=== PATIENT | female | born 1955 | race Hispanic/Latino ===

== ENCOUNTER 2019-05-17 19:24 | Inpatient (IN) | payer OTHER ==
[2019-05-17] VITALS: BP 166/84
[~2019-05-17] VITALS: Ht 157.5 cm; Wt 193.9 kg
--- OUTSIDE RECORDS SUMMARY | 2019-05-17 19:27 | XMS REPORT ---
Author [facility] Address Unknown Phone Unavailable Care Team Providers Care Spice Fumigator Name Role Phone Unavailable Unavailable Problems This patient has no known problems. Allergies, Adverse Reactions, Alerts This patient has no known allergies or adverse reactions. Medications This patient has no known medications. Encounters Start Date/Time End Date/Time Encounter Type Admission Type Attending [facility] [place] Facility Care Department Encounter ID 2018-01-22 00:00:00 2018-01-22 00:00:00 Outpatient [facility] [id number] 2018-01-19 00:00:00 2018-01-19 00:00:00 Outpatient [facility] [id number] 2018-01-10 09:57:35 2018-01-10 09:57:35 Outpatient [facility] [id number] 2018-01-10 05:48:56 2018-01-10 05:48:56 Emergency [facility] [id number] 2018-01-10 00:16:25 2018-01-10 00:16:25 Emergency [facility] [id number] 2018-01-10 00:00:00 2018-01-10 00:00:00 Outpatient [facility] [id number] 2018-01-09 22:42:35 2018-01-09 22:42:35 Emergency [facility] [id number] 2018-01-09 17:48:24 2018-01-09 17:48:24 Emergency [facility] [id number] 2018-01-09 16:13:33 2018-01-09 16:13:33 Outpatient [facility] [id number] 2017-09-11 06:36:22 2017-09-11 06:36:22 Outpatient [facility] [id number] 2017-09-04 11:29:25 2017-09-04 11:29:25 Outpatient [facility] [id number] 2017-08-21 07:49:10 2017-08-21 07:49:10 Outpatient [facility] [id number] 2017-08-18 04:43:03 2017-08-18 04:43:03 Outpatient [facility] [id number] 2017-08-18 00:00:00 2017-08-18 00:00:00 Outpatient [facility] [id number] 2017-08-17 19:39:58 2017-08-17 19:39:58 Emergency [facility] [id number] 2017-08-17 13:54:32 2017-08-17 13:54:32 Outpatient [facility] [id number] 2017-08-01 10:20:21 2017-08-01 10:20:21 Outpatient [facility] [id number] 2017-07-05 08:47:52 2017-07-05 08:47:52 Outpatient [facility] [id number] 2017-06-27 09:29:44 2017-06-27 09:29:44 Outpatient [facility] [id number] 2017-05-24 00:00:00 2017-05-24 00:00:00 Outpatient [facility] [id number] 2017-04-26 14:49:01 2017-04-26 14:49:01 Outpatient [facility] [id number] 2017-04-24 00:00:00 2017-04-24 00:00:00 Outpatient [facility] [id number] 2017-04-21 12:43:26 2017-04-21 12:43:26 Outpatient [facility] [id number] 2017-04-21 11:15:57 2017-04-21 11:15:57 Outpatient [facility] [id number] 2017-03-22 11:18:55 2017-03-22 11:18:55 Outpatient [facility] [id number] 2017-03-22 06:27:32 2017-03-22 06:27:32 Outpatient [facility] [id number] 2017-03-21 15:47:18 2017-03-21 15:47:18 Outpatient [facility] [id number] 2017-03-21 13:59:59 2017-03-21 13:59:59 Outpatient [facility] [id number] 2017-03-21 06:17:34 2017-03-21 06:17:34 Emergency [facility] [id number] 2017-03-21 04:04:37 2017-03-21 04:04:37 Outpatient [facility] [id number] 2017-03-20 23:59:31 2017-03-20 23:59:31 Emergency [facility] [id number]
[2019-05-17] MEDS ORDERED: VANCOMYCIN 1GM/NS 250 ML 250 ML IV ONE (20:00)
[2019-05-17] MEDS ORDERED: VANCOMYCIN 1GM/NS 250 ML 250 ML ONE (20:26)
[2019-05-17] MEDS ORDERED: PIPERACILLIN/TAZO 2.25 GM 50 ML IV ONE (21:15)
[2019-05-17] MEDS: SODIUM CHLORIDE 0.9% 1000ML 1,000 ML IV SCH (21:20)
[2019-05-17] MEDS ORDERED: PIPER-TAZ 3.375 GM 50 ML ONE (21:23)
[2019-05-17] MEDS ORDERED: CIPRO500 MG PO (22:35)
[2019-05-17] MEDS ORDERED: FUROSEMIDE40 MG PO (22:35)
[2019-05-17] MEDS ORDERED: BACTRIM DS TAB1 EACH PO (22:35)
[2019-05-17] MEDS ORDERED: TRAZODONE HCL50 MG PO (22:35)
[2019-05-17] MEDS ORDERED: FLUOXETINE HCL10 MG PO (22:35)
--- NOTE | 2019-05-17 23:15 | NUR ---
Received patient from ems via stretcher. No resp distress at this time. Applied n/c 2L for 91% pulse ox. AAOX4. Noted abd redness and hot to touch. C/O pain to epigastric area of 5 pain scale. LAC 20# intact and patent. Call light within reach and instructed to call for assistance. Patient verbalized understanding.
[2019-05-17] MEDS ORDERED: ULTRAM 50MG50 MG PO (23:46)
[2019-05-17] MEDS ORDERED: GABAPENTIN300 MG PO (23:47)
[2019-05-17] MEDS ORDERED: LISINOPRIL10 MG PO (23:49)
[2019-05-17] MEDS ORDERED: VERAPAMIL ER120 MG (23:49)
[2019-05-17] MEDS ORDERED: CLONIDINE HCL0.1 MG PO (23:51)
[2019-05-17] MEDS ORDERED: CARVEDILOL12.5 MG PO (23:52)
[2019-05-17] MEDS ORDERED: ATORVASTATIN CA20 MG PO (23:52)
[2019-05-18] VITALS (10 sets, daily range): BP systolic 100–186; BP diastolic 46–84
--- NOTE | 2019-05-18 00:10 | NUR ---
Called neon electrician IVELISSE Jay for pain med and xray to bilat hip.
[2019-05-18] MEDS: TRAMADOL HCL 50 MG TAB PO PRN ×2 (00:30→12:15)
[2019-05-18] MEDS ORDERED: HUMALOG MI100 UNITS/ (01:02)
--- NOTE | 2019-05-18 06:26 | NUR ---
Ivett INCLUSION PARAEDUCATOR here for rounding. Received orders for specialty bed, BSC, and recliner.
[2019-05-18] MEDS ORDERED: HYDRALAZINE HCL 20 MG/ML VIAL IV PRN (07:00)
[2019-05-18] MEDS ORDERED: LORAZEPAM INJ 2 MG/ML VIAL IV ONE (07:00)
[2019-05-18] MEDS: SODIUM CHLORIDE 0.9% 1000ML 1,000 ML IV SCH ×2 (07:13→17:13)
--- NOTE | 2019-05-18 07:27 | NUR ---
Received bedside report from night nurse. Patient awake and sitting up in bed, no signs of distress or c/o pain at this time. All safety measures in place. Patient currently getting ready to leave unit for imaging tests. Will continue to monitor upon return.
[2019-05-18 07:47] LABS: BASOPHILS % 0.5 % (0.0-1.0); EOSINOPHILS # (AUTO) 0.2 (0.0-0.4); EOSINOPHILS % 3.1 % (0.0-6.0); HEMATOCRIT 29.2 % (34.2-44.1); HEMOGLOBIN 9.1 g/dL (12.0-16.0); LYMPHOCYTES % 12.6 % (18.0-39.1); MEAN CORPUSCULAR HEMOGLOBIN 27.2 pg (28-32); MEAN CORPUSCULAR HGB CONC 31.2 g/dL (31-35); MEAN CORPUSCULAR VOLUME 87.4 fL (81-99); MONOCYTES # (AUTO) 0.8 (0.2-0.8); MONOCYTES % 10.5 % (4.4-11.3); NEUTROPHILS # (AUTO) 5.7 (2.1-6.9); NEUTROPHILS % 72.8 % (38.7-80.0); PLATELET COUNT 221 x10e3/uL (140-360); RED BLOOD COUNT 3.34 x10e6/uL (3.6-5.1); RED CELL DISTRIBUTION WIDTH 15.7 % (11.7-14.4)
[2019-05-18 08:00] LABS: ANION GAP 15.2 mmol/L (8-16); CALCIUM 9.6 mg/dL (8.4-10.2); CREATININE, SERUM 2.73 mg/dL (0.57-1.11); POTASSIUM 4.2 mmol/L (3.5-5.1)
[2019-05-18 08:05] LABS: B-TYPE NATRIURETIC PEPTIDE2 68.9 pg/mL (0-100)
--- NOTE | 2019-05-18 08:39 | Diagnostic Imaging Report ---
EXAM: CT Abdomen and Pelvis WITHOUT contrast INDICATION: ^r/o abscess ^[id number] ^[id number] COMPARISON: None. TECHNIQUE: Abdomen and pelvis were scanned utilizing a multidetector helical scanner from the lung base to the pubic symphysis without administration of IV contrast. Absence of intravenous contrast decreases sensitivity for detection of focal lesions and vascular pathology. Coronal and sagittal reformations were obtained. Routine protocol was performed. IV CONTRAST: None. ORAL CONTRAST: None RADIATION DOSE: Total DLP: 1504 mGy*cm Estimated effective dose: (DLP x 0.015 x size factor) mSv COMPLICATIONS: None FINDINGS: LINES and TUBES: None. LOWER THORAX: Coronary artery calcifications. HEPATOBILIARY: No focal hepatic lesions. No biliary ductal dilation. GALLBLADDER: No radio-opaque stones or sludge. No wall thickening. SPLEEN: No splenomegaly. PANCREAS: No focal masses or ductal dilatation. ADRENALS: No adrenal nodules KIDNEYS/URETERS: No hydronephrosis. No cystic or solid mass lesions. No stones. GI TRACT: No abnormal distention, wall thickening, or evidence of bowel obstruction. Appendix is not visualized. PELVIC ORGANS/BLADDER: Unremarkable. LYMPH NODES: No lymphadenopathy. VESSELS: Unremarkable. PERITONEUM / RETROPERITONEUM: No free air or fluid. BONES: Pars defects at L5-S1 with associated minimal anterolisthesis of L5 over S1 and moderate degenerative changes at L5-S1. SOFT TISSUES: Extensive fat stranding with adjacent skin thickening in the right gluteal subcutaneous fat without fluid collections or abscess. IMPRESSION: 1. Extensive cellulitis of the right gluteal subcutaneous fat without drainable fluid collections or abscess. 2. No intra-abdominal pelvic abscess or fluid collections. Signed by: Dr. Luciana Mueller M.D. on 05/18/2019 8:35 AM
--- NOTE | 2019-05-18 08:40 | Diagnostic Imaging Report ---
LEFT KNEE X-RAY - 2 VIEWS HISTORY: ^pain s/p fall ^[id number] ^[id number] COMPARISON: None available. FINDINGS: Bones: No acute displaced fracture on limited evaluation. Osseous alignment is within normal limits. Joints: Moderate tricompartmental degenerative changes. Soft tissues: The soft tissues appear unremarkable. IMPRESSION: No acute displaced fractures on limited evaluation. Noted that the lateral tibial plateau is not well visualized and a small nondisplaced fracture cannot be excluded. Signed by: Dr. Luciana Mueller M.D. on 05/18/2019 8:37 AM
[2019-05-18] MEDS: PIPERACILLIN/TAZO 2.25 GM 50 ML IV SCH ×2 (08:41→12:01)
[2019-05-18] MEDS ORDERED: PIPERACILLIN/TAZO 2.25 GM 50 ML IV SCH (09:00)
[2019-05-18] MEDS: CLONIDINE HCL 0.1 MG TAB PO SCH ×3 (10:00→21:27)
[2019-05-18] MEDS: CARVEDILOL 12.5 MG TAB PO SCH (10:00)
[2019-05-18] MEDS: FLUOXETINE HCL 10 MG CAP PO SCH (10:00)
[2019-05-18] MEDS: GABAPENTIN 300 MG CAP PO SCH ×2 (10:00→17:40)
[2019-05-18] MEDS: VERAPAMIL HCL 120 MG TABSR PO SCH ×2 (10:00→17:40)
[2019-05-18] MEDS: VANCOMYCIN 1GM/NS 250 ML 250 ML IV SCH (10:00)
[2019-05-18] MEDS: FUROSEMIDE 40 MG TAB PO SCH (10:08)
[2019-05-18 10:27] LABS: CHOL/HDL RATIO 1.9 (3.0-3.6)
[2019-05-18 10:48] LABS: THYROID STIMULATING HORMONE 1.433 uIU/mL (0.350-4.940)
[2019-05-18] MEDS: MORPHINE SULFATE INJ 4 MG/ML INJ 1ML IV PRN ×2 (11:02→17:55)
--- NOTE | 2019-05-18 16:40 | NUR ---
Nutrition Screen Note RD Recommendation for Physician: 1.Continue with current diet as ordered, add diabetic restrictions Plan of Care: RD following, monitoring for tolerance and adequacy Nutrition reason for involvement: Nutrition Risk Trigger Primary Diagnose(s): Abdominal wall cellulitis PMH: Diabetes Type 2, HTN- per pt Ht: 62in Wt: 426lbs BMI: 77.9kg/m2 IBW:110lbs +/- 10% RD Assessment: (05/18) Chart reviewed. Labs and meds reviewed. 63 y/o Icelandic-speaking F complaining of abdominal pain during time of visit. Pt daughter at bedside and able to provide additional nutrition related hx for patient. Patient reports fair intake and appetite during admission, eating better at home. PTC showed 100% meal consumption. Reported stable weight and denied any significant recent weight changes. Denied any ongoing N/V/D/C or difficulties with chewing/swallowing. Will continue to monitor and follow as needed. Current Diet: Cardiac Diet Malnutrition Evaluation (05/18) The patient does not meet criteria for a specified degree of malnutrition at this time. Will re-evaluate at follow-up as appropriate. Diet Education Needs Assessment: Diet education not indicated. Nutrition Care Level: LOW Signed: Britta Brody, MS, RDN, LD
--- NOTE | 2019-05-18 16:56 | NUR ---
PT requested lower bariatric bed for patient d/t difficulty getting back into bed. Charge nurse called [facility] ( ) to put in order. Confirmation number [id number].
--- NOTE | 2019-05-18 17:04 | NUR ---
[facility] that patient's current bariatric bed is lowest bed available. No lower bed available.
--- NOTE | 2019-05-18 19:27 | NUR ---
Bedside report given to night nurse. Patient resting in bed, in stable condition. All safety measures in place. Family at bedside.
--- NOTE | 2019-05-18 19:33 | Consultation ---
DATE OF CONSULTATION: 05/18/2019 REASON FOR CONSULTATION: Cellulitis of abdominal wall. HISTORY OF PRESENT ILLNESS: This patient, who is a morbidly obese 63-year-old female, comes in with abdominal swelling and redness for the last month. She took oral antibiotic without any improvement. The patient came to the hospital because of the redness and swelling. The patient, who is currently lying in bed. She does have underlying history of hypertension, morbidly obese patient. Family not so sure if she have also congestive heart failure, but they told me she has underlying chronic kidney disease. So the patient was admitted and I am asked to see her because of failing oral antibiotic. The patient is admitted. LABORATORY DATA: White count 7.8 and hemoglobin 9.1. Her sodium 138, potassium 4.2, creatinine 2.73, and glucose is 262. The patient had CT of abdomen and pelvis, which showed extensive cellulitis of the right gluteus subcutaneous with fat and there is no drainable abscess. REVIEW OF SYSTEMS: GENERAL: She is just not feeling well. HEENT: There is no headache, visual changes, or hearing changes. GI: There is no nausea, no vomiting. LUNGS: She does have exertional shortness of breath. Otherwise, review of systems unremarkable. MEDICATION LIST: Reviewed. She is currently on Catapres, Ultram, she was on Zosyn as mentioned above, Lasix, Calan, and vancomycin 1 g q.24. PHYSICAL EXAMINATION: GENERAL: She is currently alert and oriented, obese, and does not seem to be in acute distress. HEENT: Not icteric. CHEST: Clear bilateral. HEART: S1 and S2. ABDOMEN: Obese, there is erythema. There is edema noted on the abdominal wall. IMPRESSION: 1. Abdominal cellulitis. The patient is morbidly obese. 2. Chronic kidney disease. 3. Congestive heart failure. 4. Generalized edema. 5. Failure of outpatient oral antibiotic due to her obesity and significant edema. I would recommend to put her on vancomycin and cefepime. We will follow vancomycin trough. We will discontinue Zosyn since she has high salt burden. 6. Diabetes. 7. Obesity. 8. Chronic kidney disease. 9. Debility. We will follow. MD DRISS Esparza/FRANCESCA /[id number]
[2019-05-18] MEDS: ATORVASTATIN 40 MG TAB PO SCH (21:27)
[2019-05-19] VITALS (8 sets, daily range): BP systolic 115–156; BP diastolic 54–86
[2019-05-19] MEDS: SODIUM CHLORIDE 0.9% 1000ML 1,000 ML IV SCH ×3 (03:13→23:13)
[2019-05-19 04:43] LABS: BASOPHILS % 0.5 % (0.0-1.0); EOSINOPHILS # (AUTO) 0.5 (0.0-0.4); EOSINOPHILS % 5.7 % (0.0-6.0); HEMOGLOBIN 8.4 g/dL (12.0-16.0); LYMPHOCYTES # (AUTO) 1.2 (1.0-3.2); LYMPHOCYTES % 13.9 % (18.0-39.1); MEAN CORPUSCULAR HEMOGLOBIN 26.8 pg (28-32); MEAN CORPUSCULAR VOLUME 89.5 fL (81-99); MONOCYTES # (AUTO) 0.9 (0.2-0.8); MONOCYTES % 11.4 % (4.4-11.3); NEUTROPHILS # (AUTO) 5.7 (2.1-6.9); NEUTROPHILS % 68.1 % (38.7-80.0); PLATELET COUNT 231 x10e3/uL (140-360); RED BLOOD COUNT 3.13 x10e6/uL (3.6-5.1); RED CELL DISTRIBUTION WIDTH 15.9 % (11.7-14.4)
[2019-05-19 05:10] LABS: ANION GAP 15.7 mmol/L (8-16); CALCIUM 9.2 mg/dL (8.4-10.2); CREATININE, SERUM 3.32 mg/dL (0.57-1.11); POTASSIUM 4.7 mmol/L (3.5-5.1)
[2019-05-19 05:34] LABS: THYROID STIMULATING HORMONE 1.837 uIU/mL (0.350-4.940)
[2019-05-19] MEDS: MORPHINE SULFATE INJ 4 MG/ML INJ 1ML IV PRN ×3 (06:05→19:38)
--- NOTE | 2019-05-19 07:00 | NUR ---
BEDSIDE SHIFT REPORT FROM DIGITAL ADVERTISING ANALYST RN. PT DENIES NEEDS AT THIS TIME.
[2019-05-19] MEDS ORDERED: LORAZEPAM INJ 2 MG/ML VIAL IV ONE (07:15)
[2019-05-19] MEDS: VANCOMYCIN 1GM/NS 250 ML 250 ML IV SCH (07:21)
[2019-05-19] MEDS: FERROUS SULFATE 325 MG TAB PO SCH ×2 (08:19→16:40)
[2019-05-19] MEDS: CEFEPIME 1GM/NS 0.9% 50 ML 50 ML IV SCH (08:19)
[2019-05-19] MEDS: CLONIDINE HCL 0.1 MG TAB PO SCH ×3 (08:20→21:55)
[2019-05-19] MEDS: VERAPAMIL HCL 120 MG TABSR PO SCH ×2 (08:20→16:40)
[2019-05-19] MEDS: DOCUSATE SODIUM 100 MG CAP PO SCH ×2 (08:20→16:40)
[2019-05-19] MEDS: CARVEDILOL 12.5 MG TAB PO SCH (08:20)
[2019-05-19] MEDS: FLUOXETINE HCL 10 MG CAP PO SCH (08:21)
[2019-05-19] MEDS: ASCORBIC ACID 500 MG TAB PO SCH ×2 (08:21→16:40)
[2019-05-19] MEDS: TRAMADOL HCL 50 MG TAB PO PRN ×2 (08:21→17:38)
[2019-05-19] MEDS: GABAPENTIN 300 MG CAP PO SCH (08:21)
[2019-05-19] MEDS: FUROSEMIDE 40 MG TAB PO SCH (08:24)
[2019-05-19] MEDS ORDERED: CEFEPIME HCL 1 GM VIAL IV SCH (09:00)
[2019-05-19] MEDS ORDERED: LORAZEPAM INJ 2 MG/ML VIAL IV NR (12:30)
[2019-05-19] MEDS ORDERED: LORAZEPAM INJ 2 MG/ML VIAL ONE (12:30)
--- NOTE | 2019-05-19 15:38 | Diagnostic Imaging Report ---
LEFT SHOULDER - 1 Image(s) : Single internal rotation view HISTORY: Shoulder pain, abdominal wall cellulitis COMPARISON: None available. FINDINGS: Evaluation is markedly limited secondary to a single projection and soft tissue attenuation. Evaluation is further limited by portable technique and overlying artifacts. Bones: No acute displaced fracture. No aggressive osseous lesion. Joints: Moderate degenerative changes of the chronic ventricular joint. Soft tissues: The soft tissues appear unremarkable. IMPRESSION: 1. Moderate acromioclavicular osteoarthrosis. 2. Recommend routine 3 view shoulder radiograph series (performed in the radiology department/nonportable) when feasible for further evaluation. Signed by: Dr. Talha Araujo D.O., M.M.M. on 05/19/2019 3:35 PM
--- NOTE | 2019-05-19 16:02 | Consultation ---
DATE OF CONSULTATION: 05/19/2019 Nephrology Consultation CHIEF COMPLAINT: Abdominal cellulitis. REASON FOR CONSULTATION: Mbvxs-uo-uodpeet kidney disease. HISTORY OF PRESENT ILLNESS: This is a 63-year-old female, morbidly obese with a history of uncontrolled type 2 diabetes, hypertension, and obstructive sleep apnea, presents to the emergency room with underlying abdominal swelling and redness ongoing for the last one month. The patient reports she was taking some oral antibiotics with no improvement. Due to her worsening cellulitis, she came into the emergency room for further evaluation. Nephrology was consulted due to underlying acute kidney injury on chronic kidney disease. The patient was seen and evaluated at bedside on the medical floor with the nursing staff present. Currently, she is doing well with no other complaints. After further interview, the patient does take NSAIDs at home for chronic pain issues, but denies any herbal supplements [id number]. No chronic urinary tract infections. No history of any renal stones. No family history of any one on dialysis. Denies any hematuria. Does report having type 2 diabetes for 20 plus years on insulin, uncontrolled as well as hypertension. She is also morbidly obese and also has obstructive sleep apnea, but refuses to wear the CPAP machine. The patient is seen and evaluated at bedside on the medical floor. She is currently doing well with no other issues at this time. REVIEW OF SYSTEMS: Pertinent positives: Abdominal wall cellulitis and redness. Pertinent negatives: Denies any chest pain, palpitation, nausea, vomiting, diarrhea, dysuria, hematuria, frequency, urgency, lightheadedness, dizziness, abdominal pain, headaches, shortness of breath, cough, congestion, fever, or any other complaints. The rest of the 14-point review of systems have been reviewed with the patient and are negative. ALLERGIES: NO KNOWN DRUG ALLERGIES. HOME MEDICATIONS: Lipitor 80 mg daily, Coreg 12.5 mg daily, clonidine 0.1 mg p.o. t.i.d., fluoxetine 10 mg daily, furosemide 40 mg daily, gabapentin 300 mg p.o. b.i.d., tramadol 50 mg daily, verapamil 120 mg extended-release b.i.d., Cipro, insulin, lisinopril, Bactrim, and trazodone. PAST MEDICAL HISTORY: Type 2 diabetes, hypertension, morbidly obese, peripheral neuropathy, and history of depression. PAST SURGICAL HISTORY: Reports none. FAMILY HISTORY: Hypertension and diabetes. SOCIAL HISTORY: No drugs. No alcohol. Does not smoke. Good social support. PHYSICAL EXAMINATION: VITAL SIGNS: Temperature is 97.6, pulse is 66, respiratory rate is 19, blood pressure 128/61, and pulse ox 97% and she is on nasal cannula. GENERAL: Not in acute distress. Alert and oriented x3. Cooperative on examination. She is morbidly obese. HEENT: Head; normocephalic, atraumatic. Eyes; pupils are equal, round, and reactive to light bilaterally. Extraocular movements intact bilaterally. Throat; no evidence of erythema or exudates in the posterior pharynx. Has poor dentition. NECK: Supple. Good range of motion. PULMONARY: Clear to auscultation bilaterally. No wheezing, no rales, no rhonchi, no crackles appreciated. CARDIOVASCULAR: Positive S1 and S2. No murmurs, rubs, or gallops appreciated. ABDOMEN: Shows cellulitis and redness. SKIN: Intact. Warm to touch. Good cap refill. PSYCHIATRIC: Normal affect and mood. EXTREMITIES: No edema. Good range of motion throughout. LABORATORY FINDINGS: Show white count 8.2, hemoglobin 8.4, hematocrit is 28, and platelets of 231. Chemistry; sodium 138, potassium 4.7, chloride 101, bicarb 26, anion gap of 15, BUN is 47, creatinine is 3.3, and her prior creatinine was 2.7 on admission. No prior creatinine is to compare. Glucose 151 and calcium 9.2. BNP 36. LDL cholesterol found to be 27. Her TSH was 1.8. MICROBIOLOGY: None. IMAGING STUDIES: Knee x-ray shows no acute displaced fracture on the limited evaluation. Noted that the lateral tibial plateau was not well visualized and a small nondisplaced fracture cannot be excluded. CT abdomen and pelvis, extensive cellulitis of the right gluteal subcutaneous fat without drainable fluid collection or abscess. No intraabdominal pelvic abscess or fluid collection. IMPRESSION: 1. Abdominal wall cellulitis with erythema. 2. Acute kidney injury, likely with underlying chronic kidney disease due to her multiple comorbidities. 3. Hypertension. 4. Uncontrolled type 2 diabetes. PLAN: At this time, from a renal standpoint, I will go ahead and get a UA, which is very important. We will also get a urine protein to creatinine to quantify any proteinuria, microalbumin to creatinine, urine sodium, urine eosinophils, and calculated FENa, fractional excretion of sodium. We will go ahead and get a renal ultrasound as well. I do not have any creatinines to compare to see what her baseline creatinine is. She gets most of her treatment at [facility]. Her electrolytes are stable. I did discontinue the gabapentin due to a renally inappropriately dose. I also reviewed the other medications, which seemed to be renally dosed. Also combinations of vancomycin as well as Zosyn increase the risk for renal failure, but the antibiotics have been changed now to vancomycin and cefepime. Monitor vancomycin trough levels. MD VIDAL Thrasher/FRANCESCA /[id number]
--- NOTE | 2019-05-19 18:29 | NUR ---
CALLED AND SPOKE TO YOVANI ABOUT NOT BEING ABLE TO DO THE CT SCANS TODAY. EVEN WITH THE ASSISTANCE OF 4 NURSES AND REPOSITIONING THE PT HEAD AND FOOT FIRST POSITION, THE PT WAS NOT ABLE TO FIT THE EQUIPMENT.
[2019-05-19] MEDS: ATORVASTATIN 40 MG TAB PO SCH (21:55)
[2019-05-19 23:11] LABS: CREATININE,URINE RANDOM 59.61 mg/dL (47-110); SODIUM,URINE 66 mmol/L; TOTAL PROTEIN, URINE 10.9 mg/dL (1-14)
[2019-05-19 23:19] LABS: CLARITY,URINE CLEAR (CLEAR); COLOR,URINE YELLOW (YELLOW)
[2019-05-19 23:20] LABS: BILIRUBIN,URINE NEGATIVE (NEGATIVE); KETONES,URINE NEGATIVE (NEGATIVE); LEUKOCYTE ESTERASE ,URINE NEGATIVE (NEGATIVE); NITRITE,URINE NEGATIVE (NEGATIVE); PROTEIN,URINE DIPSTICK NEGATIVE (NEGATIVE); URINE UROBILINOGEN 0.2 mg/dL (0.2 - 1)
[2019-05-20] VITALS (8 sets, daily range): BP systolic 121–166; BP diastolic 46–79
[2019-05-20 01:16] LABS: EOSINOPHIL SMEAR,URINE NONE SEEN (NONE SEEN)
[2019-05-20 03:02] LABS: BACTERIA,URINE FEW /HPF; RBC,URINE 0-5 /HPF (0-5); WBC,URINE (MAN) 0-5 /HPF (0-5)
[2019-05-20 03:03] LABS: EPITHELIAL CELLS,URINE FEW /LPF
[2019-05-20 04:15] LABS: BASOPHILS % 0.3 % (0.0-1.0); EOSINOPHILS # (AUTO) 0.2 (0.0-0.4); EOSINOPHILS % 1.7 % (0.0-6.0); HEMATOCRIT 26.8 % (34.2-44.1); HEMOGLOBIN 8.1 g/dL (12.0-16.0); LYMPHOCYTES # (AUTO) 0.9 (1.0-3.2); MEAN CORPUSCULAR HEMOGLOBIN 26.9 pg (28-32); MEAN CORPUSCULAR HGB CONC 30.2 g/dL (31-35); MONOCYTES # (AUTO) 1.3 (0.2-0.8); MONOCYTES % 11.5 % (4.4-11.3); NEUTROPHILS # (AUTO) 8.8 (2.1-6.9); PLATELET COUNT 200 x10e3/uL (140-360); RED BLOOD COUNT 3.01 x10e6/uL (3.6-5.1); RED CELL DISTRIBUTION WIDTH 15.5 % (11.7-14.4)
[2019-05-20] MEDS: MORPHINE SULFATE INJ 4 MG/ML INJ 1ML IV PRN ×3 (04:31→17:42)
[2019-05-20 04:35] LABS: ANION GAP 15.5 mmol/L (8-16); CREATININE, SERUM 3.62 mg/dL (0.57-1.11); PHOSPHORUS 4.7 MG/DL (2.3-4.7); POTASSIUM 4.5 mmol/L (3.5-5.1)
[2019-05-20 04:55] LABS: FERRITIN 29.97 ng/mL (4.63-204.00)
[2019-05-20 04:56] LABS: FERRITIN 31.93 ng/mL (4.63-204.00)
[2019-05-20 05:11] LABS: FOLATE 7.5 ng/mL (7.0-15.4)
[2019-05-20] MEDS: VANCOMYCIN 1GM/NS 250 ML 250 ML IV SCH (06:04)
[2019-05-20] MEDS ORDERED: BISACODYL 5 MG TAB EC PO PRN (06:15)
--- NOTE | 2019-05-20 07:25 | Diagnostic Imaging Report ---
X-ray left shoulder 2 views HISTORY: Pain. COMPARISON: Left shoulder radiographs 05/19/2019. FINDINGS: Bones: No acute displaced fracture. Inferior subluxation of the left humeral head relative to the glenoid. Joints: Degenerative changes in the acromioclavicular and glenohumeral joint. Soft tissues: The soft tissues appear unremarkable. IMPRESSION: Inferior subluxation of the left humeral head relative to the glenoid, can be due to muscle laxity. Degenerative changes in the shoulder. Signed by: Will Mills DO on 05/20/2019 7:22 AM
[2019-05-20] MEDS: TRAMADOL HCL 50 MG TAB PO PRN (07:49)
--- NOTE | 2019-05-20 08:59 | NUR ---
Placed call to [facility] regarding pt's benefits. Left VM to callback.
[2019-05-20] MEDS: VERAPAMIL HCL 120 MG TABSR PO SCH ×2 (09:12→16:23)
[2019-05-20] MEDS: FERROUS SULFATE 325 MG TAB PO SCH ×2 (09:12→16:23)
[2019-05-20] MEDS: ASCORBIC ACID 500 MG TAB PO SCH ×2 (09:13→16:23)
[2019-05-20] MEDS: CARVEDILOL 12.5 MG TAB PO SCH (09:13)
[2019-05-20] MEDS: FOLIC ACID 1 MG TAB PO SCH (09:13)
[2019-05-20] MEDS: DOCUSATE SODIUM 100 MG CAP PO SCH ×2 (09:13→16:23)
[2019-05-20] MEDS: CLONIDINE HCL 0.1 MG TAB PO SCH ×3 (09:13→21:30)
[2019-05-20] MEDS: FUROSEMIDE 40 MG TAB PO SCH (09:13)
[2019-05-20] MEDS: POLYETHYLENE GLYCOL 3350 17 GM PACK PO SCH ×2 (09:13→16:23)
[2019-05-20] MEDS: FLUOXETINE HCL 10 MG CAP PO SCH (09:13)
[2019-05-20] MEDS: CEFEPIME 1GM/NS 0.9% 50 ML 50 ML IV SCH (09:45)
[2019-05-20 12:09] LABS: INR 1.11; PROTHROMBIN TIME 14.8 seconds (11.9-14.5)
--- NOTE | 2019-05-20 12:36 | Progress Note ---
DATE: 05/20/2019 Nephrology Progress Note SUBJECTIVE: The patient is at baseline with no other issues. She is in the process of getting a central chest wall catheter for IV antibiotic therapy outpatient. Plan is overall either LTAC or fdc facility if she qualifies. PHYSICAL EXAMINATION: VITAL SIGNS: Temperature is 98.9, pulse 73, respiratory rate is 20, blood pressure is 121/46, pulse ox is 93%. She is on 3 L nasal cannula. GENERAL: Morbidly obese. Alert and oriented x3. Cooperative on examination. HEENT: Head; normocephalic, atraumatic. Eyes; pupils are equal, round, and reactive to light bilaterally. Extraocular movements are intact bilaterally. Throat; no evidence of any erythema or exudates in the posterior pharynx. Has poor dentition. NECK: Supple. Good range of motion. PULMONARY: Clear to auscultation bilaterally. No wheezing, no rales, no rhonchi, no crackles appreciated. CARDIOVASCULAR: Positive S1 and S2. No murmurs, rubs, or gallops appreciated. ABDOMEN: Soft, nondistended, and nontender to palpation. Bowel sounds present. MUSCULOSKELETAL: Strength is 5/5 throughout. No evidence of any muscle deficits on examination. No weakness appreciated. NEUROLOGIC: Cranial nerve 2 through 12 grossly intact. No evidence of any neurological deficits on exam. SKIN: Intact. Warm to touch. Good cap refill. PSYCHIATRIC: Normal affect and mood. EXTREMITIES: No edema. Good range of motion throughout. LABORATORY DATA: Laboratory findings show white count of 11.2, hemoglobin 8.1, hematocrit is 26, and platelets of 200. Chemistry; sodium 134, potassium 4.5, chloride 97, bicarb 26, anion gap of 15, BUN is 48, creatinine is 3.62, glucose is 188. Iron saturation is 6%. PTH is pending. TSH is 1.8. Folic acid is 7.5, vitamin B12 1824. Urinalysis noted. Urine protein to creatinine was 0 g. Urine sodium 66. Eosinophil in the urine not noted. MICROBIOLOGY: Pending. IMAGING STUDIES: Renal ultrasound pending. IMPRESSION: 1. Abdominal wall cellulitis with underlying erythema. 2. Acute kidney injury. No with worsening renal function, unknown baseline. 3. Hypertension. 4. Uncontrolled type 2 diabetes. PLAN: At this time I reviewed her urine protein to creatinine, which show 0 g proteinuria, which having a difficult time understanding. She has had long-standing hypertension and diabetes for 20+ years now. We will need to repeat UPC and microalbumin to creatinine ratio. Her urine eosinophils were found to be negative. Urine sodium was greater than 66, so she is dumping sodium out in the urine. We are waiting on a vancomycin trough level which could be playing a role in her worsening renal function. I am also awaiting on a renal ultrasound as well which will help and determine if it is obstructive and also will tell me if there is some evidence of chronic disease. The family also reports they are going to bring the records from [facility] to see what her baseline creatinine function was in the past. At this time, her renal function has worsened to 3.6. There is no indication for renal replacement therapy at this time. We will have to monitor her very closely. Her other electrolytes are stable. We will continue to follow. MD VIDAL Thrasher/MODL /[id number]
--- NOTE | 2019-05-20 13:03 | NUR ---
Placed another call to Janice Cartagena with [facility]. Left for callback.
[2019-05-20] MEDS: SODIUM CHLORIDE 0.9% 1000ML 1,000 ML IV SCH (14:16)
--- NOTE | 2019-05-20 14:45 | NUR ---
Received callback from Janice Cartagena. She states that pt's plan only has benefits for inpatient rehab and home health. Stated inpatient rehab would have to be reviewed and approved by [facility] and that typically takes up to 3 days. States pt has 30 inpatient days for every 60 days that pt stays out of the hospital. She also stated that they do not do one time contracts for SNF. Janice stated that [facility] and [facility] are both in network. CM informed Ivett RN [facility] and received order for inpatient rehab. Spoke to pt and her sister Annita at bedside. They are in agreement with inpatient rehab. States wants to stay in this area. Gave choice for [facility]. Choice letter signed by sister, per pt's request, and placed in chart. Copy to pt's sister. Left CM's business card for any additional questions/concerns. Referral was faxed to [facility] at [phone]. Alix Garcia, rep with [facility] was notified of referral.
[2019-05-20] MEDS: ACETAMINOPHEN 325 MG TAB PO PRN (16:24)
--- NOTE | 2019-05-20 17:27 | Diagnostic Imaging Report ---
Examination: Single AP view of the chest. COMPARISON: None. INDICATION: Central line placement DISCUSSION: Lines/tubes: Right IJ catheter with tip overlying the low SVC. Lungs: Limited evaluation due to rotation, unremarkable. Pleura: Limited evaluation Heart and mediastinum: Limited evaluation Bones and soft tissues: No acute bony abnormalities. IMPRESSION: Patient rotated. Right PICC line with tip overlying the low SVC. Signed by: Dr. Micheal Hernandez M.D. on 05/20/2019 5:23 PM
--- NOTE | 2019-05-20 17:30 | Diagnostic Imaging Report ---
EXAM: Renal Ultrasound INDICATION: Acute kidney injury. COMPARISON: CT abdomen and pelvis of 05/18/2019 TECHNIQUE: Transverse and longitudinal images of the kidneys and bladder were obtained. FINDINGS: Extremely difficult exam due to patient body habitus. Right Kidney: Not visualized due to patient body habitus and inability to turn. Left Kidney: Length: 10.6 cm Appearance: Normal echogenicity. Collecting system: No hydronephrosis Stones: None Cyst/Mass: None Bladder: Caldera in place. IMPRESSION: Extremely limited exam due to patient body habitus and inability to move or turn. Right kidney not visualized. No renal calculi or hydronephrosis on the left. Signed by: Abdullahi Townsend MD on 05/20/2019 5:26 PM
[2019-05-20] MEDS: LIDOCAINE 5% PATCH TP SCH (17:42)
--- NOTE | 2019-05-20 17:43 | Diagnostic Imaging Report ---
PROCEDURE: Non-tunneled central venous catheter placement Procedural Personnel Attending physician(s): Abdullahi Townsend MD Fellow physician(s): None Resident physician(s): None Advanced practice provider(s): None Pre-procedure diagnosis: Sepsis Post-procedure diagnosis: Same Indication: Administration of intravenous medications Additional clinical history: None Complications: No immediate complications. IMPRESSION: Insertion of right-sided non-tunneled triple-lumen temporary central venous catheter. Plan: Portable chest radiograph to confirm location prior to use. PROCEDURE SUMMARY: - Venous access with ultrasound guidance - Non-tunneled central venous catheter insertion - Additional procedure(s): None PROCEDURE DETAILS: Pre-procedure Consent: Informed consent for the procedure including risks, benefits and alternatives was obtained and time-out was performed prior to the procedure. Preparation (MIPS): The site was prepared and draped using all elements of maximal sterile barrier technique including sterile gloves, sterile gown, cap, mask, large sterile sheet, sterile ultrasound probe cover, hand hygiene and cutaneous antisepsis with 2% chlorhexidine. Medical reason for site preparation exception (MIPS): Not applicable Anesthesia/sedation Level of anesthesia/sedation: No sedation Access Local anesthesia was administered. The vessel was sonographically evaluated and determined to be patent. Real time ultrasound was used to visualize needle entry into the vessel and a permanent image was stored. Vein accessed: Internal jugular vein Access technique: 19 gauge access needle Catheter placement The access site was dilated and the catheter was placed into the vein over a wire. A sterile dressing was applied. Catheter placed: Bard triple lumen CVC Catheter size (American): 7 Catheter length (cm): 16 Catheter flush: Normal saline Catheter securement technique: Non-absorbable suture Contrast Contrast agent: None Radiation Dose None, ultrasound guidance only. Chest radiograph to follow. Additional Details Additional description of procedure: None Equipment details: None Specimens removed: None Estimated blood loss (mL): Less than 10 Standardized report: [email or web address] Attestation Signer name: Abdullahi Townsend MD I attest that I was present for the entire procedure. I reviewed the stored images and agree with the report as written. Signed by: Abdullahi Townsend MD on 05/20/2019 5:39 PM
--- NOTE | 2019-05-20 19:10 | NUR ---
Bedside rounds completed with morning nurse. Pt alert and oriented to name. Lying in bariatric bed HOB 45 degrees. Call light within reach. Will continue to monitor.
[2019-05-20] MEDS ORDERED: DEXTROSE 50% SYRINGE 50 ML IV PRN (20:45)
[2019-05-20] MEDS ORDERED: MORPHINE SULFATE INJ 4 MG/ML INJ 1ML IV PRN (20:45)
[2019-05-20] MEDS: INSULIN REGULAR, HUMAN 100 UNIT/1 ML 3ML VIAL SQ SCH (21:00)
[2019-05-20] MEDS: ATORVASTATIN 40 MG TAB PO SCH (21:30)
[2019-05-20] MEDS: MORPHINE SULFATE 2 MG/ML SYR 1ML IV PRN (21:31)
[2019-05-21] VITALS (9 sets, daily range): BP systolic 105–161; BP diastolic 46–70
[2019-05-21 03:40] LABS: BASOPHILS % 0.3 % (0.0-1.0); EOSINOPHILS # (AUTO) 0.1 (0.0-0.4); EOSINOPHILS % 0.5 % (0.0-6.0); HEMATOCRIT 26.6 % (34.2-44.1); HEMOGLOBIN 8.2 g/dL (12.0-16.0); LYMPHOCYTES # (AUTO) 0.6 (1.0-3.2); LYMPHOCYTES % 5.4 % (18.0-39.1); MEAN CORPUSCULAR HEMOGLOBIN 27.6 pg (28-32); MEAN CORPUSCULAR HGB CONC 30.8 g/dL (31-35); MEAN CORPUSCULAR VOLUME 89.6 fL (81-99); MONOCYTES # (AUTO) 1.5 (0.2-0.8); MONOCYTES % 13.1 % (4.4-11.3); NEUTROPHILS # (AUTO) 9.5 (2.1-6.9); NEUTROPHILS % 80.2 % (38.7-80.0); PLATELET COUNT 179 x10e3/uL (140-360); RED BLOOD COUNT 2.97 x10e6/uL (3.6-5.1); RED CELL DISTRIBUTION WIDTH 15.3 % (11.7-14.4)
[2019-05-21 03:58] LABS: ANION GAP 11.6 mmol/L (8-16); CALCIUM 8.9 mg/dL (8.4-10.2); CREATININE, SERUM 3.37 mg/dL (0.57-1.11); POTASSIUM 4.6 mmol/L (3.5-5.1)
[2019-05-21] MEDS: MORPHINE SULFATE 2 MG/ML SYR 1ML IV PRN ×5 (05:05→23:10)
[2019-05-21] MEDS: SODIUM CHLORIDE 0.9% 1000ML 1,000 ML IV SCH ×2 (05:13→16:14)
--- NOTE | 2019-05-21 06:35 | NUR ---
Patient resting in bed. No acute distress noted. Call castillo within reach.
[2019-05-21] MEDS: VANCOMYCIN 1GM/NS 250 ML 250 ML IV SCH (07:14)
[2019-05-21] MEDS: TRAMADOL HCL 50 MG TAB PO PRN (08:30)
[2019-05-21] MEDS: INSULIN REGULAR, HUMAN 100 UNIT/1 ML 3ML VIAL SQ SCH ×4 (08:30→21:00)
[2019-05-21] MEDS: FERROUS SULFATE 325 MG TAB PO SCH ×2 (08:30→16:01)
[2019-05-21] MEDS: VERAPAMIL HCL 120 MG TABSR PO SCH ×2 (08:30→16:01)
[2019-05-21] MEDS: DOCUSATE SODIUM 100 MG CAP PO SCH ×2 (08:36→16:01)
[2019-05-21] MEDS: CLONIDINE HCL 0.1 MG TAB PO SCH ×3 (08:36→21:00)
[2019-05-21] MEDS: ASCORBIC ACID 500 MG TAB PO SCH ×2 (08:37→16:01)
[2019-05-21] MEDS: POLYETHYLENE GLYCOL 3350 17 GM PACK PO SCH ×2 (08:37→16:01)
[2019-05-21] MEDS: FOLIC ACID 1 MG TAB PO SCH (08:37)
[2019-05-21] MEDS: FLUOXETINE HCL 10 MG CAP PO SCH (08:37)
[2019-05-21] MEDS: CARVEDILOL 12.5 MG TAB PO SCH (08:37)
[2019-05-21] MEDS: LIDOCAINE 5% PATCH TP SCH (08:41)
[2019-05-21] MEDS: CEFEPIME 1GM/NS 0.9% 50 ML 50 ML IV SCH (08:57)
[2019-05-21] MEDS: FUROSEMIDE 40 MG TAB PO SCH (08:57)
[2019-05-21] MEDS ORDERED: BISACODYL 5 MG TAB EC PO ONE (09:10)
--- NOTE | 2019-05-21 09:14 | NUR ---
Notified of new consult
[2019-05-21] MEDS: ACETAMINOPHEN 325 MG TAB PO PRN (12:23)
--- NOTE | 2019-05-21 12:24 | NUR ---
Ivett Jones NP aware of T100.1. No new orders
--- NOTE | 2019-05-21 15:21 | Progress Note ---
DATE: 05/21/2019 Nephrology Progress Note SUBJECTIVE: The patient is doing well today with no complaints. Still do have the records from [facility] in terms of what her renal function is. PHYSICAL EXAMINATION: VITAL SIGNS: Temperature is 98.8, pulse 76, respiratory rate 16, blood pressure 130/47, and pulse ox is 95% on 3 L nasal cannula. GENERAL: No acute distress. Alert and oriented x3. Cooperative on examination. HEENT: Head is normocephalic and atraumatic. Eyes; pupils are equal, round, and reactive to light bilaterally. Extraocular movements are intact. Neck; supple, good range of motion. Throat; no evidence of erythema or exudates in the posterior pharynx. Has poor dentition. PULMONARY: Clear to auscultation bilaterally. No wheezing, rales, or rhonchi, and no crackles appreciated. CARDIOVASCULAR: Positive S1, S2. No murmurs, rubs, or gallops appreciated. ABDOMEN: Soft, nondistended, and nontender to palpation. Bowel sounds present. MUSCULOSKELETAL: Strength is 5/5 throughout. No evidence of any muscle deficits on examination. No weakness appreciated. NEUROLOGIC: Cranial nerve II through XII grossly intact. No evidence of any neurological deficits on exam. SKIN: Intact. Warm to touch. Good cap refill. PSYCHIATRIC: Normal affect and mood. EXTREMITIES: No edema. Good range of motion throughout. LABORATORY FINDINGS: White count is 11.7, hemoglobin 8.2, hematocrit 26, and platelets of 179. Chemistry; sodium 132, potassium 4.6, chloride 97, bicarb 20, anion gap of 11, BUN is 53. Creatinine down trending to 3.37 from 3.6. BUN is slightly elevated. PTH level still pending. The LDL was 27. MICROBIOLOGY: None. IMAGING STUDIES: None. IMPRESSION: 1. Abdominal wall cellulitis with underlying erythema. 2. Acute kidney injury with worsening renal function, now her creatinine did downtrend today. Electrolytes are stable. 3. Hypertension. 4. Uncontrolled type 2 diabetes. PLAN: At this time, I am still waiting for the records from [facility] to see what her baseline creatinine is. Otherwise, her renal ultrasound showed the kidneys were hard to see due to the patient's body habitus, but what they were able to comment was the right kidney, they were not able to visualize, left kidney measured at 10.6 cm. There was no evidence of renal calculi or hydronephrosis on the left kidney. I cannot comment on any medical renal disease on this because of the imaging study. At this time, we will continue to monitor very closely. Her renal function did improve. We will repeat labs in the morning. Electrolytes are stable. I suspected the patient's baseline is approximately in the 2.5 range. I do knee the records from [facility] to confirm that. Otherwise, we will continue same plan of care and monitor very closely. MD VIDAL Thrasher/MODL /[id number]
[2019-05-21] MEDS: DICLOFENAC SOD 1% GEL 100 GM TUBE TP SCH ×2 (16:14→21:00)
--- NOTE | 2019-05-21 16:16 | NUR ---
Faxed PT note to [facility] at [phone]. Left message for Alix Garcia, rep with [facility]
--- NOTE | 2019-05-21 18:35 | NUR ---
Resting in bed semi fowlers position, side rails upx2, call light within reach, daughter at bedside. No s/s of acute distress noted. Report to be given to oncoming nurse of patient's status.
[2019-05-21] MEDS: ATORVASTATIN 40 MG TAB PO SCH (21:00)
[2019-05-22] VITALS (9 sets, daily range): BP systolic 108–143; BP diastolic 48–71
[2019-05-22] MEDS: ALBUTEROL/IPRATROPIUM 3 ML NEB NEB SCH ×4 (01:00→20:06)
[2019-05-22] MEDS: MORPHINE SULFATE 2 MG/ML SYR 1ML IV PRN (04:15)
[2019-05-22 04:39] LABS: BASOPHILS % 0.2 % (0.0-1.0); EOSINOPHILS # (AUTO) 0.4 (0.0-0.4); EOSINOPHILS % 3.7 % (0.0-6.0); HEMATOCRIT 25.3 % (34.2-44.1); HEMOGLOBIN 7.8 g/dL (12.0-16.0); LYMPHOCYTES % 9.7 % (18.0-39.1); MEAN CORPUSCULAR HEMOGLOBIN 27.3 pg (28-32); MEAN CORPUSCULAR HGB CONC 30.8 g/dL (31-35); MEAN CORPUSCULAR VOLUME 88.5 fL (81-99); MONOCYTES # (AUTO) 1.3 (0.2-0.8); MONOCYTES % 12.6 % (4.4-11.3); NEUTROPHILS # (AUTO) 7.4 (2.1-6.9); NEUTROPHILS % 73.2 % (38.7-80.0); PLATELET COUNT 172 x10e3/uL (140-360); RED BLOOD COUNT 2.86 x10e6/uL (3.6-5.1); RED CELL DISTRIBUTION WIDTH 15.2 % (11.7-14.4)
[2019-05-22 04:45] LABS: ANION GAP 12.7 mmol/L (8-16); CALCIUM 8.7 mg/dL (8.4-10.2); CREATININE, SERUM 3.38 mg/dL (0.57-1.11); POTASSIUM 4.7 mmol/L (3.5-5.1)
[2019-05-22] MEDS: SODIUM CHLORIDE 0.9% 1000ML 1,000 ML IV SCH (05:00)
[2019-05-22] MEDS: VANCOMYCIN 1GM/NS 250 ML 250 ML IV SCH (06:30)
--- NOTE | 2019-05-22 06:50 | NUR ---
Report given to morning nurse. Patient lying in bed. Denies pain at this time.
[2019-05-22] MEDS: INSULIN REGULAR, HUMAN 100 UNIT/1 ML 3ML VIAL SQ SCH ×4 (07:30→21:09)
--- NOTE | 2019-05-22 08:46 | Diagnostic Imaging Report ---
EXAMINATION: CHEST SINGLE (PORTABLE) INDICATION: Shortness of breath COMPARISON: Chest radiograph 05/20/2019 FINDINGS: LINES/TUBES:EKG leads overlie the chest. Right IJ central venous catheter terminates in the superior vena cava. LUNGS:The lungs are moderately inflated. There is perihilar fullness and indistinctness of the pulmonary vasculature. PLEURA:No pleural effusion or pneumothorax. MEDIASTINUM:Cardiomediastinal silhouette is stably enlarged. BONES/SOFT TISSUES:No acute osseous injury. ABDOMEN:No free air under the diaphragm. IMPRESSION: Unchanged cardiomegaly and mild pulmonary edema. Signed by: Abdullahi Townsend MD on 05/22/2019 8:42 AM
[2019-05-22] MEDS: FERROUS SULFATE 325 MG TAB PO SCH ×2 (08:47→16:32)
[2019-05-22] MEDS ORDERED: MORPHINE SULFATE 2 MG/ML SYR 1ML IV PRN (09:00)
[2019-05-22] MEDS: VERAPAMIL HCL 120 MG TABSR PO SCH ×2 (09:13→16:32)
[2019-05-22] MEDS: CEFEPIME 1GM/NS 0.9% 50 ML 50 ML IV SCH (09:13)
[2019-05-22] MEDS: FLUOXETINE HCL 10 MG CAP PO SCH (09:15)
[2019-05-22] MEDS: DOCUSATE SODIUM 100 MG CAP PO SCH ×2 (09:15→16:32)
[2019-05-22] MEDS: LIDOCAINE 5% PATCH TP SCH (09:15)
[2019-05-22] MEDS: POLYETHYLENE GLYCOL 3350 17 GM PACK PO SCH ×2 (09:15→16:32)
[2019-05-22] MEDS: FOLIC ACID 1 MG TAB PO SCH (09:15)
[2019-05-22] MEDS: FUROSEMIDE 40 MG TAB PO SCH (09:15)
[2019-05-22] MEDS: DICLOFENAC SOD 1% GEL 100 GM TUBE TP SCH ×4 (09:15→21:09)
[2019-05-22] MEDS: ASCORBIC ACID 500 MG TAB PO SCH ×2 (09:15→16:32)
[2019-05-22] MEDS: CARVEDILOL 12.5 MG TAB PO SCH (09:15)
[2019-05-22] MEDS: CLONIDINE HCL 0.1 MG TAB PO SCH ×3 (09:15→21:09)
[2019-05-22] MEDS: TRAMADOL HCL 50 MG TAB PO PRN (10:39)
--- NOTE | 2019-05-22 11:36 | NUR ---
Received phone call from Alix with [facility], who stated that Dr. Parker, chief hospital administrator for rehab, does not think pt is appropriate for inpatient rehab at this time. CM reached out to [facility] to see if they are in network. Awaiting response.
--- NOTE | 2019-05-22 15:21 | NUR ---
Per Keyla Blanton with [facility], they are not in network with pt's insurance. CM called Janice Cartagena CM with [facility] to discuss options. Left VM for callback. Gave CM's number and office number.
--- NOTE | 2019-05-22 15:23 | Progress Note ---
DATE: 05/22/2019 Nephrology Progress Note SUBJECTIVE: The patient at baseline with no changes. No overnight events. OBJECTIVE: VITAL SIGNS: Temperature is 97.3, pulse 73, respiratory rate 19, blood pressure 142/58, pulse ox 98% on 2 L nasal cannula. GENERAL: No acute distress. Alert and oriented x3. Cooperative on examination. HEENT: Head is normocephalic and atraumatic. Eyes; pupils are equal, round, and reactive to light bilaterally. Extraocular movements are intact. Neck; supple, good range of motion. Throat; no evidence of erythema or exudates in the posterior pharynx. Has poor dentition. PULMONARY: Clear to auscultation bilaterally. No wheezing, rales, or rhonchi, and no crackles appreciated. CARDIOVASCULAR: Positive S1, S2. No murmurs, rubs, or gallops appreciated. ABDOMEN: Soft, nondistended, and nontender to palpation. Bowel sounds present. MUSCULOSKELETAL: Deferred. NEUROLOGIC: Deferred. SKIN: Intact. Warm to touch. Good cap refill. PSYCHIATRIC: Normal affect and mood. EXTREMITIES: No edema. Good range of motion throughout. LABORATORY FINDINGS: Show white count is 10, hemoglobin 7.9, hematocrit is 25, and platelets of 172. Chemistry; sodium 130, potassium 4.0, chloride 96, bicarb 26, anion gap of 12, BUN 60, creatinine is 3.38, prior count 3.37, glucose 141. IMPRESSION: 1. Abdominal wall cellulitis with underlying erythema. 2. Acute kidney injury with worsening renal function, now creatinine is plateaued and flat likely to be secondary to underlying ATN. 3. Hypertension. 4. Uncontrolled type 2 diabetes. PLAN: At this time, her creatinine at [facility] and her PCP was found to be 1.7 back in December of 2018. I think she may have developed either worsening renal function due to her overall comorbidities and also developed an acute kidney injury right now from likely ATN. Currently, her electrolytes are stable. Renal ultrasound was very inconclusive due to her body habitus. At this time, we will continue to monitor renal function and electrolytes. She is stable. No need for any renal replacement therapy at this time. We will continue to monitor very closely. MD VIDAL Thrasher/NOHEMYL /[id number]
--- NOTE | 2019-05-22 15:50 | NUR ---
Called pt's daughter Kaylee Hadley @ [phone] and updated her on status of inpatient rehab referral. Cm asked pt's daughter about her functional status at home. Pt lives with her son and daughter in law. Uses a bedside commode. Has a bathroom in her room about 8 steps from her bed. Gets to the bathroom about 1x / week to shower. Daughter states they use bath wipes during the week for her. Pt mainly stays in bed for most part of the day. Has a provider 4 hrs/day x 5 days/week. CM informed pt's daughter that if pt is not accepted into inpatient rehab, the only other option is home with home health. She stated she will talk to her mom when she gets to the hospital and encourage her to work with therapy. Also stated that if she has to go home with home health, then that's what they'll have to do. Stated pt had home health previously with IV abx at home.
--- NOTE | 2019-05-22 19:20 | NUR ---
Received bedside report from day nurse. Patient resting in bed, no s/s of distress at this time. All safety measures in place. Will continue to monitor.
[2019-05-22] MEDS: ATORVASTATIN 40 MG TAB PO SCH (21:09)
[2019-05-23] VITALS (8 sets, daily range): BP systolic 118–155; BP diastolic 47–63
[2019-05-23] MEDS: ALBUTEROL/IPRATROPIUM 3 ML NEB NEB SCH ×4 (01:11→19:45)
--- NOTE | 2019-05-23 03:25 | NUR ---
Right IJ dressing changed.
[2019-05-23 03:43] LABS: BASOPHILS % 0.3 % (0.0-1.0); EOSINOPHILS # (AUTO) 0.4 (0.0-0.4); EOSINOPHILS % 4.1 % (0.0-6.0); HEMATOCRIT 25.7 % (34.2-44.1); HEMOGLOBIN 7.9 g/dL (12.0-16.0); LYMPHOCYTES # (AUTO) 0.6 (1.0-3.2); LYMPHOCYTES % 6.2 % (18.0-39.1); MEAN CORPUSCULAR HGB CONC 30.7 g/dL (31-35); MEAN CORPUSCULAR VOLUME 87.7 fL (81-99); MONOCYTES % 9.5 % (4.4-11.3); NEUTROPHILS # (AUTO) 8.1 (2.1-6.9); NEUTROPHILS % 79.5 % (38.7-80.0); PLATELET COUNT 189 x10e3/uL (140-360); RED BLOOD COUNT 2.93 x10e6/uL (3.6-5.1); RED CELL DISTRIBUTION WIDTH 15.1 % (11.7-14.4)
[2019-05-23 03:51] LABS: ANION GAP 12.7 mmol/L (8-16); CREATININE, SERUM 2.88 mg/dL (0.57-1.11); POTASSIUM 4.7 mmol/L (3.5-5.1)
--- NOTE | 2019-05-23 04:21 | Consultation ---
DATE OF CONSULTATION: 05/21/2019 CHIEF COMPLAINT: Left shoulder pain and bilateral knee pain. HISTORY OF PRESENT ILLNESS: This patient is a 63-year-old female with a significant history of uncontrolled type 2 diabetes and morbid obesity, who is admitted for abdominal cellulitis. She states she has had longstanding pain in both the left shoulder and both knees. She states she initially had an injury to her left shoulder 4 years ago. She states the pain has intensified in the past several weeks. She states she has difficulty moving the arm without pain. The patient states she also has worsening long-standing pain in both knees. She states the pain makes it difficult to walk. She states at home that she typically gets around with a walker. She states she can only walk short distances. She states she does not get out of her house much and when she does, she uses the mobility scooter at the local grocery store to get around. PAST MEDICAL HISTORY: See H and P. ALLERGIES: NO KNOWN DRUG ALLERGIES. MEDICATIONS: See MAR. SOCIAL HISTORY: The patient denies EtOH use or smoking. PHYSICAL EXAMINATION: GENERAL: This is an extremely morbidly obese female with a BMI of over 78. She does not appear to be in any apparent distress. She is awake, alert, and oriented appropriately. MUSCULOSKELETAL: Gross inspection of her left shoulder does not show any apparent swelling, anterior fullness, or posterior fullness. Musculature and bony landmarks are obscured secondary to body habitus. Active range of motion is limited and shows roughly 90 degrees of forward elevation, abduction, external rotation to 40 degrees and internal rotation to PSIS. She guards against passive forward elevation past 150 degrees. Impingement signs are markedly positive. Further examination is compromised secondary to her pain. Gross inspection of both knees shows large amount of adipose tissue with pannus overlying both knees and the bony landmarks are obscured secondary to her body habitus. Attempts at passive range of motion in both knees elicits significant pain. Range of motion in the right knee is painful and from 0 degrees to 80 degrees of flexion. Range of motion in the left knee is from 0 degrees to 90 degrees of flexion. Both knees appear grossly stable. IMAGING DATA: X-rays of the left knee were reviewed. There are no images of the right knee, but images of the left knee show advanced tricompartmental osteoarthritis. Imaging of the left shoulder shows no acute bony abnormalities. The radiologist is suggesting there is an inferior subluxation of the shoulder. This is difficult to assess given poor positioning in the x-ray. ASSESSMENT AND PLAN: This is a 63-year-old female with osteoarthritis in the left knee, though there are no x-rays of the right knee. She likely has advanced osteoarthritis in the right knee as well. She also has some arthritic changes in her left shoulder with suggestion of some subluxation of glenohumeral joint. The findings were discussed with the patient. The limited options given her extreme morbid obesity were discussed. She is not a candidate for anything surgical given her multiple comorbidities. I would recommend mobilizing her with physical therapy to tolerance. She can work on shoulder stabilization exercises with physical therapy. She is already on [facility]. They are being careful with NSAIDs given her chronic kidney issues. She could potentially use topical anti-inflammatories instead. No further orthopedic intervention at this time is needed. She is welcome to follow up with us on an as-needed basis. Thank you for the consultation. Dictated by Alcon Douglas PA-C MD SHAQUILLE Shankar/FRANCESCA /[id number]
[2019-05-23] MEDS: VANCOMYCIN 1GM/NS 250 ML 250 ML IV SCH (06:04)
--- NOTE | 2019-05-23 07:00 | NUR ---
RCD PT AT BED PT IS ALERT AND ORIENTED PT RESTING ON BED NO SIGNS OF ANY DISTRESS NOTED IV PATENT BED LOW AND LOCKED CALL LIGHT IN REACH
[2019-05-23] MEDS: INSULIN REGULAR, HUMAN 100 UNIT/1 ML 3ML VIAL SQ SCH ×4 (07:30→21:00)
[2019-05-23] MEDS: FERROUS SULFATE 325 MG TAB PO SCH ×2 (08:00→17:00)
[2019-05-23] MEDS: FOLIC ACID 1 MG TAB PO SCH (09:00)
[2019-05-23] MEDS: ASCORBIC ACID 500 MG TAB PO SCH ×2 (09:00→17:00)
[2019-05-23] MEDS: DOCUSATE SODIUM 100 MG CAP PO SCH ×2 (09:00→17:00)
[2019-05-23] MEDS: LIDOCAINE 5% PATCH TP SCH (09:00)
[2019-05-23] MEDS: DICLOFENAC SOD 1% GEL 100 GM TUBE TP SCH ×4 (09:00→21:12)
[2019-05-23] MEDS: FLUOXETINE HCL 10 MG CAP PO SCH (09:00)
[2019-05-23] MEDS: CLONIDINE HCL 0.1 MG TAB PO SCH ×3 (09:00→21:11)
[2019-05-23] MEDS: FUROSEMIDE INJ 10 MG/ML 4 ML VIAL IV SCH (09:00)
[2019-05-23] MEDS: POLYETHYLENE GLYCOL 3350 17 GM PACK PO SCH ×2 (09:00→17:00)
[2019-05-23] MEDS: CEFEPIME 1GM/NS 0.9% 50 ML 50 ML IV SCH (09:00)
[2019-05-23] MEDS: CARVEDILOL 12.5 MG TAB PO SCH (09:00)
[2019-05-23] MEDS: HYDROMORPHONE 1MG/1ML INJ IV PRN ×3 (09:05→18:49)
[2019-05-23] MEDS: VERAPAMIL HCL 120 MG TABSR PO SCH ×2 (09:10→17:00)
--- NOTE | 2019-05-23 12:43 | NUR ---
CM CALLED AND SPOKE WITH DC SENIOR COMMUNICATIONS SPECIALIST AT [facility] GORDON RUBIO PH: [phone] REQUESTED ASSISTANCE WITH DC PLAN ON THIS PT GORDON STATES PT DOES HAVE ACUTE REHAB BENEFITS AND RECOMMENDS WE TRY [facility] (SINCE [facility] DENIED AND [facility] OUT OF NETWORK) FAXED FACE SHEET TO INTAKE AT [facility]- [phone] CONFIRMATION REC'D AWAIT ANSWER FROM [facility] BACK UP PLAN PER GORDON IS [facility] PENDING
--- NOTE | 2019-05-23 13:45 | Progress Note ---
DATE: 05/23/2019 Nephrology Progress Note SUBJECTIVE: The patient is doing much better today with no complaints. Creatinine has downtrended now from yesterday. PHYSICAL EXAMINATION: VITAL SIGNS: Temperature is 97.4, pulse 73, respiratory rate of 19, blood pressure 118/48, pulse ox 94% on room air. GENERAL: Not in acute distress. Alert and oriented x3. Cooperative on examination. HEENT: Head is normocephalic and atraumatic. Eyes; pupils are equal, round, and reactive to light bilaterally. Extraocular movements are intact bilaterally. Throat; no evidence of erythema or exudates in the posterior pharynx. Has poor dentition. NECK: Supple. Good range of motion. PULMONARY: Clear to auscultation bilaterally. No wheezing, rales, or rhonchi. No crackles appreciated. CARDIOVASCULAR: Positive S1, S2. No murmurs, rubs, or gallops appreciated. ABDOMEN: Soft, nondistended, and nontender to palpation. Bowel sounds present. MUSCULOSKELETAL: Strength is 5/5 throughout. No evidence of any muscle deficits on examination. No weakness appreciated. NEUROLOGIC: Cranial nerve 2 through 12 grossly intact. No evidence of any neurological deficits on exam. SKIN: Intact. Warm to touch. Good cap refill. PSYCHIATRIC: Normal affect and mood. EXTREMITIES: No edema. Good range of motion throughout. LABORATORY DATA: Laboratory findings show white count 10.3, hemoglobin 7.9, hematocrit 25, and platelets of 189. Chemistries were reviewed, creatinine downtrended from 3.38 to 2.88, BUN 58 downtrending. Sodium 131, potassium 4.7, chloride 98, bicarb 25, anion gap of 12. IMPRESSION: 1. Abdominal wall cellulitis with underlying erythema. 2. Acute kidney injury with worsening renal function, now creatinine is down trending, likely secondary to underlying ATN. 3. Hypertension. 4. Uncontrolled type 2 diabetes. PLAN: At this time, her creatinine is down trending. Her baseline creatinine was around 1.7 back in December 2018. We will continue to monitor the creatinine levels on a daily basis. Electrolytes are stable. No need for any replacement at this time. Continue with IV antibiotics. Avoid nephrotoxic agents and renally dose all medications. MD VIDAL Thrasher/NOHEMYL /[id number]
[2019-05-23] MEDS ORDERED: FUROSEMIDE INJ 10 MG/ML 4 ML VIAL IV ONE (17:00)
--- NOTE | 2019-05-23 18:46 | NUR ---
PT RESTING ON BED BED SIDE REPORT GIVEN TO ONCOMING NURSE
[2019-05-23] MEDS: ATORVASTATIN 40 MG TAB PO SCH (21:11)
[2019-05-23] MEDS: ACETAMINOPHEN 325 MG TAB PO PRN (21:12)
[2019-05-24] MEDS: ALBUTEROL/IPRATROPIUM 3 ML NEB NEB SCH ×4 (01:20→19:11)
[2019-05-24 04:20] VITALS: BP 157/71
[2019-05-24 05:24] LABS: BASOPHILS % 0.4 % (0.0-1.0); EOSINOPHILS # (AUTO) 0.5 (0.0-0.4); EOSINOPHILS % 6.3 % (0.0-6.0); HEMATOCRIT 26.4 % (34.2-44.1); HEMOGLOBIN 7.9 g/dL (12.0-16.0); LYMPHOCYTES # (AUTO) 0.6 (1.0-3.2); LYMPHOCYTES % 8.1 % (18.0-39.1); MEAN CORPUSCULAR HEMOGLOBIN 26.7 pg (28-32); MEAN CORPUSCULAR HGB CONC 29.9 g/dL (31-35); MEAN CORPUSCULAR VOLUME 89.2 fL (81-99); MONOCYTES # (AUTO) 0.8 (0.2-0.8); NEUTROPHILS # (AUTO) 5.8 (2.1-6.9); NEUTROPHILS % 74.9 % (38.7-80.0); PLATELET COUNT 193 x10e3/uL (140-360); RED BLOOD COUNT 2.96 x10e6/uL (3.6-5.1)
[2019-05-24 05:35] LABS: ANION GAP 13.4 mmol/L (8-16); CALCIUM 9.7 mg/dL (8.4-10.2); CREATININE, SERUM 2.38 mg/dL (0.57-1.11); POTASSIUM 4.4 mmol/L (3.5-5.1)
[2019-05-24] MEDS: VANCOMYCIN 1GM/NS 250 ML 250 ML IV SCH (06:30)
--- NOTE | 2019-05-24 07:10 | NUR ---
RCD PT AT BED PT IS ALERT AND ORIENTED RESTING ON BED NO SIGNS OF ANY DISTRESS NOTED IV PATENT BED LOW AND LOCKED CALL LIGHT IN REACH
[2019-05-24] MEDS: INSULIN REGULAR, HUMAN 100 UNIT/1 ML 3ML VIAL SQ SCH ×4 (07:30→21:30)
[2019-05-24 07:51] VITALS: BP 164/64
[2019-05-24 08:00] VITALS: BP 164/64
[2019-05-24] MEDS: FERROUS SULFATE 325 MG TAB PO SCH ×2 (08:00→16:52)
[2019-05-24] MEDS ORDERED: BISACODYL 5 MG TAB EC PO ONE (08:15)
[2019-05-24] MEDS: FUROSEMIDE INJ 10 MG/ML 4 ML VIAL IV SCH (09:00)
[2019-05-24] MEDS: FLUOXETINE HCL 10 MG CAP PO SCH (09:00)
[2019-05-24] MEDS: DICLOFENAC SOD 1% GEL 100 GM TUBE TP SCH ×4 (09:00→21:26)
[2019-05-24] MEDS: CARVEDILOL 12.5 MG TAB PO SCH (09:00)
[2019-05-24] MEDS: VERAPAMIL HCL 120 MG TABSR PO SCH ×2 (09:00→16:52)
[2019-05-24] MEDS: POLYETHYLENE GLYCOL 3350 17 GM PACK PO SCH ×2 (09:00→16:53)
[2019-05-24] MEDS: LIDOCAINE 5% PATCH TP SCH (09:00)
[2019-05-24] MEDS: ASCORBIC ACID 500 MG TAB PO SCH ×2 (09:00→16:53)
[2019-05-24] MEDS: GUAIFENESIN 600MG/DEXTROMETHORPHAN 30MG TABSR PO SCH ×2 (09:00→21:26)
[2019-05-24] MEDS: CEFEPIME 1GM/NS 0.9% 50 ML 50 ML IV SCH (09:00)
[2019-05-24] MEDS: DOCUSATE SODIUM 100 MG CAP PO SCH ×2 (09:00→16:52)
[2019-05-24] MEDS: CLONIDINE HCL 0.1 MG TAB PO SCH ×3 (09:00→21:26)
[2019-05-24] MEDS: FOLIC ACID 1 MG TAB PO SCH (09:00)
[2019-05-24] MEDS: HYDROMORPHONE 1MG/1ML INJ IV PRN ×3 (09:30→16:50)
[2019-05-24 11:56] VITALS: BP 152/54
--- NOTE | 2019-05-24 13:14 | NUR ---
Nutrition Screen Note RD Recommendation for Physician(05/24): -Continue with current diet as ordered (1800 ADA and renal) Plan of Care: RD following, monitoring for tolerance and adequacy Nutrition reason for involvement: Follow up Primary Diagnose(s): Abdominal wall cellulitis PMH: Diabetes Type 2, HTN- per pt Ht: 62in Wt: 427lbs BMI: 78.2kg/m2 IBW:110lbs +/- 10% RD Assessment: 05/24: Follow up: Pt was seen resting in bed with nurse and SILK CREPE MACHINE OPERATOR at bedside. SILK CREPE MACHINE OPERATOR helped translate for the pt. Pt reported her appetite was somewhat poor and that she likes consuming hot foods such as tea. Per IM note- creat is trending down and lytes have been stable. No meal percentages were recorded within EMR. LBM: not recorded. POC GM: 171. Will continue to monitor. (05/18) Chart reviewed. Labs and meds reviewed. 63 y/o Bhutanese-speaking F complaining of abdominal pain during time of visit. Pt daughter at bedside and able to provide additional nutrition related hx for patient. Patient reports fair intake and appetite during admission, eating better at home. PTC showed 100% meal consumption. Reported stable weight and denied any significant recent weight changes. Denied any ongoing N/V/D/C or difficulties with chewing/swallowing. Will continue to monitor and follow as needed. Current Diet: renal and ADA diet Malnutrition Evaluation (05/18) The patient does not meet criteria for a specified degree of malnutrition at this time. Will re-evaluate at follow-up as appropriate. Diet Education Needs Assessment: Diet education not indicated. Nutrition Care Level: LOW Signed: Beckie Green, CLARISSE, LD
--- NOTE | 2019-05-24 14:22 | NUR ---
GHAZALA spoke with Dr. Ragsdale, who states pt can go home with oral antibiotics. Pt also refusing to work with therapy, has been denied inpatient rehab. Received order to set up home health and DMEs for discharge from [facility]. Called and spoke with pt's son Sal Hadley. Pt lives with him and his . He states prior to hospitalization, pt would get up out of bed using her walker. Would be able to walk max 10-15 ft before having to sit down to rest. States they used a wheelchair to go long distances. States wheelchair and BSC that they have does not fit pt. Would appreciate if we could order her one that fits. Pt's son is her paid provider. Son or daughter in law is at home with pt at all times. Informed him of pt's refusal to work with therapy. States he's not surprised. Informed him that pt has been denied inpatient rehab because she does not meet criteria. Pt's son states he will take pt home. Not sure if she would allow anyone into the home for home health since she does not like strangers in her house. He spoke with his mom regarding home health and stated that she's refusing so states he will just take her home and he will take care of her. Received choice for [facility] for DME. Choice letter placed in chart. Informed son that DME will be delivered to the house once approved by insurance. Order faxed to [facility] at [phone]. Young Piña, with [facility] notified of referral.
--- NOTE | 2019-05-24 15:21 | Progress Note ---
DATE: 05/24/2019 Nephrology Progress Note SUBJECTIVE: The patient is doing much better today with no complaints. Creatinine is improving. I used a heavy machinery assembler to discuss this with the patient. She verbalized understanding. PHYSICAL EXAMINATION: VITAL SIGNS: Temperature 97.9, pulse 74, respiratory rate 17, blood pressure 152/54, and pulse ox 95% on room air. GENERAL: No acute distress. Alert and oriented x3. Cooperative on examination. HEENT: Head is normocephalic and atraumatic. Eyes, pupils are equal, round, and reactive to light bilaterally. Extraocular movements are intact. Throat, no evidence of erythema or exudates in the posterior pharynx. Has poor dentition. NECK: Supple. Good range of motion. PULMONARY: Clear to auscultation bilaterally. No wheezing, rales, rhonchi, or crackles appreciated. CARDIOVASCULAR: Positive S1 and S2. No murmurs, rubs, or gallops appreciated. ABDOMEN: Soft, nondistended, and nontender to palpation. Bowel sounds present. MUSCULOSKELETAL: Strength is 5/5 throughout. No evidence of any muscle deficits on examination. No weakness appreciated. NEUROLOGIC: Cranial nerves II through XII grossly intact. No evidence of any neurological deficits on exam. SKIN: Intact. Warm to touch. Good cap refill. PSYCHIATRIC: Normal affect and mood. EXTREMITIES: No edema. Good range of motion throughout. LABORATORY FINDINGS: Show white count 7.6, hemoglobin 7.9, hematocrit 26, and platelets of 193. Chemistry; sodium 136, potassium 4.4, chloride 100, bicarb 27, anion gap of 13, BUN 56, creatinine downtrended to 2.38, and calcium is 9.7. IMPRESSION: 1. Abdominal wall cellulitis with underlying erythema. 2. Acute kidney injury secondary to acute tubular necrosis, now downtrending and improving. 3. Hypertension. 4. Uncontrolled type 2 diabetes. PLAN: At this time, creatinine is improved tremendously and downtrending. Electrolytes are stable. Her normal creatinine is around 1.7 and she is 2.3. Avoid nephrotoxic agents. Continue with IV antibiotics per primary team. We will continue to follow with the primary team. MD VIDAL Thrasher/MODMera /[id number]
[2019-05-24] MEDS ORDERED: FUROSEMIDE INJ 10 MG/ML 4 ML VIAL IV ONE (16:00)
[2019-05-24 17:18] VITALS: BP 176/63
--- NOTE | 2019-05-24 18:42 | NUR ---
PT RESTING ON BED BED SIDE REPORT GIVEN TO ONCOMING NURSE
[2019-05-24] MEDS: ATORVASTATIN 40 MG TAB PO SCH (21:26)
[2019-05-24 22:00] VITALS: BP 177/75
[2019-05-25 00:19] VITALS: BP 160/70
[2019-05-25] MEDS: HYDROMORPHONE 1MG/1ML INJ IV PRN ×2 (01:06→11:30)
[2019-05-25] MEDS: ALBUTEROL/IPRATROPIUM 3 ML NEB NEB SCH ×3 (01:23→13:15)
[2019-05-25 03:11] LABS: BASOPHILS # (AUTO) 0.1 (0.0-0.1); BASOPHILS % 0.7 % (0.0-1.0); EOSINOPHILS # (AUTO) 0.4 (0.0-0.4); EOSINOPHILS % 5.5 % (0.0-6.0); HEMATOCRIT 27.5 % (34.2-44.1); HEMOGLOBIN 8.5 g/dL (12.0-16.0); LYMPHOCYTES # (AUTO) 0.7 (1.0-3.2); MEAN CORPUSCULAR HEMOGLOBIN 27.3 pg (28-32); MEAN CORPUSCULAR HGB CONC 30.9 g/dL (31-35); MEAN CORPUSCULAR VOLUME 88.4 fL (81-99); MONOCYTES # (AUTO) 0.8 (0.2-0.8); NEUTROPHILS # (AUTO) 4.8 (2.1-6.9); NEUTROPHILS % 71.5 % (38.7-80.0); PLATELET COUNT 187 x10e3/uL (140-360); RED BLOOD COUNT 3.11 x10e6/uL (3.6-5.1); RED CELL DISTRIBUTION WIDTH 14.9 % (11.7-14.4)
[2019-05-25 03:23] LABS: ANION GAP 14.6 mmol/L (8-16); CALCIUM 10.2 mg/dL (8.4-10.2); CREATININE, SERUM 1.98 mg/dL (0.57-1.11); POTASSIUM 4.6 mmol/L (3.5-5.1)
[2019-05-25 05:59] VITALS: BP 181/73
[2019-05-25] MEDS: VANCOMYCIN 1GM/NS 250 ML 250 ML IV SCH (06:24)
[2019-05-25] MEDS: INSULIN REGULAR, HUMAN 100 UNIT/1 ML 3ML VIAL SQ SCH ×2 (07:30→11:30)
--- NOTE | 2019-05-25 07:45 | NUR ---
Patient assisted to bed side commode with 2 assist with difficulty but safety maintained. Tolerated meds, assisted back to bed, will monitor.
[2019-05-25] MEDS: FERROUS SULFATE 325 MG TAB PO SCH (08:00)
[2019-05-25] MEDS ORDERED: VOLTAREN100 GM TP (08:10)
[2019-05-25] MEDS ORDERED: AMLODIPINE BESY10 MG PO (08:10)
[2019-05-25] MEDS ORDERED: DOXYCYCLINE HY100 MG PO (08:10)
[2019-05-25] MEDS ORDERED: TYLENOL WITH C1 EACH PO (08:10)
--- NOTE | 2019-05-25 09:16 | NUR ---
GARY Bob started on process for ambulance authorization yesterday. GHAZALA called and spoke to John Paulphan Vicki ([phone]) with [facility] and informed her that preauth forms has been signed by Dr. Oneill and faxed to [facility] at [phone]. She asked CM to send confirmation of fax to [facility] and they will be able to start process of obtaining auth. States could take up to 72 hrs, especially since it's the weekend. Requested information faxed to Janet at [phone]. States that if we need ambulance transport, we can go ahead and call [facility] to set it up since she is already aware of the case. No Auth # available, since it has not been obtained. States [facility] will have pt sign form that she will be responsible for cost if auth not given. GHAZALA called pt's son and informed him of discharge order. He states her mattress has been delivered and is set up. Address she will be going to ([id number], [place] [address]) has been remodelled to be accessible for wheelchair access. He is on his way to the hospital now. States he wants to try to see if he can transport his mom home himself. GHAZALA informed him that pt may need to be transported home via ambulance for safety. He verbalized understanding and states he will talk to his mom and bedside RN when he gets to the hospital. RED Springer was informed of above.
[2019-05-25] MEDS: FUROSEMIDE INJ 10 MG/ML 4 ML VIAL IV SCH (09:43)
[2019-05-25] MEDS: CARVEDILOL 12.5 MG TAB PO SCH (09:44)
[2019-05-25] MEDS: LIDOCAINE 5% PATCH TP SCH (09:44)
[2019-05-25] MEDS: GUAIFENESIN 600MG/DEXTROMETHORPHAN 30MG TABSR PO SCH (09:44)
[2019-05-25] MEDS: DOCUSATE SODIUM 100 MG CAP PO SCH (09:44)
[2019-05-25] MEDS: FLUOXETINE HCL 10 MG CAP PO SCH (09:44)
[2019-05-25] MEDS: CLONIDINE HCL 0.1 MG TAB PO SCH (09:44)
[2019-05-25] MEDS: POLYETHYLENE GLYCOL 3350 17 GM PACK PO SCH (09:44)
[2019-05-25] MEDS: DICLOFENAC SOD 1% GEL 100 GM TUBE TP SCH (09:44)
[2019-05-25] MEDS: ASCORBIC ACID 500 MG TAB PO SCH (09:44)
[2019-05-25] MEDS: CEFEPIME 1GM/NS 0.9% 50 ML 50 ML IV SCH (09:44)
[2019-05-25] MEDS: VERAPAMIL HCL 120 MG TABSR PO SCH (09:44)
[2019-05-25] MEDS: FOLIC ACID 1 MG TAB PO SCH (09:44)
[2019-05-25 10:07] VITALS: BP 190/79
--- NOTE | 2019-05-25 10:55 | NUR ---
Son refused to use ambulance for transportation to home and wants to use his care. Notified IVELISSE Root and stated ok , will d/c central line
[2019-05-25 11:10] VITALS: BP 190/79
[2019-05-25 12:47] VITALS: BP 202/81
[2019-05-25] MEDS ORDERED: CLONIDINE HCL 0.1 MG TAB PO SCH (15:00)
--- NOTE | 2019-05-25 15:51 | Progress Note ---
DATE: 05/25/2019 Nephrology Progress Note SUBJECTIVE: The patient is doing well today with no complaints. PHYSICAL EXAMINATION: VITAL SIGNS: Temperature 98.1, pulse 74, respiratory rate is 22, blood pressure is 202/81, and pulse ox 97% on room air. GENERAL: Not in acute distress. Alert and oriented x3. Cooperative on examination. HEENT: Head; normocephalic, atraumatic. Eyes; pupils are equal, round, and reactive to light bilaterally. Extraocular movements intact bilaterally. Throat; no evidence of erythema or exudates in the posterior pharynx. Has poor dentition. NECK: Supple. Good range of motion. PULMONARY: Clear to auscultation bilaterally. No wheezing, no rales, no rhonchi, no crackles appreciated. CARDIOVASCULAR: Positive S1 and S2. No murmurs, rubs, or gallops appreciated. ABDOMEN: Soft, nondistended, and nontender to palpation. Bowel sounds present. MUSCULOSKELETAL: Strength is 5/5 throughout. No evidence of any muscle deficits on examination. No weakness appreciated. NEUROLOGIC: Cranial nerves II through XII grossly intact. No evidence of any neurological deficits on exam. SKIN: Intact. Warm to touch. Good cap refill. PSYCHIATRIC: Normal affect and mood. EXTREMITIES: No edema. Good range of motion throughout. LABORATORY FINDINGS: Show white count 6.7, hemoglobin 8.5, hematocrit is 27, and platelets of 187. Chemistry; sodium 138, potassium 4.6, chloride 99, bicarb 29, anion gap of 14, BUN is 50 down trending from 56, creatinine is 1.98 down trending from 2.38 from a peak of 3.3, and glucose 176. MICROBIOLOGY: None. IMAGING STUDIES: None. IMPRESSION: 1. Abdominal wall cellulitis with underlying erythema. 2. Acute kidney injury secondary to acute tubular necrosis, now down trending. 3. Hypertension. 4. Uncontrolled type 2 diabetes. PLAN: At this time, creatinine is down trending improving to 1.98 close to her baseline. Electrolytes are stable. We will continue with same plan of care with IV Lasix. As her blood pressure is extremely high, she is on clonidine 0.1 mg t.i.d. as well as Coreg 12.5 mg b.i.d. At this time, I do not want to add any more other medications to her list. I will go ahead and just increase the clonidine to 0.2 mg p.o. t.i.d. and see how her blood pressure is. We will get a.m. labs and monitor closely. MD VIDAL Thrasher/FRANCESCA /[id number]
--- NOTE | 2019-05-27 21:46 | Discharge Summary ---
ADMISSION DIAGNOSES: Status post fall, abdominal wall cellulitis, failed outpatient treatment, chronic kidney disease 3, hypertension with chronic kidney disease 3, neuropathy, depression, anxiety, type 2 diabetes with chronic kidney disease 3, hyperlipidemia, super morbid obesity with a BMI of 78. DISCHARGE DIAGNOSES: Status post fall, abdominal wall cellulitis, failed outpatient treatment, chronic kidney disease 3, hypertension with chronic kidney disease 3, neuropathy, depression, anxiety, type 2 diabetes with chronic kidney disease 3, hyperlipidemia, super morbid obesity with a BMI of 78, osteoarthritis. HISTORY: Hypertension, hyperlipidemia, depression, anxiety, type 2 diabetes, arthritis, neuropathy. SURGICAL HISTORY: Hysterectomy, cholecystectomy, left arm surgery, three back surgeries, appendectomy, oophorectomy. FAMILY HISTORY: Noncontributory. SOCIAL HISTORY: Noncontributory. HOSPITAL COURSE: A 63-year-old female admitted status post fall. She says she fell last night after walking into something. She was unable to get up, so EMS had to help her up 2 hours later. She is a very poor historian and does not remember what part of her body she hit. She also complains of lower abdominal pain and redness that continued to worsen. She is unable to tell me when it started or what antibiotic she has taken, although she is taking multiple antibiotics outpatient. On admission, left knee x-ray showed no acute displaced fracture, lateral tibial plateau not well visualized, and a small nondisplaced fracture cannot be excluded. CT of the abdomen and pelvis was done that showed extensive cellulitis of the right gluteal subcutaneous fat without abscess or fluid collection. The patient then had a left shoulder x-ray, that showed moderate acromioclavicular osteoarthritis. A 3-view x-ray was ordered, but due to the patient's body habitus 3-view could not be done nor could a CT of the spine. Her kidneys continued to worsen, so renal ultrasound was done that was extremely limited due to the body habitus. Right kidney not visualized. No renal calculi or hydronephrosis on the left. The patient had a nontunneled catheter placed for possible long-term antibiotics. The patient was started on vancomycin and Zosyn and ID was consulted. Shoulder x-ray showed inferior subluxation of the left humeral head. Ortho was then consulted, who only recommended Voltaren cream due to the patient's renal disease. The patient began wheezing, so chest x-ray was done which was negative, but did show mild pulmonary edema. She was started on Lasix IV. Due to pain, the patient was not working well with physical therapy, although the pain medicines were increased multiple times. She continued to refuse to do much and then at one point, refused to do anything. She does not have nursing home benefits and due to her refusal working with physical therapy, she cannot go to inpatient rehab. We attempted to setup PT at home, but the patient is refusing that as well. Per family's report, the patient does not walk much in the first place less than 10 steps and in any direction and uses a walker, so the patient will discharge home with family with pain medicine and wheelchair and bedside commode. The patient and family understand discharge instructions and agree to plan. Vital signs stable, the patient afebrile. Dictated by Ivett Jones NP MD NEGIN Ordaz/MODMera /[id number]
== END 2019-05-25 13:15 | disposition home or self-care (01) | DRG 602 ==
LOC: FSED 19:24 → ERHOLD 21:15 → MED/SURG2 23:01
PROVIDERS: ADMIT Internal Medicine; ATTEND Internal Medicine
PROC: 02HV33Z Insertion of Infusion Device into Superior Vena Cava, Percutaneous Approach (ICD-10-PCS; principal; 2019-05-17)
DX: L03.311 Cellulitis of abdominal wall (principal); N17.0 Acute kidney failure with tubular necrosis; J80 Acute respiratory distress syndrome; E87.1 Hypo-osmolality and hyponatremia; I13.0 Hypertensive heart and chronic kidney disease with heart failure and stage 1 through stage 4 chronic kidney disease, or unspecified chronic kidney disease; Z68.45 Body mass index [BMI] 70 or greater, adult; I50.22 Chronic systolic (congestive) heart failure; L03.317 Cellulitis of buttock; E11.65 Type 2 diabetes mellitus with hyperglycemia; Z79.4 Long term (current) use of insulin; E11.22 Type 2 diabetes mellitus with diabetic chronic kidney disease; D64.9 Anemia, unspecified; E66.01 Morbid (severe) obesity due to excess calories; G47.33 Obstructive sleep apnea (adult) (pediatric); W19.XXXA Unspecified fall, initial encounter; N18.3 Chronic kidney disease, stage 3 (moderate); E11.40 Type 2 diabetes mellitus with diabetic neuropathy, unspecified; Z53.29 Procedure and treatment not carried out because of patient's decision for other reasons; G89.29 Other chronic pain; S43.002A Unspecified subluxation of left shoulder joint, initial encounter; M17.0 Bilateral primary osteoarthritis of knee
CPT/HCPCS: 36415; 36556; 71045; 73020; 74176; 74470; 76770; 76937; 80048; 80053; 80061; 80202; 81001; 81015; 82570; 82607; 82728; 82746; 82948; 83036; 83540; 83690; 83880; 83970; 84100; 84156; 84300; 84443; 84466; 85025; 85610; 87086; 93306; 94640; 97139; 99284; C1751; J0360; J0692; J1170; J1817; J1940; J2060; J2270; J2543; J3370; J7030

== ENCOUNTER 2020-01-09 14:12 | Inpatient (IN) | payer OTHER ==
[~2020-01-09] VITALS: Ht 160 cm; Wt 197.7 kg
[~2020-01-09 14:12] MED LIST: AMLODIPINE BESY10 MG PO; ATORVASTATIN CA20 MG PO; BACTRIM DS TAB1 EACH PO; CARVEDILOL12.5 MG PO; CIPRO500 MG PO; CLONIDINE HCL0.1 MG PO; DOXYCYCLINE HY100 MG PO; FLUOXETINE HCL10 MG PO; FUROSEMIDE40 MG PO; GABAPENTIN300 MG PO; HUMALOG MI100 UNITS/ SC; LISINOPRIL10 MG PO; TRAZODONE HCL50 MG PO; TYLENOL WITH C1 EACH PO; ULTRAM 50MG50 MG PO; VERAPAMIL ER120 MG; VOLTAREN100 GM TP
--- OUTSIDE RECORDS SUMMARY | 2020-01-09 14:14 | XMS REPORT | Clinical Summary ---
Author Author [facility] Organization [facility] Address Unknown Phone Unavailable Care Team Providers Care Looper Fixer Name Role Phone PCP Unavailable Allergies Comments Active Allergy Reactions Severity Noted Date Aspirin Itching 08/15/2013 Medications End Date Status Medication Sig Dispensed Refills Start Date Active naproxen (NAPROSYN) 500 Take 1 tablet 60 tablet 3 mg tabletIndications: OA by mouth 2 4 (osteoarthritis) times daily as needed ((for milder pain)). Active INSULIN SYRINGE Use to 1 Box 11 1mL/30GX5/16" (INSULIN administer 4 SYRINGE) insulin twice syringe-needleIndications daily. . : Diabetes mellitus YAKUT LABEL.. Active traZODone (DESYREL) 50 mg Take 1 tablet 30 tablet 1 tabletIndications: by mouth 4 Depression every evening (schedule appointment). YAKUT LABEL.. Active furosemide (LASIX) 40 mg 0 tablet 7 Active INSULIN SYRINGE 0.5mL Use to inject 3 Box 11 30GX5/16" (ULTRA COMFORT) medication 2 7 syringe-needle times daily. Use a new syringe each time. Active nitroGLYCERIN (NITROSTAT) Dissolve 1 100 tablet 3 0.4 mg sublingual tablet under 8 tabletIndications: Stable the tongue angina every 5 minutes as needed, up to 3 times. If chest pain persists, call 911. Active FLUOXETINE HCL 10 mg Take 20 mg by 0 tablet mouth daily. Active acetaminophen (TYLENOL) Take 1 tablet 30 tablet 0 500 mg tabletIndications: by mouth 8 OA (osteoarthritis) every 8 hours as needed for Pain. Active carvedilol (COREG) 12.5 Take 1 tablet 60 tablet 2 mg tabletIndications: by mouth 8 Essential hypertension every 12 hours. Active insulin 70/30 NPH - 10 units 3 Month 0 REGULAR (HUMULIN 70/30, subcutaneous Supply 8 NOVOLIN 70/30) 100 every 12 unit/mL hours. injectionIndications: Type 2 diabetes mellitus with other specified complication, with long-term current use of insulin Active Problems Problem Noted Date Nausea & vomiting 01/12/2018 Fall 01/10/2018 Urinary tract infection 01/10/2018 Acute pyelonephritis 01/10/2018 Disorientation 01/09/2018 Constipation 08/20/2013 OA (osteoarthritis) 08/20/2013 Diabetes mellitus 08/20/2013 Depression 08/20/2013 HTN (hypertension) 08/20/2013 PNA (pneumonia) 08/20/2013 Cough 08/16/2013 Lower extremity pain, bilateral 08/16/2013 Fever 08/16/2013 Renal insufficiency 08/16/2013 Abdominal wall cellulitis Type 2 diabetes mellitus with stage 2 c hronic kidney disease, without long-term current use of insulin Morbid obesity with alveolar hypoventil ation Essential hypertension Abnormal stress test Pleuritic chest pain Chronic midline low back pain Acute midline thoracic back pain KIM (acute kidney injury) Immunizations Name Administration Dates Next Due Influenza Vac (Fluarix) 08/16/2013 Influenza Vaccine, 06/27/2017 Seasonal, Injectable PPV 23 Pneumococcal 08/16/2013 Polysaccaride Family History Medical History Relation Name Comments Diabetes Father Heart Father [place] Hypertension Father Arthritis Mother Diabetes Mother Heart Mother Hypertension Mother Hypertension Sister Relation Name Status Comments Father Mother Sister Social History Date Tobacco Use Types Packs/Day Years Used Never Smoker Drinks/Week oz/Week Comments Alcohol Use No Food Insecurity Answer Date Recorded Within the past 12 months, you worried that your Never tj e 04/21/2017 food would run out before you got money to buy more. Within the past 12 months, the food you bought Never true 04/21/2017 just didn't last and you didn't have mo armando to get more. Sex Assigned at Date Recorded Not on file Industry Job Start Date Occupation Not on file Not on file Not on file Travel End Travel History Travel Start No recent travel history available. Last Filed Vital Signs Not on file Plan of Treatment Health Maintenance Due Date Last Done Comments DM Foot Exam (Yearly) 1971 DM Retinal Exam (Yearly) 1971 Breast Cancer Scrn 1993 (Yearly) Colorectal Cancer Scrn 04/26/2018 04/26/2017 Annual (FIT/FOBT) Age 50 to 75 IMM Pneumococcal Age 65 2018 and Up DM HGBA1C (Yearly) 01/10/2019 01/10/2018, 018, 04/21/2017, Additional history exists DM Microalbumin Urine 01/11/2019 01/11/2018, 12/14, 01/10/2018, Scrn (Yearly) Additional history exists IMM Influenza Seasonal 05/14/2020 06/27/2017May to October (>/= 19 yrs) Results Not on fileafter 01/08/2019 Insurance Type Payer Benefit Subscriber ID Effective Phone Address Plan / Dates Group [facility] xxxxxxxxx 2017- [phone] COMMUNITY Present [id number] [place] [address] Advance Directives Date Inactivated Comments Code Status Date Activated 01/12/2018 7:16 PM Full Code 01/10/2018 9:01 AM 08/18/2017 7:06 PM Full Code 08/17/2017 11:50 PM 03/24/2017 5:36 PM Full Code 03/22/2017 9:07 AM 03/22/2017 9:07 AM Discussed with the patient Allow Natural 03/21/2017 12:45 PM 08/20/2013 5:58 PM Full Code 08/16/2013 12:49 PM
--- OUTSIDE RECORDS SUMMARY | 2020-01-09 14:15 | XMS REPORT ---
Author Author [facility] t Organization [facility] Address [address] [place] [address] Phone Unavailable Care Team Providers Care Rehabilitation Worker Name Role Phone RISHI GRAVES MD PCP RISHI GRAVES Attbaldo Unavailable RISHI GRAVES Admbaldo Unavailable Payers Payer Name Policy Type Policy Number Effective Date Expiration Date [facility] [employer] [facility] [id number] 2018 00:00 :00 [facility] Problems Condition Name Condition Details Condition Category Status Onset Date Resolution Date Last Treatment Date Treating Clinician Comments Source Nausea & vomiting Nausea & vomiting Disease Active 2018-01-12 00:00:00 [facility] Fall Fall Disease Active 2018-01-10 00:00:00 [facility] Urinary tract infection Urinary tract infection Disease Active 2018-01-10 00:00:00 [facility] Acute pyelonephritis Acute pyelonephritis Disease Active 00:00:00 [facility] Disorientation Disorientation Disease Active 2018-01-09 00:00:00 [facility] Constipation Constipation Disease Active 2013-08-20 00:00:00 [facility] OA (osteoarthritis) OA (osteoarthritis) Disease Active 2013-08-20 00:00 :00 [facility] Diabetes mellitus Diabetes mellitus Disease Active 2013-08-20 00:00:00 [facility] Depression Depression Disease Active 2013-08-20 00:00:00 [facility] HTN (hypertension) HTN (hypertension) Disease Active 2013-08-20 00:00:0 0 [facility] PNA (pneumonia) PNA (pneumonia) Disease Active 2013-08-20 00:00:00 [facility] Cough Cough Disease Active 2013-08-16 00:00:00 [facility] Lower extremity pain, bilateral Lower extremity pain, bilateral Dis ease Active 2013-08-16 00:00:00 [facility] Fever Fever Disease Active 2013-08-16 00:00:00 [facility] Renal insufficiency Renal insufficiency Disease Active 2013-08-16 00:00 :00 [facility] Abdominal wall cellulitis Abdominal wall cellulitis Disease Active [facility] 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, without long-term current use of insulin 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, without long-term current use of insulin Disease Active [facility] Morbid obesity with alveolar hypoventilation Morbid ob esity with alveolar hypoventilation Disease Active [facility] Essential hypertension Essential hypertension Disease Active [facility] Abnormal stress test Abnormal stress test Disease Active [facility] Pleuritic chest pain Pleuritic chest pain Disease Active [facility] Chronic midline low back pain Chronic midline low back pain Disease Active [facility] Acute midline thoracic back pain Acute midline thoracic back richard n Disease Active [facility] KIM (acute kidney injury) KIM (acute kidney injury) Disease Active [facility] Allergies, Adverse Reactions, Alerts Allergy Name Allergy Type Status Severity Reaction(s) Onset Date Inacti ve Date Treating Clinician Comments Source Aspirin Propensity to adverse reactions to drug Active Itching 2013-08-15 00:00:00 [facility] Family History Family Member Diagnosis Comments Start Date Stop Date Source Natural father Diabetes [facility] Natural father Heart [facility] Natural father Hypertension [facility] Natural mother Arthritis [facility] Natural mother Diabetes [facility] Natural mother Heart [facility] Natural mother Hypertension [facility] Natural sister Hypertension [facility] Social History Social Habit Start Date Stop Date Quantity Comments Source Sex Assigned At [facility] Alcohol intake 2019-01-16 00:00:00 [facility] 2017-04-21 00:00:00 2017-04-21 00:00:00 1 [facility] Food Scarcity 2017-04-21 00:00:00 2017-04-21 00:00:00 1 [facility] Smoking Status Start Date Stop Date Source Never smoker [facility] Medications Ordered Medication Name Filled Medication Name Start Date Stop Da te Current Medication? Ordering Clinician Indication Dosage Frequency Signature (SIG) Comments Components Source Acetaminophen With Codeine (Tylenol With Codeine #3 Ta blet) 1 Each Tablet Acetaminophen With Codeine (Tylenol With Codeine #3 Tablet) 1 Each Tablet 2019-05-25 00:00:00 Yes Yovani M [employer] 300 Every 8 Hours as needed for Pain [facility] Amlodipine Besylate 10 Mg Tablet Amlodipine Besylate 10 Mg T ablet 2019-05-25 00:00:00 Yes Yovani M [employer] 10 Daily [facility] Diclofenac Sodium (Voltaren) 100 Gm Gel..gram. Diclofe nac Sodium (Voltaren) 100 Gm Gel..gram. 2019-05-25 00:00:00 Yes Yovani M [employer] 0 Four Times Daily [facility] Doxycycline Hyclate 100 Mg Capsule Doxycycline Hyclate 100 M g Capsule 2019-05-25 00:00:00 Yes Yovani M [employer] 100 Every 12 Hours [facility] FLUOXETINE HCL 10 mg tablet 2018-01-12 17:15:58 Yes 20mg QD Take 20 mg by mouth daily. [employer] acetaminophen (TYLENOL) 500 mg tablet 2018-01-12 00:00:00 Yes OA (osteoarthritis) 500mg Take 1 tablet by chidi every 8 hours as needed for Pain. [employer] carvedilol (COREG) 12.5 mg tablet 2018-01-12 00:00:00 Yes Essential hypertension 12.5mg Take 1 tablet by mouth every 12 hours. [employer] insulin 70/30 NPH - REGULAR (HUMULIN 70/ 30, NOVOLIN 70/30) 100 unit/mL injection 2018-01-12 00:00:00 Yes Type 2 diabetes mellitus with other specified complication, with long-term current use of insulin 10 units subcutaneous every 12 hours. [employer] nitroGLYCERIN (NITROSTAT) 0.4 mg sublingual tablet 2017-08 00:00:00 Yes Stable angina Dissolve 1 table t under the tongue every 5 minutes as needed, up to 3 times. If chest pain persists, call 911. [employer] INSULIN SYRINGE 0.5mL 30GX5/16" (ULTRA COMFORT) syringe-need le 2017-04-21 00:00:00 Yes Q.5D Use to inj ect medication 2 times daily. Use a new syringe each time. [employer] furosemide (LASIX) 40 mg tablet 2017-04-19 00:00:00 Yes [facility] traZODone (DESYREL) 50 mg tablet 2014-03-12 00:00:00 Yes Depression 50mg Take 1 tablet by mouth every evening (schedule appoint ment). HEBREW LABEL.. [facility] naproxen (NAPROSYN) 500 mg tablet 2013-09-20 00:00:00 Yes OA (osteoarthritis) 500mg Take 1 tablet by chidi th 2 times daily as needed ((for milder pain)). [facility] INSULIN SYRINGE 1mL/30GX5/16" (INSULIN SYRINGE) syringe-need le 2013-09-20 00:00:00 Yes Diabetes mellitus Us e to administer insulin twice daily. . HEBREW LABEL.. [facility] Atorvastatin Calcium 20 Mg Tablet Atorvastatin Calcium 20 Mg Tablet Yes 80 Bedtime [facility] Carvedilol 12.5 Mg Tablet Carvedilol 12.5 Mg Tablet Yes 12.5 Daily [facility] Clonidine Hcl 0.1 Mg Tablet Clonidine Hcl 0.1 Mg Tablet Yes 1 Three Times A Day [facility] Fluoxetine Hcl 10 Mg Capsule Fluoxetine Hcl 10 Mg Capsule Y es 10 Daily [facility] Furosemide 40 Mg Tablet Furosemide 40 Mg Tablet Yes 40 Daily [facility] Insulin Lisp Protam/Lisp Human (Humalog Mix 75-25 Vial ) 100 Units/Ml Ml Insulin Lisp Protam/Lisp Human (Humalog Mix 75-25 Vial) 100 Units/Ml Ml Yes [facility] Trazodone Hcl 50 Mg Tablet Trazodone Hcl 50 Mg Tablet Yes 50 Daily [facility] Verapamil Hcl (Verapamil Er) 120 Mg Cap24h.pel Verapam il Hcl (Verapamil Er) 120 Mg Cap24h.pel Yes 240 Twice A Day [facility] Ciprofloxacin Hcl (Cipro) 500 Mg Tablet, 500 Mg Oral C iprofloxacin Hcl (Cipro) 500 Mg Tablet, 500 Mg Oral 2019-05-25 00:00:00 No 500 Every 12 Hours [facility] Gabapentin 300 Mg Capsule, 300 Mg Oral Gabapentin 300 Mg Capsule , 300 Mg Oral 2019-05-25 00:00:00 No 300 Twice A Day [facility] Lisinopril 10 Mg Tablet, 20 Mg Oral Lisinopril 10 Mg Tablet, 20 Mg Oral 2019-05-25 00:00:00 No 20 Daily [facility] Sulfamethoxazole/Trimethoprim (Bactrim Ds Tablet) 1 Ea ch Tablet, 1 Tab Oral Sulfamethoxazole/Trimethoprim (Bactrim Ds Tablet) 1 Each Tablet, 1 Tab Oral 2019-05-25 00:00:00 No 1 Twice A Day [facility] Tramadol Hcl (Ultram 50MG*) 50 Mg Tab, 50 Mg Oral Tram adol Hcl (Ultram 50MG*) 50 Mg Tab, 50 Mg Oral 2019-05-25 00:00:00 No 50 [facility] Immunizations Ordered Immunization Name Filled Immunization Name Date Status Comments Source Influenza Vaccine, Seasonal, Injectable 2017-06-27 00:00:0 0 Completed [facility] PPV 23 Pneumococcal Polysaccaride 2013-08-16 00:00:00 Comp leted [facility] Influenza Vac (Fluarix) 2013-08-16 00:00:00 Completed [facility] Procedures Procedure Date / Time Performed Performing Clinician [facility] e Ultrasound, renal 2019-05-20 00:00:00 [facility] Ultrasound guidance for vascular access 2019-05-20 00:00:00 [facility] CT of abdomen and pelvis without contrast 2019-05-18 00:00:00 AM YOVANI BISHOP [facility] Plan of Care Planned Activity Planned Date Details Comments Source Future Scheduled Test 2020-05-14 00:00:00 IMM Influenza Seas onal May to October (>/= 19 yrs) [code = IMM Influenza Seasonal May to October (>/= 19 yrs)] [facility] Scheduled Test 2019-01-11 00:00:00 DM Microalbumin Ur ine Scrn (Yearly) [code = DM Microalbumin Urine Scrn (Yearly)] [facility] Future Scheduled Test 2019-01-10 00:00:00 DM HGBA1C (Yearly) [code = DM HGBA1C (Yearly)] [facility] Scheduled Test 2018 00:00:00 IMM Pneumococcal A ge 65 and Up [code = IMM Pneumococcal Age 65 and Up] [facility] Scheduled Test 2018-04-26 00:00:00 Colorectal Cancer Scrn Annual (FIT/FOBT) Age 50 to 75 [code = Colorectal Cancer Scrn Annual (FIT/FOBT) Age 50 to 75] [facility] Scheduled Test 1993 00:00:00 Breast Cancer Scrn (Yearly) [code = Breast Cancer Scrn (Yearly)] [facility] Scheduled Test 1971 00:00:00 DM Foot Exam (Year ly) [code = DM Foot Exam (Yearly)] [facility] Scheduled Test 1971 00:00:00 DM Retinal Exam (Y early) [code = DM Retinal Exam (Yearly)] [facility] Encounters Start Date/Time End Date/Time Encounter Type Admission Type Att[facility] Care Department Encounter ID Source 2019-05-17 21:15:00 2019-05-25 13:15:00 Discharged Inpatient 1 RISHI GRAVES [facility] [id number] [facility] 2018-01-22 00:00:00 2018-01-22 00:00:00 Outpatient [facility] [id number] [facility] 2018-01-19 00:00:00 2018-01-19 00:00:00 Outpatient [facility] [id number] [facility] 2018-01-10 09:57:35 2018-01-10 09:57:35 Outpatient [facility] [id number] [facility] 2018-01-10 05:48:56 2018-01-10 05:48:56 Emergency [facility] [id number] [facility] 2018-01-10 00:16:25 2018-01-10 00:16:25 Emergency [facility] [id number] [facility] 2018-01-10 00:00:00 2018-01-10 00:00:00 Outpatient [facility] [id number] [facility] 2018-01-09 22:42:35 2018-01-09 22:42:35 Emergency [facility] [id number] [facility] 2018-01-09 17:48:24 2018-01-09 17:48:24 Emergency [facility] [id number] [facility] 2018-01-09 16:13:33 2018-01-09 16:13:33 Outpatient [facility] [id number] [facility] 2017-09-11 06:36:22 2017-09-11 06:36:22 Outpatient [facility] [id number] [facility] 2017-09-04 11:29:25 2017-09-04 11:29:25 Outpatient [facility] [id number] [facility] 2017-08-21 07:49:10 2017-08-21 07:49:10 Outpatient [facility] [id number] [facility] 2017-08-18 04:43:03 2017-08-18 04:43:03 Outpatient [facility] [id number] [facility] 2017-08-18 00:00:00 2017-08-18 00:00:00 Outpatient [facility] [id number] [facility] 2017-08-17 19:39:58 2017-08-17 19:39:58 Emergency [facility] [id number] [facility] 2017-08-17 13:54:32 2017-08-17 13:54:32 Outpatient [facility] [id number] [facility] 2017-08-01 10:20:21 2017-08-01 10:20:21 Outpatient [facility] [id number] [facility] 2017-07-05 08:47:52 2017-07-05 08:47:52 Outpatient [facility] [id number] [facility] 2017-06-27 09:29:44 2017-06-27 09:29:44 Outpatient [facility] [id number] [facility] 2017-05-24 00:00:00 2017-05-24 00:00:00 Outpatient [facility] [id number] [facility] 2017-04-26 14:49:01 2017-04-26 14:49:01 Outpatient [facility] [id number] [facility] 2017-04-24 00:00:00 2017-04-24 00:00:00 Outpatient [facility] [id number] [facility] 2017-04-21 12:43:26 2017-04-21 12:43:26 Outpatient [facility] [id number] [facility] 2017-04-21 11:15:57 2017-04-21 11:15:57 Outpatient [facility] [id number] [facility] 2017-03-22 11:18:55 2017-03-22 11:18:55 Outpatient [facility] [id number] [facility] 2017-03-22 06:27:32 2017-03-22 06:27:32 Outpatient [facility] [id number] [facility] 2017-03-21 15:47:18 2017-03-21 15:47:18 Outpatient [facility] [id number] [facility] 2017-03-21 13:59:59 2017-03-21 13:59:59 Outpatient [facility] [id number] [facility] 2017-03-21 06:17:34 2017-03-21 06:17:34 Emergency [facility] [id number] [facility] 2017-03-21 04:04:37 2017-03-21 04:04:37 Outpatient [facility] [id number] [facility] 2017-03-20 23:59:31 2017-03-20 23:59:31 Emergency [facility] [id number] [facility] Results Test Description Test Time Test Comments Results Result Comments Source Lactic Acid, Plasma (Venous) 2020-01-07 05:50:12 Test Item Lactic Acid, Plasma (Venous) (test code = Lactic Acid, Plasma (Venous)) 0.4 mmol/L 0.5-1.9 L Urinalysis with Culture, if [id number] 05:23:00* Test Item Value Reference Range Interpretation Comments UA Color (test code = UA Color) YELLO Yellow UA Appear (test code = UA Appear) CLEAR Clear UA pH (test code = UA pH) 5.0 UA Spec Grav (test code = UA Spec Grav) 1.015 1.001-1.035 UA Glucose (test code = UA Glucose) NEG Negative UA Bili (test code = UA Bili) NEG Negative UA Ketones (test code = UA Ketones) NEG Negative UA Blood (test code = UA Blood) NEG Negative UA Protein (test code = UA Protein) 25 mg/dL Negative A UA Urobilinogen (test code = UA Urobilinogen) .2 mg/dL >0.2 UA Nitrite (test code = UA Nitrite) NEG Negative UA Leuk Est (test code = UA Leuk Est) NEG Negative UA Micro Ind? (test code = UA Micro Ind?) Not Indicated Not Indicat ed [id number] 22:38:39* Test Item Value Reference Range Interpretation Comments RBC Morph (test code = RBC Morph) As Indicated Normal A Anisocyte (test code = Anisocyte) 1+ None Hypochromia (test code = Hypochromia) 1+ None Seen Plt Estimation (test code = Plt Estimation) Normal Normal Comprehensive Metabolic [id number] 22:31:49* Test Item Value Reference Range Interpretation Comments Sodium Level (test code = Sodium Level) 141.0 mmol/L 135.0-145.0 Potassium Level (test code = Potassium Level) 5.2 mmol/L 3.5-5.1 H Chloride Level (test code = Chloride Level) 98 mmol/L 98-105 CO2 (test code = CO2) 30 mmol/L 22-29 H Anion Gap (test code = Anion Gap) 13 mmol/L 7-16 BUN (test code = BUN) 71.20 mg/dL 8.00-23.00 H Creatinine Level (test code = Creatinine Level) 2.20 mg/dL 0.50-0 .90 H BUN/Creat Ratio (test code = BUN/Creat Ratio) 32 N Glucose Level (test code = Glucose Level) 59 mg/dL 70-115 L Calcium Level (test code = Calcium Level) 9.1 mg/dL 8.3-10.5 Alk Phos (test code = Alk Phos) 106 U/L 35-104 H Bilirubin Total (test code = Bilirubin Total) 0.2 mg/dL 0.1-0.9 Albumin Level (test code = Albumin Level) 3.8 g/dL 3.5-5.2 Protein Total (test code = Protein Total) 6.7 g/dL 6.4-8.3 ALT (test code = ALT) 7 U/L 1-33 AST (test code = AST) see comment U/L 1-32 N 17S pecimen hemolyzed. Globulin (test code = Globulin) 2.9 g/dL 2.9-3.1 A/G Ratio (test code = A/G Ratio) 1.3 ratio N Lipase [id number] 22:31:49* Test Item Value Reference Range Interpretation Comments Lipase Level (test code = Lipase Level) 14 U/L 13-60 Comprehensive Metabolic [id number] 22:31:49* Test Item Value Reference Range Interpretation Comments Sodium Level (test code = Sodium Level) 141.0 mmol/L 135.0-145.0 Potassium Level (test code = Potassium Level) 5.2 mmol/L 3.5-5.1 H Chloride Level (test code = Chloride Level) 98 mmol/L 98-105 CO2 (test code = CO2) 30 mmol/L 22-29 H Anion Gap (test code = Anion Gap) 13 mmol/L 7-16 BUN (test code = BUN) 71.20 mg/dL 8.00-23.00 H Creatinine Level (test code = Creatinine Level) 2.20 mg/dL 0.50-0 .90 H BUN/Creat Ratio (test code = BUN/Creat Ratio) 32 N Glucose Level (test code = Glucose Level) 59 mg/dL 70-115 L Calcium Level (test code = Calcium Level) 9.1 mg/dL 8.3-10.5 Alk Phos (test code = Alk Phos) 106 U/L 35-104 H Bilirubin Total (test code = Bilirubin Total) 0.2 mg/dL 0.1-0.9 Albumin Level (test code = Albumin Level) 3.8 g/dL 3.5-5.2 Protein Total (test code = Protein Total) 6.7 g/dL 6.4-8.3 ALT (test code = ALT) 7 U/L 1-33 AST (test code = AST) see comment U/L 1-32 N 17S pecimen hemolyzed. Globulin (test code = Globulin) 2.9 g/dL 2.9-3.1 A/G Ratio (test code = A/G Ratio) 1.3 ratio N eGFR AA (test code = eGFR AA) 27 mL/min/1.73 m2 N eGFR (estimated Glomerular Filtration Rate) is an estimated value, calculated from the patient's serum creatinine using the MDRD equation. It is NOT the patient's actual GFR. The eGFR provides a more clinically useful measure of kidney disease than serum creatinine alone.This calculation takes sex and race into account, if the information is provided. If the race is not provided, and the patient is -[place], multiply by 1.212. If sex is not provided, and the patient is female, multiply by 0.742. Results for patients <18 years of age have not been validated by the MDRD study and should be interpreted with caution. eGFR Result Interpretation:eGFR > or = 60 is in the Normal RangeeGFR < 60 may mean kidney diseaseeGFR < 15 may mean kidney failure Ranges recommended by the National Kidney Foundation, http://nkdep.nih.gov Comprehensive Metabolic [id number] 22:31:49* Test Item Value Reference Range Interpretation Comments Sodium Level (test code = Sodium Level) 141.0 mmol/L 135.0-145.0 Potassium Level (test code = Potassium Level) 5.2 mmol/L 3.5-5.1 H Chloride Level (test code = Chloride Level) 98 mmol/L 98-105 CO2 (test code = CO2) 30 mmol/L 22-29 H Anion Gap (test code = Anion Gap) 13 mmol/L 7-16 BUN (test code = BUN) 71.20 mg/dL 8.00-23.00 H Creatinine Level (test code = Creatinine Level) 2.20 mg/dL 0.50-0 .90 H BUN/Creat Ratio (test code = BUN/Creat Ratio) 32 N Glucose Level (test code = Glucose Level) 59 mg/dL 70-115 L Calcium Level (test code = Calcium Level) 9.1 mg/dL 8.3-10.5 Alk Phos (test code = Alk Phos) 106 U/L 35-104 H Bilirubin Total (test code = Bilirubin Total) 0.2 mg/dL 0.1-0.9 Albumin Level (test code = Albumin Level) 3.8 g/dL 3.5-5.2 Protein Total (test code = Protein Total) 6.7 g/dL 6.4-8.3 ALT (test code = ALT) 7 U/L 1-33 AST (test code = AST) see comment U/L 1-32 N 17S pecimen hemolyzed. Globulin (test code = Globulin) 2.9 g/dL 2.9-3.1 A/G Ratio (test code = A/G Ratio) 1.3 ratio N eGFR AA (test code = eGFR AA) 27 mL/min/1.73 m2 N eGFR (estimated Glomerular Filtration Rate) is an estimated value, calculated from the patient's serum creatinine using the MDRD equation. It is NOT the patient's actual GFR. The eGFR provides a more clinically useful measure of kidney disease than serum creatinine alone.This calculation takes sex and race into account, if the information is provided. If the race is not provided, and the patient is -[place], multiply by 1.212. If sex is not provided, and the patient is female, multiply by 0.742. Results for patients <18 years of age have not been validated by the MDRD study and should be interpreted with caution. eGFR Result Interpretation:eGFR > or = 60 is in the Normal RangeeGFR < 60 may mean kidney diseaseeGFR < 15 may mean kidney failure Ranges recommended by the National Kidney Foundation, http://nkdep.nih.gov eGFR Non-AA (test code = eGFR Non-AA) 22.33 mL/min/1.73 m2 N eGFR (estimated Glomerular Filtration Rate) is an estimated value, calculated from the patient's serum creatinine using the MDRD equation. It is NOT the patient's actual GFR. The eGFR provides a more clinically useful measure of kidney disease than serum creatinine alone.This calculation takes sex and race into account, if the information is provided. If the race is not provided, and the patient is -[place], multiply by 1.212. If sex is not provided, and the patient is female, multiply by 0.742. Results for patients <18 years of age have not been validated by the MDRD study and should be interpreted with caution. eGFR Result Interpretation:eGFR > or = 60 is in the Normal RangeeGFR < 60 may mean kidney diseaseeGFR < 15 may mean kidney failure Ranges recommended by the National Kidney Foundation, http://nkdep.nih.gov Complete Blood Count with [id number] 22:22:34* Test Item Value Reference Range Interpretation Comments WBC (test code = WBC) 7.7 x10 4.4-10.5 RBC (test code = RBC) 3.04 x10 3.75-5.20 L Hgb (test code = Hgb) 7.9 g/dL 12.2-14.8 L MCV (test code = MCV) 92.10 fL 80.00-100.00 Hct (test code = Hct) 28.0 % 36.5-44.4 L MCHC (test code = MCHC) 28.20 g/dL 32.00-37.50 L RDW CV (test code = RDW CV) 16.9 % 11.5-14.5 H MCH (test code = MCH) 26.0 pg 27.0-32.5 L Platelets (test code = Platelets) 168.0 x10 140.0-440.0 MPV (test code = MPV) 11.5 fL N Slide Review (test code = Slide Review) Smear Auto A Result created by [email or web address] [email or web address] nRBC (test code = nRBC) 0 N NRBC Abs (test code = NRBC Abs) 0.00 x10 N Pos Morph XN (test code = Pos Morph XN) A N IPF (test code = IPF) 0 % N Automated [id number] 22:22:34* Test Item Value Reference Range Interpretation Comments Neutro Auto (test code = Neutro Auto) 72.1 % 36.0-70.0 H Lymph Auto (test code = Lymph Auto) 9.7 % 12.0-44.0 L Louisa Auto (test code = Louisa Auto) 11.1 % 0.0-11.0 H Eos, Auto (test code = Eos, Auto) 6.1 % 0.0-7.0 Basophil Auto (test code = Basophil Auto) 0.6 % 0.0-2.0 Neutro Absolute (test code = Neutro Absolute) 5.6 x10 1.6-7.4 Lymph Absolute (test code = Lymph Absolute) .75 x10 .50-4.60 Louisa Absolute (test code = Louisa Absolute) .86 x10 .00-1.20 Eos Absolute (test code = Eos Absolute) 0.47 x10 0.00-0.74 Baso Absolute (test code = Baso Absolute) 0.05 x10 0.00-0.21 IG [id number] 22:22:34* Test Item Value Reference Range Interpretation Comments IG (test code = IG) 0.4 % 0.0-5.0 IG Abs (test code = IG Abs) 0 x10 N Bedside [id number] 11:41:00* Test Item Value Reference Range Interpretation Comments Bedside Glucose (test code = 84924-6) 202 70-120 H Meter ID: [id number] [facility] 2019-[facility]-25 03:33:00* Test Item Value Reference Range Interpretation Comments Sodium Level (test code = 2951-2) 138 136-145 [facility] HospitalPotassium Uljpa8994-84-76 03:33:00* Test Item Value Reference Range Interpretation Comments Potassium Level (test code = 2823-3) 4.6 3.5-5.1 [facility] HospitalChloride Pxwuh1329-26-57 03:33:00* Test Item Value Reference Range Interpretation Comments Chloride Level (test code = 2075-0) 99 98-107 [facility] HospitalCarbon Dioxide Iaujl8267-39-63 03:33:00* Test Item Value Reference Range Interpretation Comments Carbon Dioxide Level (test code = 2028-9) 29 22-29 [facility] HospitalAnion Ypk6672-97-90 03:33:00* Test Item Value Reference Range Interpretation Comments Anion Gap (test code = 13550-4) 14.6 8-16 [facility] HospitalBlood Urea Knvwgipo6004-07-61 03:33:00* Test Item Value Reference Range Interpretation Comments Blood Urea Nitrogen (test code = 3094-0) 50 7-26 H [facility] HospitalCreatinine2019-10-12 03:33:00* Test Item Value Reference Range Interpretation Comments Creatinine (test code = 2160-0) 1.98 0.57-1.11 H [facility] HospitalBUN/Creatinine Pugzm2637-62-42 03:33:00* Test Item Value Reference Range Interpretation Comments BUN/Creatinine Ratio (test code = 3097-3) 25 6-25 [facility] HospitalEstimat Glomerular Filtration Rate 2019-05-25 03:33:00* Test Item Value Reference Range Interpretation Comments Estimat Glomerular Filtration Rate (test code = 187696563) 25 >60 L Ranges were taken from the National Kidney Disease Education Program and the [facility] literature.Reference ranges:60 or greater: Khahxf07-19 ( for 3 consecutive months): Chronic kidney disease 15 or less: Kidney failureTexas Health Arlington Memorial HospitalGlucose Kzjzo9379-36-38 03:33:00* Test Item Value Reference Range Interpretation Comments Glucose Level (test code = KHM0462) 176 74-118 H [facility] HospitalCalcium Dqkcy6819-05-81 03:33:00* Test Item Value Reference Range Interpretation Comments Calcium Level (test code = 53234-2) 10.2 8.4-10.2 [facility] HospitalWhite Blood Mgpsw5769-88-27 03:32:00* Test Item Value Reference Range Interpretation Comments White Blood Count (test code = 6690-2) 6.73 4.8-10.8 [facility] HospitalRed Blood Anxsc9103-39-23 03:32:00* Test Item Value Reference Range Interpretation Comments Red Blood Count (test code = 789-8) 3.11 3.6-5.1 L [facility] HospitalHemoglobin2019-10-12 03:32:00* Test Item Value Reference Range Interpretation Comments Hemoglobin (test code = 42700-2) 8.5 12.0-16.0 L [facility] HospitalHematocrit2019-10-12 03:32:00* Test Item Value Reference Range Interpretation Comments Hematocrit (test code = 4544-3) 27.5 34.2-44.1 L [facility] HospitalMean Corpuscular Miqdoo9901-46-44 03:32:00* Test Item Value Reference Range Interpretation Comments Mean Corpuscular Volume (test code = 787-2) 88.4 81-99 [facility] HospitalMean Corpuscular Mjipazdiuy7936-49-02 03:32:00* Test Item Value Reference Range Interpretation Comments Mean Corpuscular Hemoglobin (test code = 785-6) 27.3 28-32 L [facility] HospitalMean Corpuscular Hemoglobin Concent 2019-05-25 03:32:00* Test Item Value Reference Range Interpretation Comments Mean Corpuscular Hemoglobin Concent (test code = 786-4) 30.9 31-35 L [facility] HospitalRed Cell Distribution Hhvqp6870-92-55 03:32:00* Test Item Value Reference Range Interpretation Comments Red Cell Distribution Width (test code = 48568-8) 14.9 11.7 -14.4 H [facility] HospitalPlatelet Tdfnn1373-54-07 03:32:00* Test Item Value Reference Range Interpretation Comments Platelet Count (test code = 777-3) 187 140-360 [facility] HospitalNeutrophils (%) (Auto)2019-05-25 03:32:00 * Test Item Value Reference Range Interpretation Comments Neutrophils (%) (Auto) (test code = 84868-0) 71.5 38.7-80.0 [facility] HospitalLymphocytes (%) (Auto)2019-05-25 03:32:00 * Test Item Value Reference Range Interpretation Comments Lymphocytes (%) (Auto) (test code = 736-9) 10.0 18.0-39.1 L [facility] HospitalMonocytes (%) (Auto)2019-05-25 03:32:00* Test Item Value Reference Range Interpretation Comments Monocytes (%) (Auto) (test code = 5905-5) 12.0 4.4-11.3 H [facility] HospitalEosinophils (%) (Auto)2019-05-25 03:32:00 * Test Item Value Reference Range Interpretation Comments Eosinophils (%) (Auto) (test code = 713-8) 5.5 0.0-6.0 [facility] HospitalBasophils (%) (Auto)2019-05-25 03:32:00* Test Item Value Reference Range Interpretation Comments Basophils (%) (Auto) (test code = 706-2) 0.7 0.0-1.0 [facility] HospitalIM GRANULOCYTES %2019-05-25 03:32:00* Test Item Value Reference Range Interpretation Comments IM GRANULOCYTES % (test code = IM GRANULOCYTES %) 0.3 0.0- 1.0 [facility] HospitalNeutrophils # (Auto)2019-05-25 03:32:00* Test Item Value Reference Range Interpretation Comments Neutrophils # (Auto) (test code = 751-8) 4.8 2.1-6.9 [facility] HospitalLymphocytes # (Auto)2019-05-25 03:32:00* Test Item Value Reference Range Interpretation Comments Lymphocytes # (Auto) (test code = 58443-9) 0.7 1.0-3.2 L [facility] HospitalMonocytes # (Auto)2019-05-25 03:32:00* Test Item Value Reference Range Interpretation Comments Monocytes # (Auto) (test code = 742-7) 0.8 0.2-0.8 [facility] HospitalEosinophils # (Auto)2019-05-25 03:32:00* Test Item Value Reference Range Interpretation Comments Eosinophils # (Auto) (test code = 711-2) 0.4 0.0-0.4 [facility] HospitalBasophils # (Auto)2019-05-25 03:32:00* Test Item Value Reference Range Interpretation Comments Basophils # (Auto) (test code = 704-7) 0.1 0.0-0.1 [facility] HospitalAbsolute Immature Granulocyte (auto 2019-05-25 03:32:00* Test Item Value Reference Range Interpretation Comments Absolute Immature Granulocyte (auto (cristina t code = Absolute Immature Granulocyte (auto) 0.02 0-0.1 [facility] HospitalVancomycin Level Sjllbz0315-75-83 05:55:00* Test Item Value Reference Range Interpretation Comments Vancomycin Level Trough (test code = 4092-3) 15.7 5.0-10.0 Results repeated and called to ARLENE BLOOD RN at 0554 on 05/24/19 by Patricia Haney. Read back and verified.[facility] HospitalCHEST SINGLE (PORTABLE)2019-05-22 08:33:00 [facility] [address] [place] [address] Patient Name: JOEL BENITEZ MR #: [id number] : 1955 Age/Sex: 63/F Req #: [id number] Adm Physician: RISHI GRAVES MD Ordered by: Yovani Langley MATERIAL HANDLER 2ND SHIFT Report #: [id number] Location: MED/SURG2 Room/Bed: [facility] Procedure: [id number] D X/CHEST SINGLE (PORTABLE) Exam Date: 05/22/19 Exam T sarah: 0710 REPORT STATUS: Signed EXAMINATION: CHEST SINGLE (PORTABLE) INDICATION: Shortness of breath COMPARISON: Chest radiograph 05/20/2019 FINDINGS: LINES/TUBES: EKG leads overlie the chest. Right IJ central venous catheter terminates in th e superior vena cava. LUNGS:The lungs are moderately inflated. There is per ihilar fullness and indistinctness of the pulmonary vasculature. PLEURA:N o pleural effusion or pneumothorax. MEDIASTINUM:Cardiomediastinal silhouett e is stably enlarged. BONES/SOFT TISSUES:No acute osseous injury. ABDO MEN:No free air under the diaphragm. IMPRESSION: Unchanged cardiomega ly and mild pulmonary edema. Signed by: Martir Sepulveda MD on 05/22/2019 8:42 AM Dictated By: MARTIR SEPULVEDA MD 1 COPY TO: YOVANI LANGLEY MATERIAL HANDLER 2ND SHIFT IR KVCFBUG4758-20-74 17:37:00 [place] [address] Patient Name: JOEL BENITEZ MR #: [id number] : 1955 Age/Sex: 63/F Req #: [id number] Adm Physician: RISHI GRAVES MD Ordered by: NATHAN MIRANDA MD Report #: [id number] Location: MED/SURG2 Room/Bed: [facility] Procedure: [id number] DX /IR CONSULT Exam Date: Exam Time: REPORT STATUS: Signed PROCEDURE: Non-tunneled ce ntral venous catheter placement Procedural Personnel Attending physician( s): Martir Sepulveda MD Fellow physician(s): None Resident physician(s): None A dvanced practice provider(s): None Pre-procedure diagnosis: Sepsis Post-p rocedure diagnosis: Same Indication: Administration of intravenous medications Additional clinical history: None Complications: No immediate complicati ons. IMPRESSION: Insertion of right-sided non-tunneled triple-lumen te mporary central venous catheter. Plan: [facility] PROCEDURE SUMMARY: - Venous access with ultrasound guidmakenzie ce - Non-tunneled central venous catheter insertion - Additional procedure( s): None PROCEDURE DETAILS: Pre-procedure Consent: Informed consent for the procedure including risks, benefits and alternatives was obtained and time-out was performed prior to the procedure. Preparation (MIPS): The site wa s prepared and draped using all elements of maximal sterile barrier technique including sterile gloves, sterile gown, cap, mask, large sterile sheet, steril e ultrasound probe cover, hand hygiene and cutaneous antisepsis with 2% chlorh exidine. Medical reason for site preparation exception (MIPS): Not applicable Anesthesia/sedation Level of anesthesia/sedation: No sedation Access Local anesthesia was administered. The vessel was sonographically evaluated and determined to be patent. Real time ultrasound was used to visualize needle entry into the vessel and a permanent image was stored. Vein accessed: Inte rnal jugular vein Access technique: 19 gauge access needle Catheter place ment The access site was dilated and the catheter was placed into the vein ove r a wire. A sterile dressing was applied. Catheter placed: Bard triple lume n CVC Catheter size (Omani): 7 Catheter length (cm): 16 Catheter flush: N ormal saline Catheter securement technique: Non-absorbable suture Contras t Contrast agent: None Radiation Dose None, ultrasound guidance only. C hest radiograph to follow. Additional Details Additional description of p rocedure: None Equipment details: None Specimens removed: None Estimated b lood loss (mL): Less than 10 Standardized report: [email or web address]_ v3 Attestation Signer name: Martir Sepulveda MD I attest that I was present for the entire procedure. I reviewed the stored images and agree with the repo rt as written. Signed by: Martir Sepulveda MD on 05/20/2019 5:39 PM Dictat ed By: MARTIR SEPULVEDA MD 38 Transcribed By: VICKY on 05/20/191738 COPY TO: NATHAN MIRANDA MD NON-TUNNELLED CVC CATH CASPEVF9240-31-01 17:37:00 [place] [address] Patient Name: JOEL BENITEZ MR #: [id number] : 1955 Age/Sex: 63/F Req #: [id number] Adm Physician: RISHI GRAVES MD Ordered by: NATHAN MIRANDA MD Report #: [id number] Location: MED/SURG2 Room/Bed: [facility] Procedure: [id number] IR /NON-TUNNELLED CVC CATH PLACMNT Exam Date: 05/20/19 Exam Time: 1513 REPORT STATUS: Sign ed PROCEDURE: Non-tunneled central venous catheter placement Procedural Personnel Attending physician(s): Martir Sepulveda MD Fellow physician(s): None Resident physician(s): None Advanced practice provider(s): None Pre-proc edure diagnosis: Sepsis Post-procedure diagnosis: Same Indication: Administr ation of intravenous medications Additional clinical history: None Compli cations: No immediate complications. IMPRESSION: Insertion of right-si ded non-tunneled triple-lumen temporary central venous catheter. Plan: Portable chest radiograph to confirm location prior to use. PROCEDURE SUMMARY: - Veno us access with ultrasound guidance - Non-tunneled central venous catheter inse rtion - Additional procedure(s): None PROCEDURE DETAILS: Pre-proced ure Consent: Informed consent for the procedure including risks, benefits and alternatives was obtained and time-out was performed prior to the procedure. Preparation (MIPS): The site was prepared and draped using all elements of heather thornton sterile barrier technique including sterile gloves, sterile gown, cap, m ask, large sterile sheet, sterile ultrasound probe cover, hand hygiene and cut aneous antisepsis with 2% chlorhexidine. Medical reason for site preparation exception (MIPS): Not applicable Anesthesia/sedation Level of anesthesia/ sedation: No sedation Access Local anesthesia was administered. The vesse l was sonographically evaluated and determined to be patent. Real time ultraso und was used to visualize needle entry into the vessel and a permanent image w as stored. Vein accessed: Internal jugular vein Access technique: 19 gauge a ccess needle Catheter placement The access site was dilated and the eliana ter was placed into the vein over a wire. A sterile dressing was applied. C atheter placed: Bard triple lumen CVC Catheter size (Omani): 7 Catheter lisa gth (cm): 16 Catheter flush: Normal saline Catheter securement technique: No n-absorbable suture Contrast Contrast agent: None Radiation Dose N one, ultrasound guidance only. Chest radiograph to follow. Additional Detai ls Additional description of procedure: None Equipment details: None Speci mens removed: None Estimated blood loss (mL): Less than 10 Standardized repo rt: [email or web address] Attestation Signer name: Ludmila Rodriguez I attest that I was present for the entire procedure. I reviewed the stored images and agree with the report as written. Signed by: Martir Sepulveda MD on 05/20/2019 5:39 PM Dictated By: MARTIR SEPULVEDA MD 38 Transcribed By: VICKY on 05/20/191738 C OPY TO: NATHAN MIRANDA MD US GUIDANCE FOR VASCULAR JAUKD6426-88-32 17:37:00 [place] [address] Patient Name: JOEL BENITEZ MR #: [id number] : 1955 Age/Sex: 63/F Req #: [id number] Adm Physician: RISHI GRAVES MD Ordered by: NATHAN MIRANDA MD Report #: [id number] Location: MED/SURG2 Room/Bed: [facility] Procedure: [id number] US /US GUIDANCE FOR VASCULAR ACCES Exam Date: 05/20/19 Exam Time: 1513 REPORT STATUS: Sign ed PROCEDURE: Non-tunneled central venous catheter placement Procedural Personnel Attending physician(s): Martir Sepulveda MD Fellow physician(s): None Resident physician(s): None Advanced practice provider(s): None Pre-proc edure diagnosis: Sepsis Post-procedure diagnosis: Same Indication: Administr ation of intravenous medications Additional clinical history: None Compli cations: No immediate complications. IMPRESSION: Insertion of right-si ded non-tunneled triple-lumen temporary central venous catheter. Plan: Portable chest radiograph to confirm location prior to use. PROCEDURE SUMMARY: - Veno us access with ultrasound guidance - Non-tunneled central venous catheter inse rtion - Additional procedure(s): None PROCEDURE DETAILS: Pre-proced ure Consent: Informed consent for the procedure including risks, benefits and alternatives was obtained and time-out was performed prior to the procedure. Preparation (MIPS): The site was prepared and draped using all elements of heather thornton sterile barrier technique including sterile gloves, sterile gown, cap, m ask, large sterile sheet, sterile ultrasound probe cover, hand hygiene and cut aneous antisepsis with 2% chlorhexidine. Medical reason for site preparation exception (MIPS): Not applicable Anesthesia/sedation Level of anesthesia/ sedation: No sedation Access Local anesthesia was administered. The vesse l was sonographically evaluated and determined to be patent. Real time ultraso und was used to visualize needle entry into the vessel and a permanent image w as stored. Vein accessed: Internal jugular vein Access technique: 19 gauge a ccess needle Catheter placement The access site was dilated and the eliana ter was placed into the vein over a wire. A sterile dressing was applied. C atheter placed: Bard triple lumen CVC Catheter size (Omani): 7 Catheter lisa gth (cm): 16 Catheter flush: Normal saline Catheter securement technique: No n-absorbable suture Contrast Contrast agent: None Radiation Dose N one, ultrasound guidance only. Chest radiograph to follow. Additional Detai ls Additional description of procedure: None Equipment details: None Speci mens removed: None Estimated blood loss (mL): Less than 10 Standardized repo rt: [email or web address] Attestation Signer name: Ludmila Rodriguez I attest that I was present for the entire procedure. I reviewed the stored images and agree with the report as written. Signed by: Martir Sepulveda MD on 05/20/2019 5:39 PM Dictated By: MARTIR SEPULVEDA MD 38 Transcribed By: VICKY on 05/20/191738 C EMILYY TO: NATHAN MIRANDA MD RENAL RETROPERITONEAL PHMG7297-90-36 17:25:00 [place] [address] Patient Name: JOEL BENITEZ MR #: [id number] : 1955 Age/Sex: 63/F Req #: [id number] Adm Physician: RISHI GRAVES MD Ordered by: NATHAN MIRANDA MD Report #: [id number] Location: MED/SURG2 Room/Bed: [facility] Procedure: [id number] US /US RENAL RETROPERITONEAL COMP Exam Date: 05/20/19 E xam Time: 1545 REPORT STATUS: Margo d EXAM: Renal Ultrasound INDICATION: Acute kidney injury. COMPARISON: CT abdomen and pelvis of 05/18/2019 TECHNIQUE: Transverse and longitudinal images of the kidneys and bladder were obtained. FINDINGS: Extremely difficult exam due to patient body habitus. Right Kidney: Not visualized due to patient body habitus and inability to turn. Left Kidney: Length: 10.6 cm Appearance: Normal echogenicity. Collecting system: No hydronep hrosis Stones: None Cyst/Mass: None Bladder: Caldera in place. IM PRESSION: Extremely limited exam due to patient body habitus and inability to move or turn. Right kidney not visualized. No renal calculi or hydronephr osis on the left. Signed by: Martir Sepulveda MD on 05/20/2019 5:26 PM Dic tated By: MARTIR SEPULVEDA MD 172 6 Transcribed By: VICKY on 05/20/19 1726 COPY TO: NATHAN MIRANDA MD CHEST SINGLE (PORTABLE)2019-05-20 17:22:00 [place] [address] Patient Name: JOEL BENITEZ MR #: [id number] : 1955 Age/Sex: 63/F Req #: [id number] Adm Physician: RISHI GRAVES MD Ordered by: NATHAN MIRANDA MD Report #: [id number] Location: MED/SURG2 Room/Bed: 209-1 Procedure: [id number] DX /CHEST SINGLE (PORTABLE) Exam Date: 05/20/19 Exam Ti me: 1630 REPORT STATUS: Signed E xamination: Single AP view of the chest. COMPARISON: None. INDICATION: Central line placement DISCUSSION: Lines/tubes: Right IJ cathet er with tip overlying the low SVC. Lungs: Limited evaluation due to rotati on, unremarkable. Pleura: Limited evaluation Heart and mediastinum: Limited evaluation Bones and soft tissues: No acute bony abnormalities. IMPRESSION: Patient rotated. Right PICC line with tip overlying the low SVC. Signed by: Dr. Lisset Michel M.D. on 05/20/2019 5:23 PM Dictated By: LISSET MICHEL MD 22 Transcribed By: VICKY on 05/20/191722 COPY TO: NATHAN MIRANDA MD Prothrombin Yhbq1009-71-51 12:45:00* Test Item Value Reference Range Interpretation Comments Prothrombin Time (test code = 5902-2) 14.8 11.9-14.5 H [facility] HospitalProthromb Time International Ratio 2019-05-20 12:45:00* Test Item Value Reference Range Interpretation Comments Prothromb Time International Ratio (test code = 6301-6) 1.11 Oral Anticoagulant Therapy INR Values:1. Low Intensity Therapy 1.5 - 2.02 . Moderate Intensity Therapy 2.0 - 3.03. High Intensity Therapy(1) 2.5 - 3. 54. High Intensity Therapy(2) 3.0 - 4.05. Panic Value INR > 5.0 [facility] ZJXSPYID9674-49-63 07:20:00 [facility] [address] [place] [address] Patient Name: JOEL BENITEZ MR #: [id number] : [birth year] Age/Sex: 63/F Req #: [id number] Adm Physician: RISHI GRAVES MD Ordered by: Yovani Langley MATERIAL HANDLER 2ND SHIFT Report #: [id number] Location: MED/SURG2 Room/Bed: [facility] Procedure: [id number] D X/SHOULDER LEFT COMPLETE Exam Date: 05/20/19 Exam Ti me: 0645 REPORT STATUS: Signed X -ray left shoulder 2 views HISTORY: Pain. COMPARISON: Left shoulder radiographs 05/19/2019. FINDINGS: Bones: No acute displaced fractur e. Inferior subluxation of the left humeral head relative to the glenoid. Joints: Degenerative changes in the acromioclavicular and glenohumeral join t. Soft tissues: The soft tissues appear unremarkable. IMPRESSION : Inferior subluxation of the left humeral head relative to the glenoid, c an be due to muscle laxity. Degenerative changes in the shoulder. Margo d by: Will Reid DO on 05/20/2019 7:22 AM Dictated By: WILL SUAREZ DO 1 Transcrib ed By: VICKY on 05/20/19721 COPY TO: YOVANI LANGLEY NP Vitamin B12 Yjdjw6685-26-01 05:11:00* Test Item Value Reference Range Interpretation Comments Vitamin B12 Level (test code = 09121-3) 4789 213-593 [facility]Folate2019-10-07 05:11:00* Test Item Value Reference Range Interpretation Comments Folate (test code = 2284-8) 7.5 7.0-15.4 [facility] HospitalFerritin2019-10-07 04:56:00* Test Item Value Reference Range Interpretation Comments Ferritin (test code = 2276-4) 31.93 4.63-204.00 [facility] HospitalPhosphorus Lbsag2144-62-12 04:39:00* Test Item Value Reference Range Interpretation Comments Phosphorus Level (test code = WMA9711) 4.7 2.3-4.7 [facility] HospitalIron Ulyhz2071-12-48 04:39:00* Test Item Value Reference Range Interpretation Comments Iron Level (test code = 2498-4) 20 50-170 L [facility] HospitalTotal Iron Binding Vunjsxfr8159-75-60 04:39:00* Test Item Value Reference Range Interpretation Comments Total Iron Binding Capacity (test code = 2500-7) 335 261-4 78 [facility] HospitalPercent Iron Flwytvehfs1382-41-80 04:39:00* Test Item Value Reference Range Interpretation Comments Percent Iron Saturation (test code = 2502-3) 6 15-50 L [facility] HospitalTransferrin2019-10-07 04:39:00* Test Item Value Reference Range Interpretation Comments Transferrin (test code = 3034-6) 239 180-382 [facility] HospitalUrine DBH2821-30-72 03:03:00* Test Item Value Reference Range Interpretation Comments Urine WBC (test code = 5821-4) 0-5 0-5 [facility] HospitalUrine WSN8638-18-23 03:03:00* Test Item Value Reference Range Interpretation Comments Urine RBC (test code = 94569-9) 0-5 0-5 [facility] HospitalUrine Lkftjlmq7795-93-93 03:03:00* Test Item Value Reference Range Interpretation Comments Urine Bacteria (test code = 43254-6) FEW NONE [facility] HospitalUrine Epithelial Snfad4389-85-70 03:03:00 * Test Item Value Reference Range Interpretation Comments Urine Epithelial Cells (test code = 27345-2) FEW NONE [facility] HospitalUrine Ykiarkbcmxy5115-83-10 01:16:00* Test Item Value Reference Range Interpretation Comments Urine Eosinophils (test code = 04779-1) NONE SEEN NONE SEEN [facility] HospitalUrine Random Total Awfxuit1629-62-59 23:22:00* Test Item Value Reference Range Interpretation Comments Urine Random Total Protein (test code = 2888-6) 10.9 1-14 [facility] HospitalUrine Random Hhemaz1039-11-07 23:22:00* Test Item Value Reference Range Interpretation Comments Urine Random Sodium (test code = 2955-3) 66 [facility] HospitalUrine Xsveojkayc2413-97-70 23:22:00* Test Item Value Reference Range Interpretation Comments Urine Creatinine (test code = 2161-8) 59.61 47-110 [facility] HospitalUrine Protein/Creatinine Oklqx0037-70-56 23:22:00* Test Item Value Reference Range Interpretation Comments Urine Protein/Creatinine Ratio (test code = 41361-1) 0.00 [facility] HospitalUrine Jhsjw9252-69-49 23:20:00* Test Item Value Reference Range Interpretation Comments Urine Color (test code = 5778-6) YELLOW YELLOW [facility] [id number] 23:20:00* Test Item Value Reference Range Interpretation Comments Urine Clarity (test code = 25957-3) CLEAR CLEAR [facility] Specific Oszswbo9611-32-00 23:20:00 * Test Item Value Reference Range Interpretation Comments Urine Specific [place] (test code = 5811-5) 1.020 1.010-1.02 5 [facility] [id number] 23:20:00* Test Item Value Reference Range Interpretation Comments Urine pH (test code = 50194-7) 5.5 5-7 [facility] Leukocyte Ydswpzos1950-59-75 23:20:00* Test Item Value Reference Range Interpretation Comments Urine Leukocyte Esterase (test code = 5799-2) NEGATIVE NEGATIVE [facility] [id number] 23:20:00* Test Item Value Reference Range Interpretation Comments Urine Nitrite (test code = 39196-6) NEGATIVE NEGATIVE [facility] Oyhccaw1436-77-42 23:20:00* Test Item Value Reference Range Interpretation Comments Urine Protein (test code = 5804-0) NEGATIVE NEGATIVE [facility] Glucose (UA)2019-05-19 23:20:00* Test Item Value Reference Range Interpretation Comments Urine Glucose (UA) (test code = 2349-9) NEGATIVE NEGATIVE [facility] Pwnjeae1399-25-88 23:20:00* Test Item Value Reference Range Interpretation Comments Urine Ketones (test code = 88142-6) NEGATIVE NEGATIVE [facility] Mqkgueqdqunp6032-79-19 23:20:00* Test Item Value Reference Range Interpretation Comments Urine Urobilinogen (test code = 65310-0) 0.2 0.2-1 [facility] Rqnoribpy9023-75-14 23:20:00* Test Item Value Reference Range Interpretation Comments Urine Bilirubin (test code = 1978-6) NEGATIVE NEGATIVE [facility] Gtxsp7631-55-25 23:20:00* Test Item Value Reference Range Interpretation Comments Urine Blood (test code = 55468-8) NEGATIVE NEGATIVE [facility] 1 [id number] 15:27:00 [place] [address] Patient Name: JOEL BENITEZ MR #: [id number] : 1955 Age/Sex: 63/F Req #: [id number] Adm Physician: RISHI GRAVES MD Ordered by: Yovani Langley NP Report #: [id number] Location: MED/SURG2 Room/Bed: [facility] Procedure: [id number] D X/SHOULDER LEFT 1 VIEW Exam Date: 05/19/19 Exam Time : 1514 REPORT STATUS: Signed MIGUEL T SHOULDER - 1 Image(s) : Single internal rotation view HISTORY: Shoulder pain, abdominal wall cellulitis COMPARISON: None available. FIND INGS: Evaluation is markedly limited secondary to a single projection and soft tissue attenuation. Evaluation is further limited by portable technique and overlying artifacts. Bones: No acute displaced fracture. No aggressi ve osseous lesion. Joints: Moderate degenerative changes of the flume worker elif ventricular joint. Soft tissues: The soft tissues appear unremarkable . IMPRESSION: 1. Moderate acromioclavicular osteoarthrosis. 2. Re commend routine 3 view shoulder radiograph series (performed in the radiology department/nonportable) when feasible for further evaluation. Signed by: Dr. Talha Joseph D.O., M.M.M. on 05/19/2019 3:35 PM Dictated By: TALHA GARRETT DO 1535 Transcribed B y: VICKY on 05/19/19 1535 COPY TO: YOVANI LANGLEY NP B-Type Natriuretic Pprmznp2697-19-58 06:55:00* Test Item Value Reference Range Interpretation Comments B-Type Natriuretic Peptide (test code = 16499-6) 36.7 0-100 [facility] HospitalThyroid Stimulating Hormone (TSH) 2019-05-19 06:54:00* Test Item Value Reference Range Interpretation Comments Thyroid Stimulating Hormone (TSH) (test code = 30442-7) 1.837 0.350-4.940 [facility] HospitalTriglycerides Brjnw0707-22-85 10:28:00* Test Item Value Reference Range Interpretation Comments Triglycerides Level (test code = 2571-8) 48 0-149 [facility] HospitalCholesterol Qjhjv9581-97-48 10:28:00* Test Item Value Reference Range Interpretation Comments Cholesterol Level (test code = 2093-3) 80 0-199 Less than 200 mg/dL Low Ksyt692 - 239 mg/dL Borderline Gbao563 m g/dl and greater High Risk [facility] HospitalLDL Xcgnvktozok3282-47-42 10:28:00* Test Item Value Reference Range Interpretation Comments LDL Cholesterol (test code = 2089-1) 27 60-130 L [facility] HospitalHDL Dpmgonjuddc0535-29-09 10:28:00* Test Item Value Reference Range Interpretation Comments HDL Cholesterol (test code = 2085-9) 43 40-60 [facility] HospitalCholesterol/HDL Ycjxb0937-90-56 10:28:00 * Test Item Value Reference Range Interpretation Comments Cholesterol/HDL Ratio (test code = 9830-1) 1.9 3.0-3.6 L [facility] HospitalLipase2019-10-05 10:28:00* Test Item Value Reference Range Interpretation Comments Lipase (test code = 3040-3) 12 8-78 [facility] HospitalHemoglobin A1c Blhpqxw0916-68-92 08:47:00 * Test Item Value Reference Range Interpretation Comments Hemoglobin A1c Percent (test code = Hemoglobin A1c Percent) 6.5 4.0-7.0 [facility] HospitalKNEE LEFT 1-2 [id number] 08:35:00 [facility] [address] [address] Patient Name: JOEL BENITEZ MR #: [id number] : 1955 Age/Sex: 63/F Req #: [id number] Adm Physician: RISHI GRAVES MD Ordered by: Yovani Langley MATERIAL HANDLER 2ND SHIFT Report #: [id number] Location: MED/SURG2 Room/Bed: 209 Procedure: [id number] D X/KNEE LEFT 1-2 VIEWS Exam Date: 05/18/19 Exam Time: 30 REPORT STATUS: Signed LEFT KNEE X-RAY - 2 VIEWS HISTORY: pain s/p fall [id number] 0 730 COMPARISON: None available. FINDINGS: Bones: No acute di splaced fracture on limited evaluation. Osseous alignment is within normal l imits. Joints: Moderate tricompartmental degenerative changes. Soft tissues: The soft tissues appear unremarkable. IMPRESSION: No acute displaced fractures on limited evaluation. Noted that the lateral tibial plat eau is not well visualized and a small nondisplaced fracture cannot be exclude d. Signed by: Dr. Luciana Mueller M.D. on 05/18/2019 8:37 AM Dictated By: LUCIANA MUELLER MD 6 Transcribed By: VICKY on 05/18/19836 COPY TO: YOVANI LANGLEY MATERIAL HANDLER [address] ABDOMEN/PELVIS [id number] 08:31:00 [place] [address] Patient Name: JOEL BENITEZ MR #: [id number] : 1955 Age/Sex: 63/F Req #: [id number] [facility] Physician: RISHI GRAVES MD Ordered by: Yovani Langley MATERIAL HANDLER 2ND SHIFT Report #: [id number] Location: MED/SURG Room/Bed: [facility] Procedure: [id number] C T/CT ABDOMEN/PELVIS WO Exam Date: 05/18/19 Exam Time : 30 REPORT STATUS: Signed EXA M: CT Abdomen and Pelvis WITHOUT contrast INDICATION: r/o abscess [id number] COMPARISON: None. TECHNIQUE: Abdomen and pelvis we re scanned utilizing a multidetector helical scanner from the lung base to the pubic symphysis without administration of IV contrast. Absence of intravenous contrast decreases sensitivity for detection of focal lesions and vascular pa thology. Coronal and sagittal reformations were obtained. Routine protocol was performed. IV CONTRAST: None. ORAL CONTRAST: None RADIATION DOSE: Total DLP: 1504 mGy*cm Estimated ef fective dose: (DLP x 0.015 x size factor) mSv COMPLICATIONS: None FINDINGS: LINES and TUBES: None. LOWER THORAX: Coronary artery c alcifications. HEPATOBILIARY: No focal hepatic lesions. No biliary deondre mary dilation. GALLBLADDER: No radio-opaque stones or sludge. No wall thic kening. SPLEEN: No splenomegaly. PANCREAS: No focal masses or ductal dilatation. ADRENALS: No adrenal nodules KIDNEYS/URETERS: No hy dronephrosis. No cystic or solid mass lesions. No stones. GI TRACT: No a bnormal distention, wall thickening, or evidence of bowel obstruction. A ppendix is not visualized. PELVIC ORGANS/BLADDER: Unremarkable. LYMPH NODES: No lymphadenopathy. VESSELS: Unremarkable. PERITONEUM / RETROPE RITONEUM: No free air or fluid. BONES: Pars defects at L5-S1 with associate d minimal anterolisthesis of L5 over S1 and moderate degenerative changes at L 5-S1. SOFT TISSUES: Extensive fat stranding with adjacent skin thickening i n the right gluteal subcutaneous fat without fluid collections or abscess. IMPRESSION: 1. Extensive cellulitis of the right gluteal sub cutaneous fat without drainable fluid collections or abscess. 2. No intr a-abdominal pelvic abscess or fluid collections. Signed by: Dr. Luciana Mueller M.D. on 05/18/2019 8:35 AM Dictated By: LUCIANA TREJO MD 4 [place] ranscribed By: VICKY on 05/18/19834 COPY TO: YOVANI LANGLEY NP
[2020-01-09] MEDS ORDERED: ONDANSETRON HCL INJ 2MG/ML 2ML 2 MG/ML VIAL IV ONE (14:38)
[2020-01-09] MEDS ORDERED: SODIUM CHLORIDE 0.9% 1000ML 1,000 ML IV STA (14:38)
--- NOTE | 2020-01-09 15:02 | Emergency Department Note ---
History of Present Illnes History of Present Illness Chief Complaint: Abdominal Complaints History of Present Illness This is a 64 year old female . Historian: Patient, Special Skills Officer/EMS Arrival Mode: [facility] [employer] Required: No Onset (how long ago): month(s) Radiation: abdomen Severity: severe Onset quality: gradual Duration (how long): month(s) Timing of current episode: constant Progression: worsening Chronicity: recurrent Relieving factors: none Exacerbating factors: none Associated symptoms: nausea/vomiting Treatments prior to arrival: none (BARBRA SERVIN NP) Past Medical/Family History Physician Review I have reviewed the patient's past medical and family history. Any updates have been documented here. (BARBRA SERVIN NP) Past Medical History Recent Fever: No Clinical Suspicion of Infectio: No New/Unexplained Change in Ment: No Past Medical History: Hypertension, Diabetes Other Medical History: ARTHRITIS POOR KIDNEY FUNCTION PER SON Past Surgical History: Cholecysctectomy, Appendectomy, Hysterectomy Other Surgery: BACK SURGERIES X2 (BARBRA SERVIN NP) Social History Smoking Cessation: Never Smoker Counseling Performed: No Alcohol Use: None Any Illegal Drug Use: No TB Exposure/Symptoms: No Physically hurt or threatened: No (BARBRA SERVIN NP) Other Last Tetanus: UNK Any Pre-Existing Lines (PICC,: No Is patient up to date on immun: Yes Last Flu: UTD Last Pneumovax: UTD (BARBRA SERVIN NP) Review of Systems Review of Systems Constitutional: no symptoms EENTM: no symptoms Cardiovascular: no symptoms Respiratory: no symptoms Gastrointestinal: abdominal pain, nausea, vomiting Genitourinary: dysuria Musculoskeletal: no symptoms Neurological: no symptoms Psychological: no symptoms Endocrine: no symptoms Hematological/Lymphatic: no symptoms Review of other systems All other systems reviewed and negative. (BARBRA SERVIN NP) Physical Exam Related Data Allergies: Coded Allergies: No Known Allergies (Unverified , 05/17/19) Triage Vital Signs Vital Signs Date Time Temp Pulse Resp B/P (MAP) Pulse Ox O2 Delivery O2 Flow Rate FiO2 01/09/20 14:19 98.6 57 18 134/78 97 (BARBRA SERVIN NP) Physical Exam CONSTITUTIONAL Constitutional: well-developed, well-nourished HENT HENT: normocephalic, atraumatic, oropharynx clear/moist, nose normal HENT L/R: left ext ear normal, right ext ear normal EYES Eyes: PERRL, conjunctivae normal NECK Neck: ROM normal PULMONARY Pulmonary: effort normal, breath sounds normal CARDIOVASCULAR Cardiovascular: regular rhythm, heart sounds normal, capillary refill normal, normal rate GASTROINTESTINAL Abdominal: soft, nontender, bowel sounds normal, tender (mid to upper abd ) GENITOURINARY Genitourinary: exam deferred SKIN Skin: warm, dry MUSCULOSKELETAL Musculoskeletal: ROM normal NEUROLOGICAL Neurological: alert, oriented x 3, no gross motor or sensory deficits PSYCHOLOGICAL Psychological: mood/affect normal, judgement normal (BARBRA SERVIN NP) Results Laboratory Laboratory Laboratory Tests Test 01/09/20 14:50 Lab results reviewed: Yes (BARBRA SERVIN NP) Imaging Imaging results reviewed: Yes Impressions COMPARISON: CT abdomen pelvis of 05/18/2019 TECHNIQUE: Abdomen and pelvis were scanned utilizing a multidetector helical scanner from the lung base to the pubic symphysis without administration of IV contrast. Coronal and sagittal reformations were obtained. IV CONTRAST: None ORAL CONTRAST: Gastrografin COMPLICATIONS: None RADIATION DOSE: Total DLP: 1346 mGy*cm Dose modulation, iterative reconstruction, and/or weight based adjustment of the mA/kV was utilized to reduce the radiation dose to as low as reasonably achievable. FINDINGS: LOWER THORAX: Bibasilar dependent subsegmental atelectasis. Trace right pleural effusion. HEPATOBILIARY: Nodular liver surface contour compatible with hepatic cirrhosis. No focal liver lesion. SPLEEN: Splenomegaly to 17 cm. PANCREAS: No focal masses or ductal dilatation. ADRENALS: No adrenal nodules. KIDNEYS/URETERS: No hydronephrosis, stones, or solid mass lesions. PELVIC ORGANS/BLADDER: Unremarkable. PERITONEUM / RETROPERITONEUM: Trace abdominal ascites. LYMPH NODES: No lymphadenopathy. VESSELS: Scattered atherosclerotic calcifications of the nonaneurysmal abdominal aorta and major branches. GI TRACT: Diverticulosis without CT evidence of diverticulitis. No abnormal bowel thickening. No bowel obstruction. BONES AND SOFT TISSUES: No acute osseous injury. No suspicious lytic or blastic lesions. Right gluteal injection granulomas. IMPRESSION: No acute findings in the abdomen or pelvis. Hepatic cirrhosis and splenomegaly. Trace abdominal ascites. (BARBRA SERVIN NP) Procedures 12 Lead ECG Interpretation Date: January 09, 2020 Time: 14:53 Prior STRAW HAT PRESSER tracings: reviewed Rhythm: sinus rhythm Clinical Impression: normal ECG (BARBRA SERVIN NP) Critical Care Time Subsequent provider I assumed direction of critical care for this patient from another provider of my specialty. (BARBRA SERVIN NP) Assessment & Plan Reassessment Reassessment 1521- Patient states that the abd pain started in Sep and d/t the virus did not follow up with her doctor. Patient states that she did go to [facility] 2 months ago and was worked up, then patient states she came here last year...patient seems to change her story. Patient tender over mid to upper abd. Patient also states she last walked 3 months ago. States she has N/V and had vomited 3X in past 24 hours. (BARBRA SERVIN NP) Assessment & Plan Final Impression: (1) Morbidly obese (2) Elevated troponin (3) Chronic anemia (4) Chronic renal disease, stage III (5) CHF (congestive heart failure) Assessment & Plan PATIENT PRESENTS WITH ABD PAIN- BLOOD WORK, UA, CARDIAC ENZYMES, CT ABD/PELVIS TO R/O DIVERTICULOSIS,DIVERTICULITIS, PANCREATITIS, [place], ELEVATED ENZYMES, PNEUMONIA, CHF ZOFRAN FOR NAUSEA 1654- ALL RESULTS DISCUSSED WITH DR PRESTON WHO IS SPEAKING TO DR ONEILL.- WILL ADMIT (BARBRA SERVIN NP) Depart Disposition: ADMITTED Last Vital Signs Date Time Temp Pulse Resp B/P (MAP) Pulse Ox O2 Delivery O2 Flow Rate FiO2 01/09/20 14:29 66 18 147/66 94 01/09/20 14:19 98.6 (BARBRA SERVIN NP) Home Meds Active Scripts Doxycycline Hyclate (DOXYCYCLINE HYCLATE) 100 Mg Capsule, 100 MG PO Q12HR, #28 Prov:YOVANI LANGLEY NP 05/25/19 Diclofenac Sodium (VOLTAREN) 100 Gm Gel..gram., 0 GM TP QID, #2 THERAPEUTICALLY SUBSTITUTED WITH IBUPROFEN 600MG Prov:YOVANI LANGLEY NP 05/25/19 Acetaminophen With Codeine (TYLENOL WITH CODEINE #3 TABLET) 1 Each Tablet, 300 MG PO Q8HR PRN for PAIN, #30 TAB Prov:YOVANI LANGLEY NP 05/25/19 Amlodipine Besylate (AMLODIPINE BESYLATE) 10 Mg Tablet, 10 MG PO DAILY, #30 TAB Prov:YOVANI LANGLEY NP 05/25/19 Reported Medications Insulin Lisp Protam/Lisp Human (HUMALOG MIX 75-25 VIAL) 100 Units/Ml Ml 05/18/19 Atorvastatin Calcium (ATORVASTATIN CALCIUM) 20 Mg Tablet, 80 MG PO HS, #30 TAB 05/17/19 Carvedilol (CARVEDILOL) 12.5 Mg Tablet, 12.5 MG PO DAILY, #60 TAB 05/17/19 Clonidine Hcl (CLONIDINE HCL) 0.1 Mg Tablet, 1 TAB PO TID, #60 TAB 05/17/19 Verapamil Hcl (VERAPAMIL ER) 120 Mg Cap24h.pel, 240 BID 05/17/19 Furosemide (FUROSEMIDE) 40 Mg Tablet, 40 MG PO Daily, #30 TAB 05/17/19 Fluoxetine Hcl (FLUOXETINE HCL) 10 Mg Capsule, 10 MG PO DAILY, #30 CAP 05/17/19 Trazodone Hcl (TRAZODONE HCL) 50 Mg Tablet, 50 MG PO DAILY, #30 TAB 05/17/19 Medications in the ED Sodium Chloride 1,000 ml @ 0 mls/hr Q0M STAT IV ; Start 01/09/20 at 14:38; Stop 01/09/20 at 14:44; Status DC Ondansetron HCl 4 mg ONCE ONCE IV ; Start 01/09/20 at 14:38; Stop 01/09/20 at 14:53; Status DC (BARBRA SERVIN NP) Physician Attestation Provider Attestation The patient's history, exam findings, diagnostics, and a summary of any interventions or procedures was reviewed in detail with our LINA. I personally interviewed and examined the patient, and I have reviewed and agree with the HPI andexam. Pt came for abd pain. My personal exam shows pt is morbidly obese, mod tenderness subrapubic area without R/G, NABS, Lungs- decr BS's throughout, CV- RRR, 3+ LE edema bilat LE's. I confirm the diagnosis as documented by the LINA. I have reviewed and agree with the care plan articulated in the disposition section. ECG unremarkable, no ST changes. Pt has marked cardiomegaly on CXR. I ordered STAT ECHO because Trop is mildly elevated which could be due to CKD but need to r/o pericardial effusion. I spoke with Dr Liu who agrees with care, will see pt. I spoke with Dr Oneill for admission (TONIO PRESTON MD) BARBRA SERVIN NP January 09, 2020 15:02 TONIO PRESTON MD January 09, 2020 17:08
[2020-01-09 15:03] LABS: BASOPHILS % 0.5 % (0.0-1.0); EOSINOPHILS # (AUTO) 0.2 (0.0-0.4); EOSINOPHILS % 2.7 % (0.0-6.0); HEMATOCRIT 26.4 % (34.2-44.1); HEMOGLOBIN 7.8 g/dL (12.0-16.0); LYMPHOCYTES # (AUTO) 0.9 (1.0-3.2); LYMPHOCYTES % 11.9 % (18.0-39.1); MEAN CORPUSCULAR HEMOGLOBIN 26.6 pg (28-32); MEAN CORPUSCULAR HGB CONC 29.5 g/dL (31-35); MEAN CORPUSCULAR VOLUME 90.1 fL (81-99); MONOCYTES # (AUTO) 0.9 (0.2-0.8); MONOCYTES % 12.3 % (4.4-11.3); NEUTROPHILS # (AUTO) 5.4 (2.1-6.9); NEUTROPHILS % 72.2 % (38.7-80.0); PLATELET COUNT 164 x10e3/uL (140-360); RED BLOOD COUNT 2.93 x10e6/uL (3.6-5.1); RED CELL DISTRIBUTION WIDTH 17.4 % (11.7-14.4)
[2020-01-09 15:17] LABS: ALBUMIN 3.4 g/dL (3.5-5.0); ANION GAP 9.5 mmol/L (8-16); CALCIUM 8.9 mg/dL (8.4-10.2); CREATININE, SERUM 1.98 mg/dL (0.57-1.11); POTASSIUM 4.5 mmol/L (3.5-5.1)
[2020-01-09] MEDS ORDERED: DIATRIZOATE MEGL/DIATRIZOA SOD 30 ML BTL PO ONE (15:18)
[2020-01-09 15:22] LABS: INR 1.04; PROTHROMBIN TIME 14.2 seconds (11.9-14.5)
[2020-01-09 15:23] LABS: PARTIAL THROMBOPLASTIN TIME 33.9 seconds (23.8-35.5)
[2020-01-09 15:25] LABS: CREATINE KINASE MB 2.6 ng/mL (0-5.0)
--- NOTE | 2020-01-09 15:29 | Diagnostic Imaging Report ---
EXAMINATION: CHEST SINGLE (PORTABLE) INDICATION: Abdominal pain COMPARISON: Chest radiograph of 05/22/2019 FINDINGS: LINES/TUBES:None LUNGS:The lungs are moderately inflated. No definite focal consolidation. PLEURA:No pleural effusion or pneumothorax. MEDIASTINUM:Unchanged severe cardiomegaly. BONES/SOFT TISSUES:No acute osseous injury. ABDOMEN:No free air under the diaphragm. IMPRESSION: Severe cardiomegaly. No definite focal consolidation. Signed by: Abdullahi Townsend MD on 01/09/2020 3:25 PM
[2020-01-09 15:49] LABS: CLARITY,URINE SL CLOUDY (CLEAR); COLOR,URINE YELLOW (YELLOW); KETONES,URINE NEGATIVE (NEGATIVE); LEUKOCYTE ESTERASE ,URINE NEGATIVE (NEGATIVE); NITRITE,URINE NEGATIVE (NEGATIVE); PROTEIN,URINE DIPSTICK 1+ (NEGATIVE)
[2020-01-09 15:50] LABS: BILIRUBIN,URINE NEGATIVE (NEGATIVE); URINE UROBILINOGEN 0.2 mg/dL (0.2 - 1)
[2020-01-09 16:02] LABS: BACTERIA,URINE MANY /HPF; EPITHELIAL CELLS,URINE MODERATE /LPF; HYALINE CASTS 0-1 (0-1)
--- NOTE | 2020-01-09 16:11 | Diagnostic Imaging Report ---
EXAM: CT Abdomen and Pelvis WITHOUT intravenous contrast INDICATION: Abdominal pain COMPARISON: CT abdomen pelvis of 05/18/2019 TECHNIQUE: Abdomen and pelvis were scanned utilizing a multidetector helical scanner from the lung base to the pubic symphysis without administration of IV contrast. Coronal and sagittal reformations were obtained. IV CONTRAST: None ORAL CONTRAST: Gastrografin COMPLICATIONS: None RADIATION DOSE: Total DLP: 1346 mGy*cm Dose modulation, iterative reconstruction, and/or weight based adjustment of the mA/kV was utilized to reduce the radiation dose to as low as reasonably achievable. FINDINGS: LOWER THORAX: Bibasilar dependent subsegmental atelectasis. Trace right pleural effusion. HEPATOBILIARY: Nodular liver surface contour compatible with hepatic cirrhosis. No focal liver lesion. SPLEEN: Splenomegaly to 17 cm. PANCREAS: No focal masses or ductal dilatation. ADRENALS: No adrenal nodules. KIDNEYS/URETERS: No hydronephrosis, stones, or solid mass lesions. PELVIC ORGANS/BLADDER: Unremarkable. PERITONEUM / RETROPERITONEUM: Trace abdominal ascites. LYMPH NODES: No lymphadenopathy. VESSELS: Scattered atherosclerotic calcifications of the nonaneurysmal abdominal aorta and major branches. GI TRACT: Diverticulosis without CT evidence of diverticulitis. No abnormal bowel thickening. No bowel obstruction. BONES AND SOFT TISSUES: No acute osseous injury. No suspicious lytic or blastic lesions. Right gluteal injection granulomas. IMPRESSION: No acute findings in the abdomen or pelvis. Hepatic cirrhosis and splenomegaly. Trace abdominal ascites. Signed by: Abdullahi Townsend MD on 01/09/2020 4:08 PM
--- OUTSIDE RECORDS SUMMARY | 2020-01-09 17:12 | XMS REPORT | Clinical Summary ---
Author Author [facility] Organization [facility] Address Unknown Phone Unavailable Care Team Providers Care Hat Blocker Name Role Phone PCP Unavailable Allergies Comments [...] twice syringe-needleIndications daily. . : Diabetes mellitus FAROESE LABEL.. Active traZODone (DESYREL) 50 mg Take 1 tablet 30 tablet 1 tabletIndications: by mouth 4 Depression every evening (schedule appointment). FAROESE LABEL.. Active furosemide (LASIX) 40 mg 0 [...] Relation Name Comments Diabetes Father Heart Father [place] Hypertension Father Arthritis Mother Diabetes Mother Heart [...] Effective Phone Address Plan / Dates Group [facility] xxxxxxxxx 2017- [phone] [employer] [id number] [place] [address] Advance Directives Date Inactivated Comments Code Status Date Activated 01/12/2018 7:16 PM Full Code 01/10/2018 9:01 AM 08/18/2017 7:06 PM Full Code 08/17/2017 11:50 PM 03/24/2017 5:36 PM Full Code 03/22/2017 9:07 AM 03/22/2017 9:07 AM Discussed with the patient Allow Natural 03/21/2017 12:45 PM 08/20/2013 5:58 PM Full Code 08/16/2013 12:49 PM
--- OUTSIDE RECORDS SUMMARY | 2020-01-09 17:13 | XMS REPORT ---
Author Author [facility] t Organization [facility] Address [address] [place] [address] Phone Unavailable Care Team Providers Care Proofing Machine Operator Name Role Phone RISHI GRAVES MD PCP Ashanti PRESTON Attphys Unavailable RISHI GRAVES Attphys Unavailable RISHI GRAVES Admphys Unavailable Payers Payer Name Policy Type Policy Number Effective Date Expiration Date [facility] [id number] 2018 00:00 :00 [facility] Problems Condition Name Condition Details Condition Category Status Onset Date Resolution Date Last Treatment Date Treating Clinician Comments Source Nausea & vomiting Nausea & vomiting Disease Active 2018-01-12 00:00:00 [facility] Fall Fall Disease Active 2018-01-10 00:00:00 [facility] Urinary tract infection Urinary tract infection Disease Active 2018-01-10 00:00:00 [facility] Acute pyelonephritis Acute pyelonephritis Disease Active 00:00:00 [facility] Disorientation Disorientation Disease Active 2018-01-09 00:00:00 [facility] Constipation Constipation Disease Active 2013-08-20 00:00:00 [facility] OA (osteoarthritis) OA (osteoarthritis) Disease Active 2013-08-20 00:00 :00 [facility] Diabetes mellitus Diabetes mellitus Disease Active 2013-08-20 00:00:00 [facility] Depression Depression Disease Active 2013-08-20 00:00:00 [facility] HTN (hypertension) HTN (hypertension) Disease Active 2013-08-20 00:00:0 0 [facility] PNA (pneumonia) PNA (pneumonia) Disease Active 2013-08-20 00:00:00 [facility] Cough Cough Disease Active 2013-08-16 00:00:00 [facility] Lower extremity pain, bilateral Lower extremity pain, bilateral Dis ease Active 2013-08-16 00:00:00 [facility] Fever Fever Disease Active 2013-08-16 00:00:00 [facility] Renal insufficiency Renal insufficiency Disease Active 2013-08-16 00:00 :00 [facility] Abdominal wall cellulitis Abdominal wall cellulitis Disease Active [facility] 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, without long-term current use of insulin 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, without long-term current use of insulin Disease Active [facility] Morbid obesity with alveolar hypoventilation Morbid ob esity with alveolar hypoventilation Disease Active [facility] Essential hypertension Essential hypertension Disease Active [facility] Abnormal stress test Abnormal stress test Disease Active [facility] Pleuritic chest pain Pleuritic chest pain Disease Active [facility] Chronic midline low back pain Chronic midline low back pain Disease Active [facility] Acute midline thoracic back pain Acute midline thoracic back richard n Disease Active [facility] KIM (acute kidney injury) KMI (acute kidney injury) Disease Active [facility] Allergies, Adverse Reactions, Alerts Allergy Name Allergy Type Status Severity Reaction(s) Onset Date Inacti ve Date Treating Clinician Comments Source Aspirin Propensity to adverse reactions to drug Active Itching 2013-08-15 00:00:00 [facility] Family History Family Member Diagnosis Comments Start Date Stop Date Source Natural father [facility] Natural father Heart [facility] Natural father Hypertension [facility] Natural mother Arthritis [facility] Natural mother Diabetes [facility] Natural mother Heart [facility] Natural mother Hypertension [facility] Natural sister Hypertension [facility] Social History Social Habit Start Date Stop Date Quantity Comments Source Sex Assigned At [facility] Alcohol intake 2019-01-16 00:00:00 2019-01-16 00:00:00 [facility] SDOH Food Worry 2017-04-21 00:00:00 2017-04-21 00:00:00 1 [facility] Food Scarcity 2017-04-21 00:00:00 2017-04-21 00:00:00 1 [facility] Smoking Status Start Date Stop Date Source Never smoker [facility] Medications Ordered Medication Name Filled Medication Name Start Date Stop Da te Current Medication? Ordering Clinician Indication Dosage Frequency Signature (SIG) Comments Components Source Acetaminophen With Codeine (Tylenol With Codeine #3 Ta blet) 1 Each Tablet Acetaminophen With Codeine (Tylenol With Codeine #3 Tablet) 1 Each Tablet 2019-05-25 00:00:00 Yes Yovani M Varina Program Therapist 300 Every 8 Hours as needed for Pain [facility] Amlodipine Besylate 10 Mg Tablet Amlodipine Besylate 10 Mg T ablet 2019-05-25 00:00:00 Yes Yovani M Varina Program Therapist 10 Daily [facility] Diclofenac Sodium (Voltaren) 100 Gm Gel..gram. Diclofe nac Sodium (Voltaren) 100 Gm Gel..gram. 2019-05-25 00:00:00 Yes Yovani M Varina Program Therapist 0 Four Times Daily [facility] Doxycycline Hyclate 100 Mg Capsule Doxycycline Hyclate 100 M g Capsule 2019-05-25 00:00:00 Yes Yovani M Varina Program Therapist 100 Every 12 Hours [facility] FLUOXETINE HCL 10 mg tablet 2018-01-12 17:15:58 Yes 20mg QD Take 20 mg by mouth daily. [facility] acetaminophen (TYLENOL) 500 mg tablet 2018-01-12 00:00:00 Yes OA (osteoarthritis) 500mg Take 1 tablet by chidi th every 8 hours as needed for Pain. [facility] carvedilol (COREG) 12.5 mg tablet 2018-01-12 00:00:00 Yes Essential hypertension 12.5mg Take 1 tablet by mouth every 12 hours. [facility] insulin 70/30 NPH - REGULAR (HUMULIN 70/ 30, NOVOLIN 70/30) 100 unit/mL injection 2018-01-12 00:00:00 Yes Type 2 diabetes mellitus with other specified complication, with long-term current use of insulin 10 units subcutaneous every 12 hours. [facility] nitroGLYCERIN (NITROSTAT) 0.4 mg sublingual tablet 2017-08 00:00:00 Yes Stable angina Dissolve 1 table t under the tongue every 5 minutes as needed, up to 3 times. If chest pain persists, call 911. [facility] INSULIN SYRINGE 0.5mL 30GX5/16" (ULTRA COMFORT) syringe-need le 2017-04-21 00:00:00 Yes Q.5D Use to inj ect medication 2 times daily. Use a new syringe each time. [facility] furosemide (LASIX) 40 mg tablet 2017-04-19 00:00:00 Yes [facility] traZODone (DESYREL) 50 mg tablet 2014-03-12 00:00:00 Yes Depression 50mg Take 1 tablet by mouth every evening (schedule appoint ment). SRI LANKAN LABEL.. [facility] naproxen (NAPROSYN) 500 mg tablet 2013-09-20 00:00:00 Yes OA (osteoarthritis) 500mg Take 1 tablet by chidi th 2 times daily as needed ((for milder pain)). [facility] INSULIN SYRINGE 1mL/30GX5/16" (INSULIN SYRINGE) syringe-need le 2013-09-20 00:00:00 Yes Diabetes mellitus Us e to administer insulin twice daily. . SRI LANKAN LABEL.. [facility] Atorvastatin Calcium 20 Mg Tablet Atorvastatin Calcium 20 Mg Tablet Yes 80 Bedtime [facility] Carvedilol 12.5 Mg Tablet Carvedilol 12.5 Mg Tablet Yes 12.5 Daily [facility] Clonidine Hcl 0.1 Mg Tablet Clonidine Hcl 0.1 Mg Tablet Yes 1 Three Times A Day [facility] Fluoxetine Hcl 10 Mg Capsule Fluoxetine Hcl 10 Mg Capsule Y es 10 Daily [facility] Furosemide 40 Mg Tablet Furosemide 40 Mg Tablet Yes 40 Daily [facility] Insulin Lisp Protam/Lisp Human (Humalog Mix 75-25 Vial ) 100 Units/Ml Ml Insulin Lisp Protam/Lisp Human (Humalog Mix 75-25 Vial) 100 Units/Ml Ml Yes [facility] Trazodone Hcl 50 Mg Tablet Trazodone Hcl [...] Vaccine, Seasonal, Injectable 2017-06-27 00:00:0 0 Completed [facility] PPV 23 Pneumococcal Polysaccaride 2013-08-16 00:00:00 Comp leted [facility] Influenza Vac (Fluarix) 2013-08-16 00:00:00 Completed [facility] Procedures Procedure Date / Time Performed Performing Clinician [facility] e Ultrasound, renal 2019-05-20 00:00:00 [facility] Ultrasound guidance for vascular access 2019-05-20 00:00:00 [facility] CT of abdomen and pelvis without contrast 2019-05-18 00:00:00 AM YOVANI BISHOP [facility] Plan of Care Planned Activity Planned Date Details Comments Source Future Scheduled Test 2020-05-14 00:00:00 IMM Influenza Seas onal May to October (>/= 19 yrs) [code = IMM Influenza Seasonal May to October (>/= 19 yrs)] [facility] Scheduled Test 2019-01-11 00:00:00 DM Microalbumin Ur ine Scrn (Yearly) [code = DM Microalbumin Urine Scrn (Yearly)] [facility] Future Scheduled Test 2019-01-10 00:00:00 DM HGBA1C (Yearly) [code = DM HGBA1C (Yearly)] [facility] Scheduled Test 2018 00:00:00 IMM Pneumococcal A ge 65 and Up [code = IMM Pneumococcal Age 65 and Up] [facility] Scheduled Test 2018-04-26 00:00:00 Colorectal Cancer Scrn Annual (FIT/FOBT) Age 50 to 75 [code = Colorectal Cancer Scrn Annual (FIT/FOBT) Age 50 to 75] [facility] Scheduled Test 1993 00:00:00 Breast Cancer Scrn (Yearly) [code = Breast Cancer Scrn (Yearly)] [facility] Scheduled Test 1971 00:00:00 DM Foot Exam (Year ly) [code = DM Foot Exam (Yearly)] [facility] Scheduled Test 1971 00:00:00 DM Retinal Exam (Y early) [code = DM Retinal Exam (Yearly)] [facility] Encounters Start Date/Time End Date/Time Encounter Type Admission Type [facility] Care Department Encounter ID Source 2019-05-17 21:15:00 2019-05-25 13:15:00 Discharged Inpatient 1 RISHI GRAVES [facility] [id number] [facility] 2018-01-22 00:00:00 2018-01-22 00:00:00 Outpatient [facility] [id number] [facility] 2018-01-19 00:00:00 2018-01-19 00:00:00 Outpatient [facility] [id number] [facility] 2018-01-10 09:57:35 2018-01-10 09:57:35 Outpatient [facility] [id number] [facility] 2018-01-10 05:48:56 2018-01-10 05:48:56 Emergency [facility] [id number] [facility] 2018-01-10 00:16:25 2018-01-10 00:16:25 Emergency [facility] [id number] [facility] 2018-01-10 00:00:00 2018-01-10 00:00:00 Outpatient [facility] [id number] [facility] 2018-01-09 22:42:35 2018-01-09 22:42:35 Emergency [facility] [id number] [facility] 2018-01-09 17:48:24 2018-01-09 17:48:24 Emergency [facility] [id number] [facility] 2018-01-09 16:13:33 2018-01-09 16:13:[address] [facility] [id number] [facility] 2017-09-11 06:36:22 2017-09-11 06:36:22 Outpatient [facility] [id number] [facility] 2017-09-04 11:29:25 2017-09-04 11:29:25 Outpatient [facility] [id number] [facility] 2017-08-21 07:49:10 2017-08-21 07:49:10 Outpatient [facility] [id number] [facility] 2017-08-18 04:43:03 2017-08-18 04:43:03 Outpatient [facility] [id number] [facility] 2017-08-18 00:00:00 2017-08-18 00:00:00 Outpatient [facility] [id number] [facility] 2017-08-17 19:39:58 2017-08-17 19:39:58 Emergency [facility] [id number] [facility] 2017-08-17 13:54:32 2017-08-17 13:54:[address] [facility] [id number] [facility] 2017-08-01 10:20:21 2017-08-01 10:20:21 Outpatient [facility] [id number] [facility] 2017-07-05 08:47:52 2017-07-05 08:47:52 Outpatient [facility] [id number] [facility] 2017-06-27 09:29:44 2017-06-27 09:29:44 Outpatient [facility] [id number] [facility] 2017-05-24 00:00:00 2017-05-24 00:00:00 Outpatient [facility] [id number] [facility] 2017-04-26 14:49:01 2017-04-26 14:49:01 Outpatient [facility] [id number] [facility] 2017-04-24 00:00:00 2017-04-24 00:00:00 Outpatient [facility] [id number] [facility] 2017-04-21 12:43:26 2017-04-21 12:43:26 Outpatient [facility] [id number] [facility] 2017-04-21 11:15:57 2017-04-21 11:15:57 Outpatient [facility] [id number] [facility] 2017-03-22 11:18:55 2017-03-22 11:18:55 Outpatient [facility] [id number] [facility] 2017-03-22 06:27:32 2017-03-22 06:27:32 Outpatient [facility] [id number] [facility] 2017-03-21 15:47:18 2017-03-21 15:47:18 Outpatient [facility] [id number] [facility] 2017-03-21 13:59:59 2017-03-21 13:59:59 Outpatient [facility] [id number] [facility] 2017-03-21 06:17:34 2017-03-21 06:17:34 Emergency [facility] [id number] [facility] 2017-03-21 04:04:37 2017-03-21 04:04:[address] [facility] [id number] [facility] 2017-03-20 23:59:31 2017-03-20 23:59:31 Emergency [facility] [id number] [facility] Results Test Description Test Time Test Comments Results Result Comments Source CT ABDOMEN/PELVIS WO 2020-01-09 16:03:00 [place] [address] Patient Name: JOEL BENITEZ MR #: [id number] : 1955 Age/Sex: 64/F Req #: [id number] Adm Physician: Ordered by: BARBRA SERVIN INFORMATION MANAGEMENT SPECIALIST Report #: [id number] Location: ER Room/Bed: Procedure: [id number] CT/CT ABDOMEN/PELVIS WO Exam Date: 01/09/20 Exam Time: 1530 REPORT STATUS: Signed EXAM: CT Abdomen and Pelvis WITHOUT intravenous contrast INDICATION: Abdominal pain COMPARISON: CT abdomen pelvis of 05/18/2019 TECHNIQUE: Abdomen and pelvis were scanned utilizing a multidetector helical scanner from the lung base to the pubic sym physis without administration of IV contrast. Coronal and sagittal reformations were obtained. IV CONTRAST: None ORAL CONTRAST: Gastrografin COMPLICATIONS: None RADIATION DOSE: Total DLP: 1346 mGy*cm Dose modulation, iterative reconstruction, and/or weight based adjustment of the mA/kV was utilized to reduce the radiation dose to as low as reasonably achievable. FINDINGS: LOWER THORAX: Bibasilar dependent subsegmental atelectasis. Trace right pleural effusion. HEPATOBILIARY: Nodular liver surface contour compatible with hepatic cirrhosis. No focal liver lesion. SPLEEN: Splenomegaly to 17 cm. PANCREAS: No focal masses or ductal dilatation. ADRENALS: No adrenal nodules. KIDNEYS/URETERS: No hydronephrosis, stones, or solid mass lesions. PELVIC ORGANS/BLADDER: Unremarkable. PERITONEUM / RETROPERITONEUM: Trace abdominal ascites. LYMPH NODES: No lymphadenopathy. VESSELS: Scattered atherosclerotic calcifications of the nonaneurysmal abdominal aorta and major branches. GI TRACT: Diverticulosis without CT evidence of diverticulitis. No abnormal bowel thickening. No bowel obstruction. BONES AND SOFT TISSUES: No acute osseous injury. No suspicious lytic or blastic lesions. Right gluteal injection granulomas. IMPRESSION: No acute findings in the abdomen or pelvis. Hepatic cirrhosis and splenomegaly. Trace abdominal ascites. Signed by: Martir Sepulveda MD on 01/09/2020 4:08 PM Dictated By: MARTIR SEPULVEDA MD 07 Transcribed By: VICKY on 01/09/201607 COPY TO: BARBRA SERVIN NP CHEST SINGLE (PORTABLE) 2020-01-09 15:24:00 [place] [address] Patient Name: JOEL BENITEZ MR #: [id number] : 1955 Age/Sex: 64/F Req #: [id number] Adm Physician: Ordered by: BARBRA SERVIN NP Report #: [id number] Location: ER Room/Bed: Procedure: [id number] DX/CHEST SINGLE (PORTABLE) Exam Date: 01/09/20 Exam Time: 1511 REPORT STATUS: Signed EXAMINATION: CHEST SINGLE (PORTABLE) INDICATION: Abdominal pain COMPARISON: Chest radiograph of 05/22/2019 FINDINGS: LINES/TUBES:None LUNGS:The lungs are moderately inflated. No definite focal consolidation. PLEURA:No pleural effusion or pneumothorax. MEDIASTINUM:Unchanged severe cardiomegaly. BONES/SOFT TISSUES:No acute osseous injury. ABDOMEN:No free air under the diaphragm. IMPRESSION: Severe cardiomegaly. No definite focal consolidation. Signed by: Martir Sepulveda MD on 01/09/2020 3:25 PM Dictated By: MARTIR SEPULVEDA MD 152 Transcribed By: VICKY on 01/09/205 COPY TO: BARBRA SERVIN NP Lactic Acid, Plasma (Venous) 2020-01-07 05:50:12 Test Item Lactic Acid, Plasma (Venous) (test code = Lactic Acid, Plasma (Venous)) 0.4 mmol/L 0.5-1.9 L Urinalysis with Culture, if [id number] 05:23:00* Test Item Value Reference Range Interpretation [...] Micro Ind?) Not Indicated Not Indicat ed [id number] 22:38:39* Test Item Value Reference Range Interpretation Comments RBC Morph (test code = RBC Morph) As Indicated Normal A Anisocyte (test code = Anisocyte) 1+ None Hypochromia (test code = Hypochromia) 1+ None Seen Plt Estimation (test code = Plt Estimation) Normal Normal Comprehensive Metabolic [id number] 22:31:49* Test Item Value Reference Range Interpretation [...] = A/G Ratio) 1.3 ratio N Lipase [id number] 22:31:49* Test Item Value Reference Range Interpretation Comments Lipase Level (test code = Lipase Level) 14 U/L 13-60 Comprehensive Metabolic [id number] 22:31:49* Test Item Value Reference Range Interpretation [...] is not provided, and the patient is -[place], multiply by 1.212. If sex is not [...] the National Kidney Foundation, http://nkdep.nih.gov Comprehensive Metabolic [id number] 22:31:49* Test Item Value Reference Range Interpretation [...] is not provided, and the patient is -[place], multiply by 1.212. If sex is not [...] is not provided, and the patient is -[place], multiply by 1.212. If sex is not [...] Kidney Foundation, http://nkdep.nih.gov Complete Blood Count with Aditvroqnlog3882-71-05 22:22:34* Test Item Value Reference Range Interpretation [...] code = IPF) 0 % N Automated [id number] 22:22:34* Test Item Value Reference Range Interpretation Comments Neutro Auto (test code = Neutro Auto) 72.1 % 36.0-70.0 H Lymph Auto (test code = Lymph Auto) 9.7 % 12.0-44.0 L [place] Auto (test code = [place] Auto) 11.1 % 0.0-11.0 H Eos, Auto (test code = Eos, Auto) 6.1 % 0.0-7.0 Basophil Auto (test code = Basophil Auto) 0.6 % 0.0-2.0 Neutro Absolute (test code = Neutro Absolute) 5.6 x10 1.6-7.4 Lymph Absolute (test code = Lymph Absolute) .75 x10 .50-4.60 [place] Absolute (test code = [place] Absolute) .86 x10 .00-1.20 Eos Absolute (test code = Eos Absolute) 0.47 x10 0.00-0.74 Baso Absolute (test code = Baso Absolute) 0.05 x10 0.00-0.21 IG [id number] 22:22:34* Test Item Value Reference Range Interpretation Comments IG (test code = IG) 0.4 % 0.0-5.0 IG Abs (test code = IG Abs) 0 x10 N Bedside [id number] 11:41:00* Test Item Value Reference Range Interpretation Comments Bedside Glucose (test code = 27726-3) 202 70-120 H Meter ID: [id number] [facility] 2019-05-25 03:33:00* Test Item Value Reference Range Interpretation Comments Sodium Level (test code = 2951-2) 138 136-145 [facility] [id number] 03:33:00* Test Item Value Reference Range Interpretation Comments Potassium Level (test code = 2823-3) 4.6 3.5-5.1 [facility] HospitalChloride [id number] 03:33:00* Test Item Value Reference Range Interpretation Comments Chloride Level (test code = 2075-0) 99 98-107 [facility] HospitalCarbon Dioxide [id number] 03:33:00* Test Item Value Reference Range Interpretation Comments Carbon Dioxide Level (test code = 2028-9) 29 22-29 [facility] HospitalAnion [id number] 03:33:00* Test Item Value Reference Range Interpretation Comments Anion Gap (test code = 07179-1) 14.6 8-16 [facility] HospitalBlood Urea Dbezsbbz7575-65-42 03:33:00* Test Item Value Reference Range Interpretation Comments Blood Urea Nitrogen (test code = 3094-0) 50 7-26 H [facility] HospitalCreatinine2019-10-12 03:33:00* Test Item Value Reference Range Interpretation Comments Creatinine (test code = 2160-0) 1.98 0.57-1.11 H [facility] HospitalBUN/Creatinine [id number] 03:33:00* Test Item Value Reference Range Interpretation Comments BUN/Creatinine Ratio (test code = 3097-3) 25 6-25 [facility] HospitalEstimat Glomerular Filtration Rate 2019-05-25 03:33:00* Test Item Value Reference Range Interpretation Comments Estimat Glomerular Filtration Rate (test code = 341677751) 25 >60 L Ranges were taken from the National Kidney Disease Education Program and the [facility] Kidney Foundation literature.Reference ranges:60 or greater: Ybfbkp37-96 ( for 3 consecutive months): Chronic kidney disease 15 or less: Kidney failureTexas Health Arlington Memorial HospitalGlucose Jjhbo0775-15-15 03:33:00* Test Item Value Reference Range Interpretation Comments Glucose Level (test code = ZHR6416) 176 74-118 H [facility] HospitalCalcium [id number] 03:33:00* Test Item Value Reference Range Interpretation Comments Calcium Level (test code = 38167-3) 10.2 8.4-10.2 [facility] HospitalWhite Blood Wexoi5224-25-06 03:32:00* Test Item Value Reference Range Interpretation Comments White Blood Count (test code = 6690-2) 6.73 4.8-10.8 [facility] HospitalRed Blood Nqmtw1423-50-66 03:32:00* Test Item Value Reference Range Interpretation Comments Red Blood Count (test code = 789-8) 3.11 3.6-5.1 L [facility] HospitalHemoglobin2019-10-12 03:32:00* Test Item Value Reference Range Interpretation Comments Hemoglobin (test code = 94463-4) 8.5 12.0-16.0 L [facility] HospitalHematocrit2019-10-12 03:32:00* Test Item Value Reference Range Interpretation Comments Hematocrit (test code = 4544-3) 27.5 34.2-44.1 L [facility] HospitalMean Corpuscular Lzaukd2526-23-24 03:32:00* Test Item Value Reference Range Interpretation Comments Mean Corpuscular Volume (test code = 787-2) 88.4 81-99 [facility] HospitalMean Corpuscular Hfsdbxvjnr4057-55-08 03:32:00* Test Item Value Reference Range Interpretation Comments Mean Corpuscular Hemoglobin (test code = 785-6) 27.3 28-32 L [facility] HospitalMean Corpuscular Hemoglobin Concent 2019-05-25 03:32:00* Test Item Value Reference Range Interpretation Comments Mean Corpuscular Hemoglobin Concent (test code = 786-4) 30.9 31-35 L [facility] HospitalRed Cell Distribution [id number] 03:32:00* Test Item Value Reference Range Interpretation Comments Red Cell Distribution Width (test code = 90220-2) 14.9 11.7 -14.4 H [facility] HospitalPlatelet Gqrtw1641-59-18 03:32:00* Test Item Value Reference Range Interpretation Comments Platelet Count (test code = 777-3) 187 140-360 [facility] HospitalNeutrophils (%) (Auto)2019-05-25 03:32:00 * Test Item Value Reference Range Interpretation Comments Neutrophils (%) (Auto) (test code = 38873-1) 71.5 38.7-80.0 [facility] HospitalLymphocytes [...] Comments Lymphocytes # (Auto) (test code = 31894-1) 0.7 1.0-3.2 L [facility] [...] 0-0.1 [facility] HospitalVancomycin Level Nehonl1533-28-49 05:55:00* Test Item Value Reference Range Interpretation Comments Vancomycin Level Trough (test code = 4092-3) 15.7 5.0-10.0 Results repeated and called to ARLENE BLOOD RN at 0554 on 05/24/19 by Patricia Haney. Read back and verified.[facility] Hospital[facility] ([facility]ABLE)2019-05-22 08:33:00 [place] [address] Patient Name: JOEL BENITEZ MR #: [id number] : 1955 Age/Sex: 63/F Req #: [id number] Adm Physician: RISHI GRAVES MD Ordered by: Yovani Langley NP Report #: [id number] Location: MED/SURG2 Room/Bed: [facility] Procedure: [id number] D X/CHEST SINGLE (PORTABLE) Exam Date: 05/22/19 [...] SEPULVEDA MD 1 COPY TO: YOVANI LANGLEY INFORMATION MANAGEMENT SPECIALIST IR [id number] 17:37:00 [place] [address] Patient Name: JOEL BENITEZ MR #: [id number] : 1955 Age/Sex: 63/F Req #: [id number] Adm Physician: RISHI GRAVES MD Ordered by: NATHAN MIRANDA MD Report #: [id number] Location: MED/SURG2 Room/Bed: [facility] Procedure: [id number] DX /IR CONSULT Exam Date: Exam Time: [...] catheter. Plan: [facility]. PROCEDURE SUMMARY: - Venous access with ultrasound guidan ce - Non-tunneled central venous catheter insertion [...] Bard triple lume n CVC Catheter size (Micronesian): 7 Catheter length (cm): 16 Catheter flush: [...] TO: NATHAN MIRANDA MD NON-TUNNELLED CVC CATH [id number] 17:37:00 [place] [address] Patient Name: JOEL BENITEZ MR #: [id number] : 1955 Age/Sex: 63/F Req #: [id number] Adm Physician: RISHI GRAVES MD Ordered by: NATHAN MIRANDA MD Report #: [id number] Location: [facility] Room/Bed: [facility] Procedure: [id number] IR /NON-TUNNELLED CVC CATH PLACMNT Exam Date: [...] prepared and draped using all elements of [facility] sterile barrier technique including sterile gloves, sterile [...] placed: Bard triple lumen CVC Catheter size (Micronesian): 7 Catheter lisa gth (cm): 16 Catheter flush: Normal saline Catheter securement technique: No n-absorbable suture Contrast Contrast agent: None Radiation Dose N one, ultrasound guidance only. Chest radiograph to follow. Additional Detai khloe Additional description of procedure: None Equipment details: [...] 05/20/191738 C OPY TO: NATHAN MIRANDA MD GUIDANCE FOR VASCULAR [id number] 17:37:00 [place] [address] Patient Name: JOEL BENITEZ MR #: [id number] : 1955 Age/Sex: 63/F Req #: [id number] Adm Physician: RISHI GRAVES MD Ordered by: NATHAN MIRANDA MD Report #: [id number] Location: [facility] Room/Bed: [facility] Procedure: [id number] US /US GUIDANCE FOR VASCULAR ACCES Exam [...] prepared and draped using all elements of [facility] sterile barrier technique including sterile gloves, sterile [...] placed: Bard triple lumen CVC Catheter size (Micronesian): 7 Catheter lisa gth (cm): 16 Catheter [...] MD 38 Transcribed By: VICKY on 05/20/191738 Javier CALLES TO: NATHAN MIRANDA MD RENAL RETROPERITONEAL [id number] 17:25:00 [place] [address] Patient Name: JOEL BENITEZ MR #: [id number] : 1955 Age/Sex: 63/F Req #: [id number] Adm Physician: RISHI GRAVES MD Ordered by: NATHAN MIRANDA MD Report #: [id number] Location: [facility] Room/Bed: [facility] Procedure: [id number] US /US RENAL RETROPERITONEAL COMP Exam Date: [...] NATHAN MIRANDA MD CHEST SINGLE (PORTABLE)2019-05-20 17:22:00 [place] [address] Patient Name: JOEL BENITEZ MR #: [id number] : 1955 Age/Sex: 63/F Req #: [id number] Adm Physician: RISHI GRAVES MD Ordered by: NATHAN MIRANDA MD Report #: [id number] Location: MED/SURG2 Room/Bed: [facility] Procedure: [id number] DX /CHEST SINGLE (PORTABLE) Exam Date: 05/20/19 [...] 05/20/191722 COPY TO: NATHAN MIRANDA MD Prothrombin Bbtd8055-96-38 12:45:00* Test Item Value Reference Range Interpretation [...] - 4.05. Panic Value INR > 5.0 [facility] NCRITYSY3178-11-07 07:20:00 [facility] [address] [place] [address] Patient Name: JOEL BENITEZ MR #: [id number] : [birth year] Age/Sex: 63/F Req #: [id number] Adm Physician: RISHI GRAVES MD Ordered by: Yovani Langley NP Report #: [id number] Location: MED/SURG2 Room/Bed: [facility] Procedure: [id number] D X/SHOULDER LEFT COMPLETE Exam Date: 05/20/19 [...] COPY TO: YOVANI LANGLEY NP Vitamin B12 Fzngm9422-55-20 05:11:00* Test Item Value Reference Range Interpretation Comments Vitamin B12 Level (test code = 48162-9) 1824 213-816 H [facility] HospitalFolate2019-10-07 05:11:00* Test Item Value Reference Range Interpretation Comments Folate (test code = 2284-8) 7.5 7.0-15.4 [facility] HospitalFerritin2019-10-07 04:56:00* Test Item Value Reference Range Interpretation Comments Ferritin (test code = 2276-4) 31.93 4.63-204.00 [facility] HospitalPhosphorus Finbj9135-59-55 04:39:00* Test Item Value Reference Range Interpretation Comments Phosphorus Level (test code = KLC4199) 4.7 2.3-4.7 [facility] HospitalIron Wvgky6848-08-27 04:39:00* Test Item Value Reference Range Interpretation Comments Iron Level (test code = 2498-4) 20 50-170 L [facility] HospitalTotal Iron Binding Vmzeznsr3933-42-45 04:39:00* Test Item Value Reference Range Interpretation Comments Total Iron Binding Capacity (test code = 2500-7) 335 261-4 78 [facility] HospitalPercent Iron Nfuvzajwnc6597-59-04 04:39:00* Test Item Value Reference Range Interpretation Comments Percent Iron Saturation (test code = 2502-3) 6 15-50 L [facility] HospitalTransferrin2019-10-07 04:39:00* Test Item Value Reference Range Interpretation Comments Transferrin (test code = 3034-6) 239 180-382 [facility] HospitalUrine MFI8264-29-57 03:03:00* Test Item Value Reference Range Interpretation Comments Urine WBC (test code = 5821-4) 0-5 0-5 [facility] HospitalUrine IPD0905-50-78 03:03:00* Test Item Value Reference Range Interpretation Comments Urine RBC (test code = 71267-6) 0-5 0-5 [facility] HospitalUrine Tqqjjfow8634-82-02 03:03:00* Test Item Value Reference Range Interpretation Comments Urine Bacteria (test code = 74669-0) FEW NONE [facility] HospitalUrine Epithelial Xywuy4952-63-90 03:03:00 * Test Item Value Reference Range Interpretation Comments Urine Epithelial Cells (test code = 59557-8) FEW NONE [facility] HospitalUrine Dkjbyibgtek6496-72-93 01:16:00* Test Item Value Reference Range Interpretation Comments Urine Eosinophils (test code = 68756-5) NONE SEEN NONE SEEN [facility] HospitalUrine Random Total Ilnxqzb4413-20-57 23:22:00* Test Item Value Reference Range Interpretation Comments Urine Random Total Protein (test code = 2888-6) 10.9 1-14 [facility] HospitalUrine Random Cnpqvg4226-71-89 23:22:00* Test Item Value Reference Range Interpretation Comments Urine Random Sodium (test code = 2955-3) 66 [facility] HospitalUrine Bemcfsegdw0882-15-21 23:22:00* Test Item Value Reference Range Interpretation Comments Urine Creatinine (test code = 2161-8) 59.61 47-110 [facility] HospitalU[facility] Protein/Creatinine Uvxxu1235-90-90 23:22:00* Test Item Value Reference Range Interpretation Comments Urine Protein/Creatinine Ratio (test code = 99721-1) 0.00 [facility] HospitalUrine Ywiah2614-40-38 23:20:00* Test Item Value Reference Range Interpretation Comments Urine Color (test code = 5778-6) YELLOW YELLOW [facility] HospitalUrine Mubxgld3802-29-95 23:20:00* Test Item Value Reference Range Interpretation Comments Urine Clarity (test code = 62974-4) CLEAR CLEAR [facility] HospitalUrine Specific Okuqqwh7072-44-32 23:20:00 * Test Item Value Reference Range Interpretation Comments Urine Specific [place] (test code = 5811-5) 1.020 1.010-1.02 5 [facility] HospitalUrine gW2743-77-51 23:20:00* Test Item Value Reference Range Interpretation Comments Urine pH (test code = 81741-1) 5.5 5-7 [facility] HospitalU[facility] Leukocyte Dwlzhrla9917-73-84 23:20:00* Test Item Value Reference Range Interpretation Comments Urine Leukocyte Esterase (test code = 5799-2) NEGATIVE NEGATIVE [facility] HospitalUrine Qghybgg6145-69-62 23:20:00* Test Item Value Reference Range Interpretation Comments Urine Nitrite (test code = 31112-1) NEGATIVE NEGATIVE [facility] HospitalUrine Usynabz0441-37-86 23:20:00* Test Item Value Reference Range Interpretation Comments Urine Protein (test code = 5804-0) NEGATIVE NEGATIVE [facility] HospitalUrine Glucose (UA)2019-05-19 23:20:00* Test Item Value Reference Range Interpretation Comments Urine Glucose (UA) (test code = 2349-9) NEGATIVE NEGATIVE [facility] HospitalUrine Vmnmcwz9185-64-02 23:20:00* Test Item Value Reference Range Interpretation Comments Urine Ketones (test code = 52021-8) NEGATIVE NEGATIVE [facility] HospitalUrine Bstltuttfgju9570-04-05 23:20:00* Test Item Value Reference Range Interpretation Comments Urine Urobilinogen (test code = 47287-5) 0.2 0.2-1 [facility] HospitalUrine Puacalrom2230-97-60 23:20:00* Test Item Value Reference Range Interpretation Comments Urine Bilirubin (test code = 1978-6) NEGATIVE NEGATIVE [facility] HospitalUrine Ifrqx3679-59-37 23:20:00* Test Item Value Reference Range Interpretation Comments Urine Blood (test code = 38709-4) NEGATIVE NEGATIVE [facility] 1 FVHG1586-60-16 15:27:00 [facility] [address] [place] [address] Patient Name: JOEL BENITEZ MR #: [id number] : 1955 Age/Sex: 63/F Req #: [id number] Adm Physician: RISHI GRAVES MD Ordered by: Yovani Langley NP Report #: [id number] Location: MED/SURG2 Room/Bed: [facility] Procedure: [id number] D X/SHOULDER LEFT 1 VIEW Exam Date: 05/19/19 Exam Time : 1514 REPORT STATUS: Signed LEF T SHOULDER - 1 Image(s) : Single internal rotation view HISTORY: Shoulder pain, abdominal wall cellulitis COMPARISON: None available. FIND INGS: Evaluation is markedly limited secondary to a single projection and soft tissue attenuation. Evaluation is further limited by portable technique and overlying artifacts. Bones: No acute displaced fracture. No aggressi ve osseous lesion. Joints: Moderate degenerative changes of the healthcare receptionist elif ventricular joint. Soft tissues: The soft tissues appear unremarkable . IMPRESSION: 1. Moderate acromioclavicular osteoarthrosis. 2. Re commend routine 3 view shoulder radiograph series (performed in the radiology department/nonportable) when feasible for further evaluation. Signed by: Dr. Talha Joseph D.O., M.M.M. on 05/19/2019 3:35 PM Dictated By: TALHA GARRETT DO 1535 Transcribed B y: VICKY on 05/19/19 153 COPY TO: YOVANI LANGLEY NP B-Type Natriuretic Fbltaeo7589-14-33 06:55:00* Test Item Value Reference Range Interpretation Comments B-Type Natriuretic Peptide (test code = 42898-4) 36.7 0-100 [facility] HospitalThyroid Stimulating Hormone (TSH) 2019-05-19 06:54:00* Test Item Value Reference Range Interpretation Comments Thyroid Stimulating Hormone (TSH) (test code = 48457-7) 1.837 0.350-4.940 [facility] HospitalTriglycerides Giysb7566-47-94 10:28:00* Test Item Value Reference Range Interpretation Comments Triglycerides Level (test code = 2571-8) 48 0-149 [facility] HospitalCholesterol Lmbtm6579-22-80 10:28:00* Test Item Value Reference Range Interpretation Comments Cholesterol Level (test code = 2093-3) 80 0-199 Less than 200 mg/dL Low Wrib627 - 239 mg/dL Borderline Ndsy332 m g/dl and greater High Risk [facility] HospitalLDL Ahmczhmjwif7302-69-00 10:28:00* Test Item Value Reference Range Interpretation Comments LDL Cholesterol (test code = 2089-1) 27 60-130 L [facility] HospitalHDL Aktlchuytpj7618-09-49 10:28:00* Test Item Value Reference Range Interpretation Comments HDL Cholesterol (test code = 2085-9) 43 40-60 [facility] HospitalCholesterol/HDL Zdmfu9591-57-84 10:28:00 * Test Item Value Reference Range Interpretation Comments Cholesterol/HDL Ratio (test code = 9830-1) 1.9 3.0-3.6 L [facility] HospitalLipase2019-10-05 10:28:00* Test Item Value Reference Range Interpretation Comments Lipase (test code = 3040-3) 12 8-78 [facility] HospitalHemoglobin A1c Rklllxy4391-08-04 08:47:00 * Test Item Value Reference Range Interpretation Comments Hemoglobin A1c Percent (test code = Hemoglobin A1c Percent) 6.5 4.0-7.0 [facility] HospitalKNEE LEFT 1-2 KKPJU7761-55-15 08:35:00 [facility] [address] [place] [address] Patient Name: JOEL BENITEZ MR #: [id number] : 1955 Age/Sex: 63/F Req #: [id number] Adm Physician: RISHI GRAVES MD Ordered by: Yovani Langley INFORMATION MANAGEMENT SPECIALIST Report #: [id number] Location: MED/SURG2 Room/Bed: [facility] Procedure: D X/KNEE LEFT 1-2 VIEWS Exam Date: 05/18/19 Exam Time: 0730 REPORT STATUS: Signed LEFT KNEE X-RAY - 2 VIEWS HISTORY: pain s/p fall [id number] 730 COMPARISON: None available. FINDINGS: Bones: [...] VICKY on 05/18/19836 COPY TO: YOVANI LANGLEY INFORMATION MANAGEMENT SPECIALIST CT ABDOMEN/PELVIS BK4055-75-09 08:31:00 [place] [address] Patient Name: JOEL BENITEZ MR #: [id number] : 1955 Age/Sex: 63/F Req #: [id number] [facility] Physician: RISHI GRAVES MD Ordered by: Yovani Langley INFORMATION MANAGEMENT SPECIALIST Report #: [id number] Location: MED/SURG2 Room/Bed: [facility] Procedure: C T/CT ABDOMEN/PELVIS WO Exam Date: 05/18/19 Exam Time : 729 REPORT STATUS: Signed EXA M: CT Abdomen [...] AM Dictated By: LUCIANA TREJO MD 4 T ranscribed By: VICKY on 05/18/19834 COPY TO: YOVANI LANGLEY NP
[2020-01-09] MEDS ORDERED: SODIUM CHLORIDE FLUSH 10 ML SYR INJ ONE (17:15)
[2020-01-09] MEDS ORDERED: ONDANSETRON HCL INJ 2MG/ML 2ML 2 MG/ML VIAL IV PRN (17:15)
[2020-01-09] MEDS ORDERED: ASPIRIN 81 MG CHEW TAB PO ONE (17:15)
[2020-01-09] MEDS ORDERED: DEXTROSE 5%/0.45% SOD CHL 1,000 ML IV ONE (17:45)
--- NOTE | 2020-01-09 18:40 | NUR ---
RECD PT FROM ER VIA STRETCHER AAOX3, GUATEMALAN SPEAKING,SHAMIKA TO BSD ,TELE IN PLACE,O2 2L NC IN PLACE.HOB ELEVATED.
[2020-01-09 19:13] LABS: CREATINE KINASE MB 2.4 ng/mL (0-5.0)
--- NOTE | 2020-01-09 19:15 | NUR ---
Bedside nursing shift report completed with morning nurse. Pt alert and oriented to name, lying in bed HOB 30 degrees. Pt denies pain at this time. Daughter at bedside. Call light within reach. Call light within reach. Bed low and locked.
[2020-01-09] MEDS ORDERED: LISINOPRIL10 MG PO (19:29)
[2020-01-09] MEDS ORDERED: NEURONTIN300 MG PO (19:29)
[2020-01-09 19:30] VITALS: BP 140/56
[2020-01-09 20:00] VITALS: BP 140/56
--- NOTE | 2020-01-09 20:30 | NUR ---
Nursing assessment completed. Pt alert and oriented to name, hospital, some diagnosis: chronic anemia, DM, HTN, CHF, new diagnosis cirrhosis. Pt has chronic generalized pain, repositioned in bed, ask doctor for bariatric bed order. Pt skin arm and dry. Hx: falls, bruise to right upper back, open blister noted to right upper thigh, redness and edema to abdomen. last BM yesterday, Caldera flowing yellow urine. Daughter at bedside assisted with patient history. Oriented to room, call light within reach, bed low and locked.
[2020-01-09] MEDS ORDERED: ACETAMINOPHEN 325 MG SUPP PR PRN (21:30)
[2020-01-09] MEDS ORDERED: HYDRALAZINE HCL 20 MG/ML VIAL IV PRN (21:30)
[2020-01-09] MEDS ORDERED: MORPHINE SULFATE 2 MG/ML SYR 1ML IV PRN (21:30)
[2020-01-09] MEDS ORDERED: PNEUMOCOCCAL VACCINE POLYVALENT 23 MCG/0.5 ML VIAL IM SCH (22:56)
[2020-01-10] VITALS (8 sets, daily range): BP systolic 117–145; BP diastolic 50–86
--- NOTE | 2020-01-10 02:18 | History and Physical ---
CONSULTING PHYSICIANS: Include: 1. Rahul Liu MD. 2. Jhonny Gee MD. CHIEF COMPLAINT: Elevated troponin, abdominal pain and nausea, vomiting. HISTORY OF PRESENT ILLNESS: Ms. Hadley is a 64-year-old , Romansh-speaking female, admitted with complaints of shortness of breath, abdominal pain, nausea, vomiting, chest pain, and back pain. According to documentation from the emergency department, this abdominal pain started in September and due to the coronavirus pandemic, the patient did not follow up with her doctor. She denies any sick contacts or recent travel. According to the patient's daughter, who is at the bedside, she went to [facility] on Monday night and was told that she was overweight to go home, that she is fine. Apparently, she was at [facility] 2 months ago with left cataract extraction. Previous documentation indicates the patient is a poor historian. Apparently in the emergency department, she was tender over the mid to upper abdomen. The patient had also stated that she last walked about 3 months ago. The patient's daughter states that her brother and talafq-je-bql live with her and take care of her. The patient apparently had nausea and vomiting and vomited 3 times in the past 24 hours. Through translation, the daughter states that the patient's chest pain radiates to her back and she also has pressure that has rated at 7 to 8 on a 0 to 10 pain scale during my encounter. Left lower quadrant abdominal pain, rated at 8 to 10 on a scale of 0 to 10. Her last fall was about 2-1/2 to 3 weeks ago. PAST MEDICAL HISTORY: Hypertension, chronic kidney disease stage 3, congestive heart failure, diabetes mellitus, obstructive sleep apnea. She does not use a CPAP or BiPAP at home, oxygen dependent, using 3 L of oxygen via nasal cannula at home. Acute kidney injury due to ATN, falls, anxiety, depression, cellulitis of the right gluteus, morbid obesity, peripheral neuropathy, left shoulder injury, ambulatory dysfunction, osteoarthritis of left knee. Use of a walker/wheelchair/bedside commode at home. Anemia. PAST SURGICAL HISTORY: STEVEN-BSO, left arm surgery, cholecystectomy, 3 back surgeries, appendectomy, left cataract removal. FAMILY HISTORY: Father had emphysema, diabetes mellitus. Mother had tachycardia, hypotension, diabetes mellitus, Alzheimer's dementia. SOCIAL HISTORY: Denies any previous history of tobacco, alcohol, or illicit drugs. Prefers full code status. ALLERGIES: NO KNOWN ALLERGIES. MEDICATIONS: Please see medication reconciliation. REVIEW OF SYSTEMS: CONSTITUTIONAL: Denies fever or chills. EYES: Have a known right cataract, has been unable to have this removed due to coronavirus pandemic. EARS, NOSE, AND THROAT: Denies sore throat or trouble swallowing. RESPIRATORY: Shortness of breath with dry cough lately. GENITOURINARY: Incontinence, dysuria. PSYCHIATRIC: Known history of depression and anxiety. INTEGUMENTARY: She had a blister that popped on her right upper thigh. CARDIOVASCULAR: Chest pain 7 to 10 on a scale of 0 to 10, radiating to the back along with pressure. GASTROINTESTINAL: Last bowel movement on 01/07. Left lower quadrant abdominal pain 8/10, nausea, vomiting. Apparently, vomited 3 times in the past 24 hours. MUSCULOSKELETAL: Back pain. NEUROLOGIC: Mild dizziness, headache off and on. ENDOCRINE: Known diabetic. HEMATOLOGIC: Bruising at the neck and upper middle back. PHYSICAL EXAMINATION: VITAL SIGNS: Temperature 97.7, heart rate 68, respirations 18, oxygen saturation 98%. Blood pressure 140/56. GENERAL: The patient is lying supine in bed and her right side is stuporous. Will awaken to voice. LUNGS: Generally clear to auscultation, diminished in the bases. Oxygen at 3 L/minute via nasal cannula. HEENT: EOMI. NECK: Supple. CARDIOVASCULAR: Regular rate and rhythm. No murmur. D5-1/2 normal saline, infusing at 75 mL an hour into a peripheral IV. ABDOMEN: Morbidly obese, soft, tender to general to gentle palpation. Tender over the mid upper abdomen. Caldera catheter with arianne urine. EXTREMITIES: With 2+ pitting edema. No clubbing or cyanosis. No obvious signs of DVT. NEUROLOGIC: GCS 14, eye 3, verbal 5, motor 6. INTEGUMENTARY: Right upper thigh, 1 cm diameter broken blister. DIAGNOSTIC STUDIES/LABORATORY DATA: WBC 7.54, hemoglobin 7.8, hematocrit 26.4, platelets 164. PT 14.2, INR 1.04, PTT 33.9. Sodium 139, potassium 4.5, chloride 97, CO2 of 37, anion gap 9.5. BUN 59, creatinine 1.98, estimated GFR 25 per previous documentation in May of 2019. Her GFR ranged from 13 to 25. Glucose 65, calcium 8.9, total bilirubin 0.3. AST 18, ALT 12, and alkaline phosphatase 100. Creatine kinase 72, CK-MB 2.6, troponin I 0.635. Subsequent creatine kinase 65. CK-MB 2.4, troponin I 0.521. B-type natriuretic peptide 833.1. Total protein 6.7, albumin 3.4. Urinalysis 1+ protein, moderate epithelial cells, negative for leukocyte esterase, negative for nitrite, many urine bacteria, 0 to 1 hyaline cast. Coronavirus by PCR collected on 01/08 is pending. Abdomen and pelvis CT showed no acute findings in the abdomen or pelvis. She does have hepatic cirrhosis and splenomegaly, trace abdominal ascites. Chest x-ray showed severe cardiomegaly. No definite focal consolidation. Echocardiogram completed today shows an ejection fraction of 35% to 40%. A 12-lead EKG showed normal sinus rhythm with a heart rate of 65. On 05/18/2019, hemoglobin A1c 6.5%. On 05/19/2019, TSH 1.837. ASSESSMENT AND PLAN: 1. Elevated troponin , possibly due to congestive heart failure exacerbation. Continue to trend cardiac biomarkers. Cardiology has been consulted. 2. Hepatic cirrhosis and splenomegaly. Daughter was unaware of this diagnosis. We will get a hepatitis panel. Consult GI. 3. Abdominal pain with nausea, vomiting. Morphine p.r.n. for pain. N.p.o. after midnight. IV Zofran p.r.n. Monitor for improvement. Continue IV fluids. 4. Rpbas-wn-hzbaqgd systolic congestive heart failure with oxygen dependence. Continue supplemental oxygen. Continue home dose of Coreg. Monitor fluid balance closely. Strict intake and output. Follow up on chest x-ray results. 5. Acute kidney injury on chronic kidney disease stage 3. Lasix, gabapentin, lisinopril are all on hold for now. Continue D5 and half normal saline at 75 mL an hour. 6. Controlled hypertension with systolic congestive heart failure and chronic kidney disease 3. Continue home doses of clonidine and verapamil. Lisinopril is on hold. Monitor blood pressure. 7. Controlled type 2 diabetes mellitus with chronic kidney disease 3. In May, hemoglobin A1c was 6.5%. 75/25 insulin is on hold. Monitor fingerstick blood glucose level at least every 6 hours. 8. Super morbid obesity with BMI 76.51 and obstructive sleep apnea. Bariatric bed in use. Dietary restrictions. Renal diabetic diet for now, then n.p.o. after midnight. 9. Ambulatory dysfunction with a history of falls. Physical therapy evaluate and treat. 10. Anemia, unspecified. We will get a fecal occult blood test. Monitor H and H. GI follow up. No evidence of obvious bleeding. 11. Prophylaxis, IV Pepcid. H and P time spent 70 minutes. [address]. Dictated by Daniel Saini, IVELISSE Roberto Oneill MD HWP/MODL /[id number]
--- NOTE | 2020-01-10 03:58 | NUR ---
Bariatric bed and bedside toilet ordered confirmation #[id number] Spoke to Alix Harp at [employer] [facility]
[2020-01-10 04:21] LABS: CREATINE KINASE MB 2.1 ng/mL (0-5.0)
[2020-01-10 06:33] LABS: BASOPHILS % 0.4 % (0.0-1.0); EOSINOPHILS # (AUTO) 0.3 (0.0-0.4); EOSINOPHILS % 4.6 % (0.0-6.0); HEMATOCRIT 26.1 % (34.2-44.1); HEMOGLOBIN 7.4 g/dL (12.0-16.0); LYMPHOCYTES % 13.7 % (18.0-39.1); MEAN CORPUSCULAR HEMOGLOBIN 26.1 pg (28-32); MEAN CORPUSCULAR HGB CONC 28.4 g/dL (31-35); MEAN CORPUSCULAR VOLUME 91.9 fL (81-99); MONOCYTES # (AUTO) 0.9 (0.2-0.8); MONOCYTES % 12.6 % (4.4-11.3); NEUTROPHILS # (AUTO) 4.7 (2.1-6.9); NEUTROPHILS % 68.4 % (38.7-80.0); PLATELET COUNT 142 x10e3/uL (140-360); RED BLOOD COUNT 2.84 x10e6/uL (3.6-5.1); RED CELL DISTRIBUTION WIDTH 17.4 % (11.7-14.4)
[2020-01-10 07:13] LABS: ANION GAP 10.5 mmol/L (8-16); CALCIUM 8.5 mg/dL (8.4-10.2); CREATININE, SERUM 1.89 mg/dL (0.57-1.11); POTASSIUM 4.5 mmol/L (3.5-5.1)
[2020-01-10 07:42] LABS: CREATINE KINASE MB 1.9 ng/mL (0-5.0)
[2020-01-10 08:01] LABS: MAGNESIUM 2.2 MG/DL (1.3-2.1); PHOSPHORUS 3.1 MG/DL (2.3-4.7)
--- NOTE | 2020-01-10 08:19 | Diagnostic Imaging Report ---
EXAMINATION: CHEST SINGLE (PORTABLE) INDICATION: Elevated troponins, abdominal pain COMPARISON: Chest radiograph of 01/09/2020 FINDINGS: The study is severely underpenetrated due to patient body habitus. LINES/TUBES:EKG leads overlie the chest. LUNGS:The lungs are moderately inflated. Lung bases are not well visualized due to underpenetration. PLEURA:Trace bilateral pleural effusions, better visualized on CT abdomen and pelvis of the prior day. MEDIASTINUM:Severe cardiomegaly. BONES/SOFT TISSUES:No acute osseous injury. ABDOMEN:Limited evaluation due to underpenetration. IMPRESSION: Severely underpenetrated study due to patient body habitus. No definite focal consolidation. Signed by: Abdullahi Townsend MD on 01/10/2020 8:16 AM
[2020-01-10 08:30] LABS: ANISOCYTOSIS SLIGHT; PLATELET ESTIMATE ADEQUATE; PLATELET MORPHOLOGY COMMENT NORMAL; POLYCHROMASIA FEW
[2020-01-10 08:31] LABS: HYPOCHROMASIA MODERATE; OVALOCYTES FEW; TARGET CELLS FEW
[2020-01-10 08:32] LABS: RBC MORPHOLOGY COMMENT ABNORMAL
[2020-01-10] MEDS ORDERED: CLONIDINE HCL 0.1 MG TAB PO SCH (09:00)
[2020-01-10] MEDS ORDERED: VERAPAMIL HCL 120 MG TABSR PO SCH (09:00)
[2020-01-10] MEDS ORDERED: CARVEDILOL 12.5 MG TAB PO SCH (09:00)
[2020-01-10] MEDS: ASPIRIN 81 MG ENTERIC COATED PO SCH (10:19)
[2020-01-10] MEDS: FAMOTIDINE 20 MG/2 ML VIAL IV SCH ×2 (10:19→17:05)
[2020-01-10] MEDS: FLUOXETINE HCL 10 MG CAP PO SCH (10:20)
[2020-01-10] MEDS ORDERED: FUROSEMIDE 40 MG TAB PO SCH (10:30)
[2020-01-10] MEDS ORDERED: DEXTROSE 50% SYRINGE 50 ML IV PRN (10:45)
[2020-01-10] MEDS: INSULIN LISPRO 100 UNIT/1 ML 3ML VIAL SQ SCH ×3 (11:30→21:00)
[2020-01-10] MEDS: SPIRONOLACTONE 25 MG TAB PO SCH (12:19)
[2020-01-10] MEDS: FUROSEMIDE INJ 10 MG/ML 4 ML VIAL IV SCH ×2 (12:19→21:26)
--- NOTE | 2020-01-10 13:33 | NUR ---
WOUND CARE CONSULT FOR 64 YO FEMALE HX OFOBESITY , CHF, CHRONIC ANEMIA,BLISTER RT THIGH AUTUMN 14 ON PUP CONSERVATIVE STATUS AND INTERVENTIONS AND ALTERNATING PRESSURE MATTRESS LABS: WBC-6.93 HGB_7.4 GLUCOSE-91 SKIN ASSESSMENT COMPLETE PATIENT PRESENTS WITH ABRASION RT THIGH 1.5CM X1.5CM X0.1CM RECOMMENDATIONS: NURSING TO CONTINUE TO MAINTAIN CONSERVATIVE PUP STATUS AND INTERVENTIONS AND ALTERNATING PRESSURE MATTRESS NURSING TO CONTINUE TO ASSIST PATIENT OUT OF BED FOR MEALS AND MUCH TOLERATED NURSING TO CONTINUE TO ASSIST PATIENT NEEDED WITH MEALS AND NUTRITIONAL SUPPLEMENTS TO ENSURE PROPER REQUIREMENTS FOR HEALING NURSING TO CONTINUE TO OFFLOAD FEET AND HEELS NEEDED WITH PILLOW SUSPENSION WHEN IN BED NURSING TO CLEAN ABRASION RT THIGH WITH NORMAL SALINE DAILY AND APPLY BACITRACIN OINTMENT AND ALLEVYN FOAM DRESSING Addendum: 01/10/20 at 1341 by Genaro Hope RN Amended: Links added.
[2020-01-10] MEDS: GABAPENTIN 300 MG CAP PO SCH (16:52)
[2020-01-10] MEDS: CARVEDILOL 12.5 MG TAB PO SCH (17:05)
--- NOTE | 2020-01-10 17:36 | Consultation ---
DATE OF CONSULTATION: 01/10/2020 REASON FOR CONSULTATION: Chest pain and elevated troponin. CHIEF COMPLAINT: Abdominal pain. HISTORY OF PRESENT ILLNESS: This is a 64-year-old female with history of morbid obesity, CESIA, hypertension, diabetes, hyperlipidemia, depression, peripheral neuropathy, and chronic kidney disease, stage 4. The patient presents to [facility] ER with complaints of abdominal pain, nausea, and vomiting. Troponins were noted of 0.6. Cardiology was consulted to evaluate the patient. The patient is seen in room, lethargic, difficult historian. However, does report came in with abdominal pain and states burning sensation with urination. Reports also having episode of nausea and vomiting prior to coming in. Denies any chest pains or worsening shortness of breath. Troponins have been noted initially 0.6 and repeat have come down to 0.2. EKG showing normal sinus rhythm. No acute abnormalities noted. CT of the abdomen was noted with liver cirrhosis and splenomegaly and also with a small amount of abdominal ascites. UA was noted with many bacteria. PAST MEDICAL HISTORY: Morbid obesity, hypertension, diabetes, CESIA, hyperlipidemia, depression, peripheral neuropathy, and chronic kidney disease, stage 3-4. PAST SURGICAL HISTORY: Cholecystectomy, appendectomy, hysterectomy, and back surgery. SOCIAL HISTORY: She denies any alcohol or tobacco use. FAMILY HISTORY: Positive for hypertension and diabetes. Denies any cancer, strokes, or CAD. ALLERGIES: NO KNOWN ALLERGIES. HOME MEDICATIONS: Include atorvastatin 80 mg daily, carvedilol 12.5 mg b.i.d., clonidine 0.1 mg t.i.d., furosemide 40 mg daily, Neurontin 300 mg b.i.d., Humalog 35 units b.i.d., lisinopril 10 mg daily, and trazodone 50 mg daily. REVIEW OF SYSTEMS: Very poor historian, however, denies any chest pains or shortness of breath. Positive for nausea, vomiting, abdominal pain, and lower extremity edema. PHYSICAL EXAMINATION: VITAL SIGNS: Height 63 inches, weight 432 pounds, BMI 76. Temperature 97.4, pulse 84, respiratory rate 17, blood pressure 117/78, and pulse ox 98% on 3 L nasal cannula. GENERAL: Appears stated age. Morbidly obese. No acute distress. Lethargic at this time, difficult historian. SKIN: No rashes or bruises noted. HEENT: Normocephalic. Pupils are equal and reactive. Extraocular movements intact. Trachea midline. No JVD appreciated. No carotid bruits. Oral mucosa pink. HEART: Regular rate and rhythm. No murmurs or clicks. PMI about 5th intercostal space. LUNGS: Bilateral breath sounds clear to auscultation, however, distant given the patient's body habitus. LUNGS: No rales or wheezes noted. ABDOMEN: Soft, nontender, very large abdomen. Positive bowel sounds. MUSCULOSKELETAL: Generalized muscle weakness. +1 to +2 lower extremity edema. VASCULAR: +2 radial pulses bilaterally, +1 DP/PT pulses bilaterally. NEUROLOGIC: Cranial nerves 2 through 12 seem intact. LABORATORY DATA: White count 7, hemoglobin 7.8, hematocrit 26, and platelets 164. PT 14, PTT 33, and INR 1.04. Chemistry, sodium 139, potassium 4.5, chloride 97, bicarb 37, BUN 59, and creatinine 1.98. Troponin 0.6, next 0.5, next 0.4, next 0.2. BNP 133. UA showing many bacteria. IMAGING: CT abdomen showing liver cirrhosis and splenomegaly and small amount of abdominal ascites. EKG showing normal sinus rhythm. Chest x-ray showing severe cardiomegaly. No consolidations. ASSESSMENT: 1. Diastolic heart failure. 2. Obesity hypoventilation syndrome. 3. Morbid obesity. 4. Elevated troponin, likely demand type 2. 5. Urinary tract infection. 6. Chronic kidney disease, stage 3-4. 7. Anemia. PLAN: 1. The patient presents to [facility] ER with complaints of abdominal pain, nausea, and vomiting. Does report a burning sensation when she urinates. UA showing many bacteria. We will defer antibiotic therapy to primary. 2. The patient denies any overt chest pains or shortness of breath, though on admission, the patient was noted with elevated troponin, have come down, most recent 0.2. Given the patient's extreme morbid obesity, therapy would be conservative/medical. 3. We will place the patient on aspirin therapy. Continue her statin and beta- tami therapy. 4. We will get an echo just to evaluate heart function and structure. 5. DVT prophylaxis as recommended. 6. We will continue to hold the patient. However, again therapy will be conservative/medical given her extreme morbid obesity. Thank you very much for this consult. SEEN AND EXAMINED,AGREE WITH NOTE Dictated by Kannan Huang, RESTAURANT RECRUITER Rahul Liu MD DC/FRANCESCA /[id number] MAUREEN
--- NOTE | 2020-01-10 19:57 | NUR ---
RECEIVED PT IN BED AOX2 .RESPIRATIONS ARE EVEN AND UNLABORED TEL#3 SR RTFAA 20G S/L BRUISE TO RT UPPER BACK ,OPEN BLISTER TO RIGHT UPPER THIGH .REDNESS AND EDEMA TO THE ABDOMEN /F/C FLOWING URINE ..CALL LIGHT WITH IN REACH .CONTINUE TO MONITOR .
[2020-01-10] MEDS ORDERED: ATORVASTATIN 20 MG TAB PO SCH (21:00)
[2020-01-10] MEDS: ATORVASTATIN 40 MG TAB PO SCH (21:27)
[2020-01-10] MEDS: ACETAMINOPHEN/CODEINE 300MG - 30MG TAB PO PRN (21:27)
[2020-01-11] VITALS (8 sets, daily range): BP systolic 141–191; BP diastolic 57–120
[2020-01-11] MEDS: PANTOPRAZOLE 40 MG 10ML VIAL IV SCH ×3 (02:00→17:59)
--- NOTE | 2020-01-11 06:40 | NUR ---
PT RESTED DURING THE NIGHT C/O PAIN AND GIVEN ORDERED PAIN MEDICATION .CONTINUE TO MONITOR
[2020-01-11 06:59] LABS: BASOPHILS % 0.2 % (0.0-1.0); EOSINOPHILS # (AUTO) 0.1 (0.0-0.4); EOSINOPHILS % 0.6 % (0.0-6.0); HEMATOCRIT 27.5 % (34.2-44.1); HEMOGLOBIN 7.8 g/dL (12.0-16.0); LYMPHOCYTES # (AUTO) 0.4 (1.0-3.2); LYMPHOCYTES % 3.6 % (18.0-39.1); MEAN CORPUSCULAR HEMOGLOBIN 26.3 pg (28-32); MEAN CORPUSCULAR HGB CONC 28.4 g/dL (31-35); MEAN CORPUSCULAR VOLUME 92.6 fL (81-99); MONOCYTES # (AUTO) 1.1 (0.2-0.8); MONOCYTES % 10.3 % (4.4-11.3); NEUTROPHILS # (AUTO) 9.3 (2.1-6.9); NEUTROPHILS % 84.9 % (38.7-80.0); PLATELET COUNT 147 x10e3/uL (140-360); RED BLOOD COUNT 2.97 x10e6/uL (3.6-5.1); RED CELL DISTRIBUTION WIDTH 17.1 % (11.7-14.4)
--- NOTE | 2020-01-11 07:00 | NUR ---
BEDSIDE SHIFT REPORT FROM RN LICI. PT DENIES NEEDS AT THIS TIME.
--- NOTE | 2020-01-11 07:11 | NUR ---
BEDSIDE REPORT GIVEN TO THE ONCOMING NURSE
[2020-01-11 07:22] LABS: ALBUMIN 3.1 g/dL (3.5-5.0); ALBUMIN/GLOBULIN RATIO 0.9 (0.8-2.0); ANION GAP 13.8 mmol/L (8-16); CALCIUM 8.9 mg/dL (8.4-10.2); CREATININE, SERUM 1.89 mg/dL (0.57-1.11); POTASSIUM 4.8 mmol/L (3.5-5.1)
[2020-01-11 07:28] LABS: CHOL/HDL RATIO 2.2 (3.0-3.6)
[2020-01-11] MEDS: INSULIN LISPRO 100 UNIT/1 ML 3ML VIAL SQ SCH ×4 (07:30→21:00)
[2020-01-11 07:37] LABS: THYROID STIMULATING HORMONE 1.348 uIU/mL (0.350-4.940)
[2020-01-11 07:47] LABS: FERRITIN 36.71 ng/mL (4.63-204.00)
[2020-01-11] MEDS: SPIRONOLACTONE 25 MG TAB PO SCH (09:00)
[2020-01-11] MEDS: GABAPENTIN 300 MG CAP PO SCH ×2 (09:00→18:01)
[2020-01-11] MEDS: FLUOXETINE HCL 10 MG CAP PO SCH (09:00)
[2020-01-11] MEDS: ASPIRIN 81 MG ENTERIC COATED PO SCH (09:00)
[2020-01-11] MEDS: CARVEDILOL 12.5 MG TAB PO SCH ×2 (09:00→17:59)
[2020-01-11] MEDS: BACITRACIN ZINC 15 GM OINT TOP SCH (09:05)
[2020-01-11] MEDS: FAMOTIDINE 20 MG/2 ML VIAL IV SCH (09:08)
[2020-01-11] MEDS: FUROSEMIDE INJ 10 MG/ML 4 ML VIAL IV SCH ×2 (09:08→22:11)
[2020-01-11 09:17] LABS: PLATELET ESTIMATE ADEQUATE; PLATELET MORPHOLOGY COMMENT NORMAL; RBC MORPHOLOGY COMMENT ABNORMAL
[2020-01-11 09:18] LABS: HYPOCHROMASIA MARKED; TARGET CELLS FEW
--- NOTE | 2020-01-11 11:30 | Diagnostic Imaging Report ---
EXAM: Limited right upper abdominal ultrasound INDICATION: Screening for HCC. COMPARISON: CT abdomen/pelvis 01-09-2020. TECHNIQUE: Transverse and longitudinal images of the right upper quadrant abdomen were obtained FINDINGS: Examination is very limited due to the patient's body habitus and combativeness during the examination. Liver: Size: 18.9 cm in the right midclavicular line, increase in size Appearance: Normal echogenicity, smooth contour Mass: None visualized, although severely limited evaluation. Gallbladder: Not visualized. Bile Ducts: Intrahepatic Ducts: No dilatation Extrahepatic Ducts: Common bile duct measures 0.4 cm, no dilatation Pancreas: Limited visualization. Kidney: Not evaluated. Vessels: Aorta: Visualized portions are normal Inferior Vena Cava: Visualized portions are normal Main Portal Vein: 1.0 cm, normal size with hepatopetal flow. Free Fluid: No evidence of ascites. IMPRESSION: Examination is very limited due to the patient's body habitus and combativeness during the examination. Examination is nondiagnostic for evaluation for hepatic mass. Hepatomegaly. Signed by: Dr. Belen Roland MD on 01/11/2020 11:27 AM
[2020-01-11] MEDS ORDERED: CEFTRIAXONE SOD 1 GM/NS 50 ML 50 ML IV SCH (12:45)
--- NOTE | 2020-01-11 13:39 | Consultation ---
DATE OF CONSULTATION: 01/11/2020 Renal Consultation Note: CONSULT REQUESTED BY: Dr. Roberto Oneill. REASON FOR CONSULTATION: 1. Elevated serum creatinine. 2. Fluid, electrolyte, and acid-base management. HISTORY OF PRESENT ILLNESS: This is a 64-year-old female with history of: 1. Hypertension. 2. Diabetes mellitus. 3. Congestive heart failure. 4. Morbid obesity. 5. Chronic kidney disease, stage 3/4. 6. Neuropathy. 7. Osteoarthritis. 8. Hysterectomy. 9. Arm surgery. 10. Cholecystectomy. 11. Back surgery. 12. Appendectomy. 13. Cataract surgery. The patient was admitted to [facility] for shortness of breath, abdominal pain, and nausea and vomiting. She was evaluated by Gastroenterology. Nephrology consultation has been requested for elevated serum and creatinine, fluid, electrolyte, and acid-base management. Labs shows serum and creatinine of 1.8 with BUN of 52. The patient's daughter at bedside. No report of chest pain, fever, dysuria, or headache at the present time. PAST MEDICAL HISTORY: As per HPI. PAST SURGICAL HISTORY: As per HPI. ALLERGIES: PER OCT. MEDICATIONS: Per MAR. SOCIAL HISTORY: Negative x 3. FAMILY HISTORY: Negative for kidney disease. REVIEW OF SYSTEMS: Positive for abdominal pain, nausea, vomiting, and shortness of breath on admission as per HPI. Rest of the review of systems essentially negative at the present time with no complaints of chest pain, dysuria, hematuria, fever, or headache. PHYSICAL EXAMINATION: GENERAL: Morbidly obese female in bed, in no acute respiratory distress at the present time. VITAL SIGNS: Blood pressure is 155/61, pulse 93, respiratory rate 13, input and output noted. HEENT: Head atraumatic, normocephalic. NECK: Supple. CHEST: Lungs with decreased breath sounds at bases. CARDIOVASCULAR: S1 and S2 heard. ABDOMEN: Soft, obese. EXTREMITIES: Positive edema. NEUROLOGIC: Awake and alert. PSYCHIATRIC: Anxious. GENITOURINARY: No [place]. LABORATORY DATA: Serum sodium is 142, potassium 4.8, chloride 99, bicarbonate 34, BUN is 52, creatinine is 1.8, calcium is 8.9, albumin is 3.1, phosphorus 3.1, and magnesium 2.2. Hemoglobin is 7.8. IMAGING DATA: Abdominal ultrasound findings noted. ASSESSMENT: 1. Chronic kidney disease, stage III/IV. 2. Fluid overload. 3. Hypertension. 4. Diabetes mellitus. 5. Congestive heart failure. 6. Morbid obesity. 7. Liver cirrhosis. 8. Anemia. PLAN: 1. Renal function is overall stable. We will continue to monitor renal indices and urine output. 2. Continue IV Lasix + low-salt diet for fluid overload. 3. Serum electrolytes are stable. Monitor. 4. Monitor serum bicarbonate level. 5. Monitor serum calcium, phosphorus, and magnesium levels. 6. Monitor blood pressure plus continue antihypertensive medication. 7. Strict I's and O's and daily weights. 8. Renally dose all medications. 9. Presently, there is no current indication for hemodialysis. 10. Monitor H and H levels. Thank you for the interesting consult. We will continue to closely follow the patient with you. Please do not hesitate to call for any further questions. MD HERVE White/FRANCESCA /[id number] MTDSultana
--- NOTE | 2020-01-11 20:10 | NUR ---
RECEIVED PT IN BED AOX2 .RESPIRATIONS ARE EVEN AND UNLABORED TEL#3 SR RT FAA 20G S/L DR ESPARZA WAS IN THE ROOM TALKING TO THE PT .. P HAS PURE WICK CALL LIGHT WITH IN REACH .CONTINUE TO MONITOR
[2020-01-11] MEDS: IRON SUCROSE 100 MG in SODIUM CHLORIDE 0.9% 100 ML 100 ML IV SCH (22:11)
[2020-01-11] MEDS: ATORVASTATIN 40 MG TAB PO SCH (22:11)
[2020-01-11] MEDS: ACETAMINOPHEN/CODEINE 300MG - 30MG TAB PO PRN (23:32)
[2020-01-12] VITALS (8 sets, daily range): BP systolic 93–193; BP diastolic 63–79
[2020-01-12] MEDS: PANTOPRAZOLE 40 MG 10ML VIAL IV SCH ×4 (02:00→14:45)
[2020-01-12] MEDS ORDERED: CARVEDILOL 12.5 MG TAB PO ONE (05:00)
--- NOTE | 2020-01-12 06:24 | NUR ---
PT RESTING .DENIES PAIN .B/P WAS HIGH AND CALLED DR SANTANA's CONTINUOUS MINING OPERATOR JACK .SHE GAVE THE ORDER TO GIVE COREG 12.5 MG .MEDICATED WITH COREG .CONTINUE TO MONITOR
--- NOTE | 2020-01-12 07:00 | NUR ---
BEDSIDE SHIFT REPORT FROM RN LICI. PT DENIES NEEDS AT THIS TIME.
--- NOTE | 2020-01-12 07:05 | NUR ---
BEDSIDE REPORT GIVEN TO THE ONCOMING NURSE
[2020-01-12 07:08] LABS: BASOPHILS % 0.1 % (0.0-1.0); EOSINOPHILS % 0.3 % (0.0-6.0); HEMOGLOBIN 8.5 g/dL (12.0-16.0); LYMPHOCYTES # (AUTO) 0.5 (1.0-3.2); LYMPHOCYTES % 3.7 % (18.0-39.1); MEAN CORPUSCULAR HEMOGLOBIN 26.9 pg (28-32); MEAN CORPUSCULAR HGB CONC 29.3 g/dL (31-35); MEAN CORPUSCULAR VOLUME 91.8 fL (81-99); MONOCYTES # (AUTO) 1.6 (0.2-0.8); MONOCYTES % 11.8 % (4.4-11.3); NEUTROPHILS # (AUTO) 11.2 (2.1-6.9); NEUTROPHILS % 83.5 % (38.7-80.0); PLATELET COUNT 133 x10e3/uL (140-360); RED BLOOD COUNT 3.16 x10e6/uL (3.6-5.1); RED CELL DISTRIBUTION WIDTH 17.4 % (11.7-14.4)
[2020-01-12] MEDS: INSULIN LISPRO 100 UNIT/1 ML 3ML VIAL SQ SCH ×4 (07:30→21:00)
[2020-01-12 07:35] LABS: ALBUMIN 2.9 g/dL (3.5-5.0); ALBUMIN/GLOBULIN RATIO 0.8 (0.8-2.0); ANION GAP 13.1 mmol/L (8-16); CALCIUM 9.5 mg/dL (8.4-10.2); CREATININE, SERUM 1.59 mg/dL (0.57-1.11); MAGNESIUM 1.7 MG/DL (1.3-2.1); POTASSIUM 4.1 mmol/L (3.5-5.1)
[2020-01-12 08:54] LABS: HYPOCHROMASIA MARKED; PLATELET ESTIMATE ADEQUATE; PLATELET MORPHOLOGY COMMENT NORMAL; RBC MORPHOLOGY COMMENT ABNORMAL
[2020-01-12] MEDS: FUROSEMIDE INJ 10 MG/ML 4 ML VIAL IV SCH (09:03)
[2020-01-12] MEDS: SPIRONOLACTONE 25 MG TAB PO SCH (09:03)
[2020-01-12] MEDS: ASPIRIN 81 MG ENTERIC COATED PO SCH (09:04)
[2020-01-12] MEDS: BACITRACIN ZINC 15 GM OINT TOP SCH (09:06)
[2020-01-12] MEDS: CARVEDILOL 12.5 MG TAB PO SCH ×2 (09:06→16:47)
[2020-01-12] MEDS: GABAPENTIN 300 MG CAP PO SCH ×2 (09:06→16:47)
[2020-01-12] MEDS: FLUOXETINE HCL 10 MG CAP PO SCH (09:06)
[2020-01-12] MEDS ORDERED: SODIUM CHLORIDE 0.9% 500ML 500 ML IV ONE (10:45)
--- NOTE | 2020-01-12 11:00 | NUR ---
IVELISSE PINA WAS NOTIFIED OF PT'S GFR FOR PICC LINE PLACEMENT. OK FOR PICC LINE.
[2020-01-12] MEDS: NIFEDIPINE CR 30 MG TAB PO SCH (11:53)
[2020-01-12] MEDS: MEROPENEM 1GM 100 ML IV SCH ×2 (11:53→22:05)
--- NOTE | 2020-01-12 12:32 | NUR ---
SPOKE TO DR. COLBERT WITH NEPHROLOGY PER RADIOLOGIST REQUEST ABOUT PICC LINE PLACEMENT WITH GFR OF 32. PT OK TO GET PICC LINE PLACEMENT.
--- NOTE | 2020-01-12 12:49 | NUR ---
Received order for inpatient rehab, but not [place]. GHAZALA spoke to Tamar, liaison with [facility] [phone]. She stated they do not accept [facility]. GHAZALA spoke with GHAZALA Shipley, and she stated [facility] does not accept [facility] either. Will have CM/SW follow up tomorrow.
--- NOTE | 2020-01-12 13:56 | Diagnostic Imaging Report ---
EXAMINATION: CHEST XRAY LINE PLACEMENT INDICATION: LINE PLACEMENT COMPARISON: Chest radiograph 01-10-2020. FINDINGS: Examination is limited by portable technique and soft tissue attenuation. TUBES and LINES: Right arm PICC terminates in the lower SVC. LUNGS: Lungs are well inflated. Mild bilateral interstitial opacities. Decreasing bibasilar opacities. PLEURA: Decreasing small bilateral pleural effusions. HEART AND MEDIASTINUM: The cardiomediastinal silhouette is moderately enlarged. BONES AND SOFT TISSUES: No acute osseous lesion. Soft tissues are unremarkable. UPPER ABDOMEN: No free air under the diaphragm. IMPRESSION: Right arm PICC terminates in the lower SVC. No evidence of pneumothorax. Cardiomegaly with decreasing pulmonary edema. Signed by: Dr. Belen Roland MD on 01/12/2020 1:53 PM
[2020-01-12] MEDS: FUROSEMIDE 40 MG TAB PO SCH (18:26)
[2020-01-12] MEDS: IRON SUCROSE 100 MG in SODIUM CHLORIDE 0.9% 100 ML 100 ML IV SCH (18:55)
--- NOTE | 2020-01-12 19:37 | NUR ---
RECEIVED PT IN BED AOX2 .PT HAS RT UPPER ARM PICC LINE AND PURE WICK DRAINING CLEAR YELLOW URINE .CALL LIGHT WITH IN REACH .CONTINUE TO MONITOR
[2020-01-12] MEDS: ATORVASTATIN 40 MG TAB PO SCH (21:00)
[2020-01-13] VITALS (8 sets, daily range): BP systolic 136–156; BP diastolic 54–75
[2020-01-13] MEDS: PANTOPRAZOLE 40 MG 10ML VIAL IV SCH ×4 (02:14→16:56)
[2020-01-13] MEDS: ACETAMINOPHEN/CODEINE 300MG - 30MG TAB PO PRN ×2 (02:17→21:20)
[2020-01-13 05:56] LABS: BASOPHILS % 0.2 % (0.0-1.0); EOSINOPHILS # (AUTO) 0.1 (0.0-0.4); EOSINOPHILS % 0.8 % (0.0-6.0); HEMATOCRIT 25.1 % (34.2-44.1); HEMOGLOBIN 7.4 g/dL (12.0-16.0); LYMPHOCYTES # (AUTO) 0.5 (1.0-3.2); LYMPHOCYTES % 4.2 % (18.0-39.1); MEAN CORPUSCULAR HEMOGLOBIN 27.1 pg (28-32); MEAN CORPUSCULAR HGB CONC 29.5 g/dL (31-35); MEAN CORPUSCULAR VOLUME 91.9 fL (81-99); MONOCYTES # (AUTO) 1.7 (0.2-0.8); MONOCYTES % 13.7 % (4.4-11.3); NEUTROPHILS % 80.5 % (38.7-80.0); PLATELET COUNT 134 x10e3/uL (140-360); RED BLOOD COUNT 2.73 x10e6/uL (3.6-5.1); RED CELL DISTRIBUTION WIDTH 17.9 % (11.7-14.4)
[2020-01-13] MEDS: FUROSEMIDE 40 MG TAB PO SCH ×2 (05:57→16:56)
[2020-01-13 06:16] LABS: ALBUMIN 2.5 g/dL (3.5-5.0); ALBUMIN/GLOBULIN RATIO 0.8 (0.8-2.0); ANION GAP 10.2 mmol/L (8-16); CALCIUM 8.9 mg/dL (8.4-10.2); CREATININE, SERUM 1.48 mg/dL (0.57-1.11); MAGNESIUM 1.6 MG/DL (1.3-2.1); POTASSIUM 4.2 mmol/L (3.5-5.1)
--- NOTE | 2020-01-13 06:25 | NUR ---
PT RESTING C/O PAIN GIVEN ORDERED PAIN MEDICATION .CALL LIGHT WITHIN REACH .CONTINUE TO MONITOR
--- NOTE | 2020-01-13 06:47 | NUR ---
HIGH CO2 NOTIFIED YOVANI SEX OFFENDER TREATMENT PROFESSIONAL AND CONSULTED DR ARMAS AND BEDSIDE REPORT GIVEN T0 THE ONCOMING NURSE
[2020-01-13] MEDS: CARVEDILOL 12.5 MG TAB PO SCH ×2 (08:44→16:56)
[2020-01-13] MEDS: ASPIRIN 81 MG ENTERIC COATED PO SCH (08:44)
[2020-01-13] MEDS: GABAPENTIN 300 MG CAP PO SCH (08:44)
[2020-01-13] MEDS: SPIRONOLACTONE 25 MG TAB PO SCH (08:44)
[2020-01-13] MEDS: NIFEDIPINE CR 30 MG TAB PO SCH (08:45)
[2020-01-13] MEDS: MEROPENEM 1GM 100 ML IV SCH ×2 (08:45→21:29)
[2020-01-13] MEDS: FLUOXETINE HCL 10 MG CAP PO SCH (08:45)
[2020-01-13] MEDS: BACITRACIN ZINC 15 GM OINT TOP SCH (08:45)
[2020-01-13] MEDS: MORPHINE SULFATE 2 MG/ML SYR 1ML IV PRN (08:48)
[2020-01-13] MEDS ORDERED: ASPIRIN EC81 MG PO (10:07)
[2020-01-13] MEDS ORDERED: FUROSEMIDE40 MG PO (10:07)
[2020-01-13] MEDS ORDERED: TYLENOL WITH C1 EACH PO (10:07)
[2020-01-13] MEDS ORDERED: ALDACTONE25 MG PO (10:07)
[2020-01-13] MEDS ORDERED: COREG12.5 MG PO (10:07)
[2020-01-13] MEDS ORDERED: MERREM500 MG IV (10:07)
[2020-01-13] MEDS ORDERED: NIFEDIPINE ER30 M1 PO (10:07)
--- NOTE | 2020-01-13 10:52 | NUR ---
ORDER RECEIVED FOR HOME IV ABX [id number]. CALL TO PT'S DTR; JEMMA BENITEZ @ [phone]. STATES SHE SPOKE TO IVELISSE PINA THIS MORNING AND WAS UNDER THE IMPRESSION HER MOTHER WAS GOING TO A REHAB. INFORMED I WAS TOLD THEY DID NOT WANT THE [facility]. STATES SHE WOULD HAVE TO SPEAK W HER BROTHER FIRST ABOUT ADMINISTERING THE MED AT HOME. DTR INQUIRED ABOUT PT REMAINING IN THE HOSPITAL FOR 12MORE DAYS. EXPLAINED LOC AND TRANSITIONING THE PT TO THE PROPER LOC. VERBALIZED UNDERSTANDING. CM INQUIRED IF THE PT HAD BEEN ADMITTED TO [facility] IN THE PAST. DTR SAID NO. STATES SHE WOULD LIKE TO KNOW IF [facility] SAYS NO BEFORE ARRANGING HOME IV ABX. CALL TO WILBERTO / YADY @ [facility] TO RUN PT'S INSURANCE TO SEE IF THEY ACCEPT. AWAITING CALL BACK.
[2020-01-13 11:13] LABS: LYMPHOCYTES % (MANUAL) 2 % (19-48); MONOCYTES % (MANUAL) 7 % (3.4-9.0); NEUTROPHILS % (MANUAL) 91 % (40-74)
[2020-01-13 11:14] LABS: ANISOCYTOSIS SLIGHT; HYPOCHROMASIA SLIGHT; PLATELET ESTIMATE SLIGHTLY DECREASED; PLATELET MORPHOLOGY COMMENT NORMAL; RBC MORPHOLOGY COMMENT NORMAL
[2020-01-13] MEDS: INSULIN LISPRO 100 UNIT/1 ML 3ML VIAL SQ SCH ×4 (11:30→21:29)
[2020-01-13] MEDS ORDERED: SODIUM CHLORIDE 0.9% 1000ML 1,000 ML IV NR (12:15)
--- NOTE | 2020-01-13 13:05 | NUR ---
CALL RECEIVED FROM [facility]. THEY ARE NOT IN NETWORK W THE PT'S INSURANCE. NOTIFIED THE DTR. DISCUSSED CHOICE FOR IV ABX. [facility] AND [facility]. CHOSE [facility]; STATES ANY ONE THAT IN IN NETWORK W HER INSURANCE. STATES SHE NEEDED TO VERIFY THE ADDRESS HER MOTHER WILL DC TO REFERRAL FAXED TO [facility] @ OFFF: [phone] / FAX: [phone]
--- NOTE | 2020-01-13 14:26 | NUR ---
PT IS COVERED AT 100%. NOTIFIED YOVANI. ORDERED SN AND FLUSHES SO A NURSE WILL CHECK ON THE PT ONCE OR TWICE TO REINFORCE TEACHING IF NEEDED. FLUSH ORDERS ALSO ENTERED PER [facility]. YOVANI WILL DC PT TODAY.
--- NOTE | 2020-01-13 15:00 | NUR ---
Antibiotics have been set up with home health for home infusion. Received orders to discharge from attending.
--- NOTE | 2020-01-13 15:29 | Consultation ---
DATE OF CONSULTATION: CHIEF COMPLAINT: Dyspnea and somnolence. HISTORY OF PRESENT ILLNESS: The patient is a 64-year-old man. She has a history of some chronic respiratory problems. She uses oxygen at home. She did receive CPAP previously, but was unable to tolerate it. The patient came to the emergency department on the 08 of January, complaining of some abdominal pain. She had some vomiting as well as some swelling. The patient was seen in consultation by Cardiology. She had an echocardiogram that showed a reduced ejection fraction. She received Lasix. She also had a CT scan of the abdomen and pelvis that showed some cirrhosis and splenomegaly. She was seen by Nephrology as well for chronic renal insufficiency. The daughter expressed concern because she has been on high levels of oxygen since coming to the hospital. Apparently, she was on up to 10 L and was recently lowered to 2 L. PAST MEDICAL HISTORY: 1. Obesity hypoventilation syndrome. 2. Hypertension. 3. Diabetes mellitus. 4. Congestive heart failure. 5. Chronic renal failure, stage 3. PAST SURGICAL HISTORY: 1. Status post cholecystectomy. 2. Status post appendectomy. 3. Status post back surgery. FAMILY HISTORY: Family history is noncontributory. SOCIAL HISTORY: The patient is not a prior smoker. She is not a drinker. ALLERGIES: THERE ARE NO KNOWN DRUG ALLERGIES. REVIEW OF SYSTEMS: The patient does not have fevers or headache. She has no neck pain. She is not having any chest pain. She does not have cough. She did have abdominal pain that is improved. She has no nausea or vomiting. She does have some leg edema. PHYSICAL EXAMINATION: VITAL SIGNS: The blood pressure is 136/54 and the saturation is 95% on 2 L. The patient is afebrile and the pulse is 64. HEENT: Shows no facial swelling or erythema. CARDIAC: Reveals regular rate and rhythm with normal S1 and S2. LUNGS: Auscultation of lungs reveals decreased breath sounds at the bases. There is no wheezing. ABDOMEN: Soft. There is no rebound or guarding. EXTREMITIES: She does have 1 to 2+ leg edema. NEUROLOGICAL: Shows the patient is difficult to arouse, but has no focal abnormalities. LABORATORY DATA: White blood cell count is 12.4 and the hemoglobin is 7.4. The platelet count is 134. The BUN to creatinine ratio is 37 to 1.48. The blood sugar is 159. The albumin is 2.5. RADIOGRAPHIC DATA: CT scan of the abdomen and pelvis shows hepatic cirrhosis and splenomegaly. Chest x-ray shows a severely underpenetrated film. Echocardiogram shows a reduced ejection fraction of 35% to 40%. There is some concentric left ventricular hypertrophy. IMPRESSION: 1. Eozgd-wk-wmpqzfc systolic congestive heart failure. 2. Obesity hypoventilation syndrome. 3. Obstructive sleep apnea. 4. Cirrhosis of unclear etiology. 5. Chronic renal failure, stage 3. 6. Diabetes. 7. Hypertension. PLAN: 1. ABG now. 2. Continue oxygen at 2 L. 3. The patient will probably need CPAP or BiPAP at night. 4. Continue current regimen for heart failure and for cirrhosis. Sadiq Judge MD [facility]/MODL /[id number]
--- NOTE | 2020-01-13 18:30 | NUR ---
Dr. Judge was here to see pt and ordered STAT ABG. Results called to Dr. Judge and received orders to start pt on Bipap and recheck ABG at 2030. Discharge is on hold at this time per Dr. Judge. Notified attending of hold on discharge.
[2020-01-13] MEDS: IRON SUCROSE 100 MG in SODIUM CHLORIDE 0.9% 100 ML 100 ML IV SCH (18:46)
--- NOTE | 2020-01-13 19:00 | NUR ---
RECEIVED PATIENT IN BEDSIDE SHIFT REPORT. BIPAP ON AT THIS TIME. NO PAIN REPORTED. NO S&S OF DISTRESS NOTED. BED LOCKED IN LOWEST POSITION, SIDE RAILS UPX2, CALL LIGHT IN REACH.
[2020-01-13] MEDS: ATORVASTATIN 40 MG TAB PO SCH (21:28)
--- NOTE | 2020-01-13 21:30 | NUR ---
TOOK OFF BIPAP FOR MEDS AND FOR PATIENT TO EAT A SNACK. WILL REAPPLY WHEN PATIENT IS FINISHED.
--- NOTE | 2020-01-13 23:00 | NUR ---
SPOKE WITH PATIENT FAMILY MEMBER EXPRESSING IMPORTANCE OF WEARING BIPAP, FAMILY MEMBER RELAYED MESSAGE TO PATIENT. PATIENT STATES SHE IS NOT YET READY TO PUT IT BACK ON, WILL ATTEMPT AGAIN.
[2020-01-14] VITALS (8 sets, daily range): BP systolic 105–148; BP diastolic 35–58
[2020-01-14] MEDS: MORPHINE SULFATE 2 MG/ML SYR 1ML IV PRN ×2 (01:03→06:46)
--- NOTE | 2020-01-14 01:03 | NUR ---
APPLIED BIPAP AT THIS TIME. PATIENT STATED SHE WOULD WEAR IT. WILL CONTINUE TO MONITOR.
--- NOTE | 2020-01-14 01:30 | NUR ---
PATIENT REMOVED BIPAP. WILL ATTEMPT TO REAPPLY.
[2020-01-14] MEDS: PANTOPRAZOLE 40 MG 10ML VIAL IV SCH ×3 (02:00→16:30)
--- NOTE | 2020-01-14 02:30 | NUR ---
PATIENT AGREED TO WEAR BIPAP, AT SON'S REQUEST VIA TELEPHONE. PATIENT VERBALIZED SHE WOULD LEAVE IT ON. WILL CONTINUE TO MONITOR.
[2020-01-14 06:11] LABS: BASOPHILS % 0.2 % (0.0-1.0); EOSINOPHILS # (AUTO) 0.2 (0.0-0.4); EOSINOPHILS % 1.8 % (0.0-6.0); HEMATOCRIT 24.2 % (34.2-44.1); HEMOGLOBIN 7.2 g/dL (12.0-16.0); LYMPHOCYTES # (AUTO) 0.7 (1.0-3.2); LYMPHOCYTES % 6.1 % (18.0-39.1); MEAN CORPUSCULAR HGB CONC 29.8 g/dL (31-35); MEAN CORPUSCULAR VOLUME 90.6 fL (81-99); MONOCYTES # (AUTO) 1.5 (0.2-0.8); MONOCYTES % 12.6 % (4.4-11.3); NEUTROPHILS # (AUTO) 9.5 (2.1-6.9); NEUTROPHILS % 78.8 % (38.7-80.0); PLATELET COUNT 130 x10e3/uL (140-360); RED BLOOD COUNT 2.67 x10e6/uL (3.6-5.1); RED CELL DISTRIBUTION WIDTH 17.6 % (11.7-14.4)
[2020-01-14 06:47] LABS: ALBUMIN 2.2 g/dL (3.5-5.0); ALBUMIN/GLOBULIN RATIO 0.7 (0.8-2.0); ANION GAP 10.2 mmol/L (8-16); CALCIUM 8.5 mg/dL (8.4-10.2); CREATININE, SERUM 1.4 mg/dL (0.57-1.11); MAGNESIUM 1.6 MG/DL (1.3-2.1); POTASSIUM 4.2 mmol/L (3.5-5.1)
[2020-01-14] MEDS: FUROSEMIDE 40 MG TAB PO SCH (06:47)
[2020-01-14] MEDS: FLUOXETINE HCL 10 MG CAP PO SCH (09:00)
[2020-01-14] MEDS: BACITRACIN ZINC 15 GM OINT TOP SCH (09:00)
[2020-01-14] MEDS: NIFEDIPINE CR 30 MG TAB PO SCH (09:00)
[2020-01-14] MEDS ORDERED: SPIRONOLACTONE 25 MG TAB PO SCH (09:00)
[2020-01-14] MEDS: CARVEDILOL 12.5 MG TAB PO SCH ×2 (09:00→17:00)
[2020-01-14] MEDS: ASPIRIN 81 MG ENTERIC COATED PO SCH (09:00)
[2020-01-14] MEDS: MEROPENEM 1GM 100 ML IV SCH (10:45)
[2020-01-14] MEDS: INSULIN LISPRO 100 UNIT/1 ML 3ML VIAL SQ SCH ×2 (11:30→16:30)
[2020-01-14] MEDS: ACETAMINOPHEN/CODEINE 300MG - 30MG TAB PO PRN (11:30)
[2020-01-14 11:43] LABS: EOSINOPHILS % (MANUAL) 2 % (0-7); LYMPHOCYTES % (MANUAL) 6 % (19-48); MONOCYTES % (MANUAL) 7 % (3.4-9.0); NEUTROPHILS % (MANUAL) 85 % (40-74)
[2020-01-14 11:44] LABS: ANISOCYTOSIS SLIGHT; PLATELET ESTIMATE ADEQUATE; PLATELET MORPHOLOGY COMMENT RARE EDTA CLUMPING; RBC MORPHOLOGY COMMENT NORMAL
--- NOTE | 2020-01-14 11:51 | NUR ---
PT DISCUSSED IN MDR. PLAN IS HOME TODAY. REQUESTED PT AT HOME AND PUREWICK CATHETER AT HOME. CALL TO [facility], [facility], [facility]. NONE KNOW OF ANY DME COMPANY THAT PROVIDE THIS PRODUCT. PUREWICKS CAN BE BOUGHT ONLINE. WILL CONTINUE TO LOOK FOR THIS PRODUCT W A DME CO. SPOKE [facility]. STATES REFERRAL WAS SET UP W [facility]. CALL TO [facility] @ OFF: [phone] / FAX: [phone]. SPOKE [employer] PRIETO CM. STATES SHE WILL CALL A DME COMPANY TO SEE IF THEY CARRY PUREWICKS.
[2020-01-14] MEDS ORDERED: DEXTROSE 5% 1,000 ML IV ONE (13:15)
--- NOTE | 2020-01-14 13:23 | NUR ---
ORDER RECEIVED FOR NON INVASIVE VENT FOR HOME. CALL TO DTR TO PROVIDE CHOICE. [facility]. CHOSE [facility] REFERRAL FAXED TO [facility] @ OFF: [phone] / FAX: [phone]. NOTIFIED [facility] OF REFERRAL. SPOKE W THE DTR ABOUT PUREWICK NOT BEING AVAILABLE. INFORMED AVAILABLE ON LINE. STATES SHE WILL LOOK AT THEM. INSTRUCTED SHE MAY HAVE TO HAVE HER PCP COORDINATE SUCTIONING FOR PUREWICK. STATES ELY IS HER PCP. DISCUSSED GETTING CONTACTING ELY AN OUTPT TO FACILITATE SUCTION FOR PUREWICK. VERBALIZED UNDERSTANDING. NOTIFIED YOVANI OF THE ABOVE DISCUSSION. ALSO WAITING TO HEAR BACK FROM [facility] TO SEE IF THEY ARE ABLE TO OBTAIN PUREWICK.
--- NOTE | 2020-01-14 14:29 | Progress Note ---
DATE: Pulmonary Critical Care Progress Note SUBJECTIVE: The patient was started on BiPAP last night. She has BiPAP overnight. She is less somnolent this morning and easier to arouse. PHYSICAL EXAMINATION: VITAL SIGNS: The patient is afebrile. She is saturating 90% on 3 L. Her pulse is 70. HEENT: Shows no facial swelling or erythema. The oropharynx is normal. LYMPHATIC: Shows no submandibular, cervical, or supraclavicular adenopathy. CARDIAC: Reveals regular rate and rhythm with normal S1 and S2. LUNGS: Auscultation of lungs reveals decreased breath sounds at the bases. There is no wheezing. ABDOMEN: Soft and nontender. There is no rebound or guarding. EXTREMITIES: Shows no leg edema or calf tenderness. There is no cyanosis or clubbing. SKIN: Shows no rashes. LABORATORY DATA: White blood cell count is 12.02 and hemoglobin is 7.2. The platelet count is 130. The BUN to creatinine ratio is 37 to 1.4. Albumin is 2.2. IMPRESSION: 1. Mvlvs-vg-huxnnht respiratory failure. 2. Bixjj-eo-hppejov systolic congestive heart failure. 3. Obesity hypoventilation syndrome. 4. Obstructive sleep apnea. 5. Cirrhosis of unclear etiology. 6. Diabetes. 7. Hypertension. 8. Anemia. 9. Thrombocytopenia. PLAN: 1. Continue oxygen during the day and BiPAP ST or VAPS device at night. 2. Intent to range four VAPS device at home based on her elevated CO2 at baseline. 3. Continue current diuretic regimen. 4. Monitor blood counts and platelet count. 5. Case discussed with the patient and Internal Medicine. MD EBONY Warner/MODL /[id number]
[2020-01-14 16:05] LABS: ABG HCO3 41 mmol/L (22-26); ABG PCO2 64 mmHg (35-45); ABG PH 7.42 (7.35-7.45)
--- NOTE | 2020-01-14 20:40 | NUR ---
PATIENT DISCHARGED AT THIS TIME HOME VIA EMS. DISCHARGE INSTRUCTIONS COMPLETED BY DAY SHIFT NURSE, GIVEN TO DAUGHTER. PATIENT HOME WITH R UPPER ARM PICC LINE, INSTRUCTIONS ON CARE GIVEN TO FAMILY MEMBERS BY DAY SHIFT. NO QUESTIONS AT THIS TIME. VITAL SIGNS STABLE.
--- NOTE | 2020-01-14 22:00 | NUR ---
SPOKE TO SIZE [facility] AND ARRANGED FOR BED AND BEDSIDE COMMODE COOK CASHIER FOOD PREP. CONFIRMATION # [id number]. SHERLY HODGE WILL COOK CASHIER FOOD PREP ON 01/15/20 IN THE MORNING.
--- NOTE | 2020-01-15 06:33 | Discharge Summary ---
ADMISSION DIAGNOSES: 1. Elevated troponin. 2. Cirrhosis. 3. Hjhef-xr-ilosilf systolic congestive heart failure. 4. Acute kidney injury on chronic kidney disease 3. 5. Hypertension with systolic congestive heart failure. 6. Chronic kidney disease 3. 7. Type 2 diabetes with chronic kidney disease 3. 8. Super morbid obesity with a BMI of 76.5. 9. Ambulatory dysfunction with history of fall. DISCHARGE DIAGNOSES: 1. Elevated troponin. 2. Cirrhosis. 3. Neuxk-lm-nguecoh systolic congestive heart failure. 4. Acute kidney injury on chronic kidney disease 3. 5. Hypertension with systolic congestive heart failure. 6. Chronic kidney disease 3. 7. Type 2 diabetes with chronic kidney disease 3. 8. Super morbid obesity with a BMI of 76.5. 9. Ambulatory dysfunction with history of fall. 10. Extended spectrum beta-lactamases of the urine, present on admission. HISTORY: Hypertension, CKD-3, chronic systolic CHF, type 2 diabetes, CESIA, obstructive sleep apnea, obesity hypoventilation syndrome, falls, anxiety, depression, peripheral neuropathy, left shoulder injury, and OA of left knee. SURGICAL HISTORY: Hysterectomy, left arm surgery, cholecystectomy, 3 back surgeries, appendectomy, left cataract removal. FAMILY HISTORY: The patient's father and mother had diabetes. SOCIAL HISTORY: Noncontributory. HOSPITAL COURSE: A 64-year-old female admitted with complaints of shortness of breath, abdominal pain, nausea, vomiting, chest pain, and back pain. According to the ER record, abdominal pain started in September, but due to coronavirus, she did not follow up with her doctor. She went to [place] on Monday and was told she was overweight to go home and that she was fine. According to the daughter, the patient's chest pain radiates to her back and she also has lower abdominal pain and dysuria. On admission, CT of the abdomen and pelvis showed no acute finding. Chest x-ray showed severe cardiomegaly. No definite focal consolidation. Ultrasound of the abdomen showed hepatomegaly. Echo showed an EF of 35% to 40%. The patient's urine came back positive for ESBL, so she was started on Merrem. She had a right arm PICC line placed for long-term antibiotic. The patient was found to have cirrhosis, likely due to her hepatic steatosis and her diuretics were increased. Prior to discharge, the patient's carbon dioxide was elevated, so Pulmonology was consulted. Her carbon dioxide decreased when she was using the BiPAP at night. So, per Pulmonology recommendation, the patient was started on a noninvasive vent at home. She was discharged home with new prescriptions for aspirin, Coreg, Lasix, nifedipine, and Aldactone. Per Cardiology recommendation, she will also have Merrem, given IV by her son and home health. We initially attempted rehab placement, but the patient is very self limiting and does not do much for herself, so rehab was iron ideal situation for her. She will discharge home with family. Apparently, her son is her tariff publishing agent and he gets paid to help her at home. At the time of discharge, the patient's daughter is with her and understands instructions and agrees to plan. Vital signs stable and the patient afebrile. Dictated by Ivett Jones NP MD NEGIN Ordaz/[facility] /[id number]
== END 2020-01-14 20:40 | disposition home or self-care (01) | DRG 291 ==
LOC: ER 14:12 → ERHOLD 17:03 → MED/SURG3 18:33
PROVIDERS: ADMIT Internal Medicine; ATTEND Internal Medicine
PROC: 02HV33Z Insertion of Infusion Device into Superior Vena Cava, Percutaneous Approach (ICD-10-PCS; principal; 2020-01-12)
PROC: B548ZZA Ultrasonography of Superior Vena Cava, Guidance (ICD-10-PCS; principal; 2020-01-12)
DX: I13.0 Hypertensive heart and chronic kidney disease with heart failure and stage 1 through stage 4 chronic kidney disease, or unspecified chronic kidney disease (principal); I50.23 Acute on chronic systolic (congestive) heart failure; J96.20 Acute and chronic respiratory failure, unspecified whether with hypoxia or hypercapnia; G93.41 Metabolic encephalopathy; Z68.45 Body mass index [BMI] 70 or greater, adult; N17.9 Acute kidney failure, unspecified; N39.0 Urinary tract infection, site not specified; E66.2 Morbid (severe) obesity with alveolar hypoventilation; R18.8 Other ascites; Z16.12 Extended spectrum beta lactamase (ESBL) resistance; N18.3 Chronic kidney disease, stage 3 (moderate); E11.22 Type 2 diabetes mellitus with diabetic chronic kidney disease; K75.81 Nonalcoholic steatohepatitis (NASH); G47.33 Obstructive sleep apnea (adult) (pediatric); Z99.81 Dependence on supplemental oxygen; E78.5 Hyperlipidemia, unspecified; E11.42 Type 2 diabetes mellitus with diabetic polyneuropathy; Z90.49 Acquired absence of other specified parts of digestive tract; Z83.3 Family history of diabetes mellitus; Z82.49 Family history of ischemic heart disease and other diseases of the circulatory system; D50.9 Iron deficiency anemia, unspecified; B96.20 Unspecified Escherichia coli [E. coli] as the cause of diseases classified elsewhere; Z91.81 History of falling; Z79.82 Long term (current) use of aspirin; Z79.4 Long term (current) use of insulin
CPT/HCPCS: 36415; 36569; 36600; 71045; 74176; 76705; 80048; 80053; 80061; 81001; 82105; 82140; 82550; 82553; 82607; 82728; 82746; 82805; 82948; 83036; 83540; 83690; 83735; 83880; 84100; 84145; 84443; 84466; 84484; 85025; 85045; 85610; 85730; 86039; 87086; 87186; 87635; 93005; 93306; 94660; 97139; 99251; 99285; J0360; J0696; J1756; J1940; J2270; J2405; J7030; J7040